=== PATIENT | female | born 1955 | race Caucasian/White ===

== ENCOUNTER 2017-09-05 10:02 | Emergency (ER) | payer BC, SELFPAY ==
[2017-09-05 10:33] VITALS: BP 143/77; PULSE 101; RESP 20; TEMP 37.1; O2SAT 95; BMI 22.9
[2017-09-05 10:42] LABS: UTC Influenza A Antigen Positive (Negative); UTC Influenza B Antigen Negative (Negative)
--- NOTE | 2017-09-05 10:55 | HMH.EDUTC ---
[facility] [place] Disposition Clinical Impression: Influenza A Disposition: Home, Self-Care Condition on Discharge: Good Instructions: DI for Influenza -- Adult Additional Instructions: * Start Tamiflu today if you are going to take it. Discussed risks and possible benefits. * Be careful with OTC cold medications. Be sure safe for your BP and your diabetes * Monitor blood sugar closely. remember what we discussed about sick days and how you can get really high or run low with decreased appetite * Lots of rest * Increase fluids, water, gatorade, powerade, pedialyte if infant/toddler/child * Monitor Temp. Tylenol every 4 hours as needed no more then 5 times a day or 4000mg in 24 hours and/or ibuprofen every 6 hours as needed no more then 3200mg in 24 hours (as long as your primary care doctor has told you that it is ok to take both) for fever/aches/pain. ER if fever no less than 101 despite tylenol and Ibuprofen * You (or your child) are contagious until no fever, aches, chills x 24 hours without medication for symptoms. Follow up IMMEDIATELY with primary care or in UTC/ER for new or worsening symptoms, improvement followed by suddenly feeling worse OR no noticeable improvement over the next 48-72 hours. 911 for difficulty breathing Prescriptions: Oseltamivir Phosphate [Tamiflu 75mg Capsule] 75 mg PO BID #10 cap Forms: Work/School Release Time of Disposition: 11:18 Medical Decision Making Vital Signs: 09/05/17 10:33 Temperature 98.8 F Temperature Source Temporal Artery Scan Pulse Rate [Brachial] 101 H Respiratory Rate 20 Blood Pressure [Right Arm] 143/77 Blood Pressure Mean [Right Arm] 99 Blood Pressure Source [Right Arm] Automatic Cuff Blood Pressure Position [Right Arm] Sitting 02 Sat by Pulse Oximetry 95 Oxygen Delivery Method Room Air - Lab Data Lab Results 09/05/17 10:35: Influenza Type A Ag Positive A, Influenza Type B Ag Negative - Bi Inquiry Pt receiving controlled substance: No [facility] [place] HPI - General Stated complaint: poss flu Time Seen by Provider: 09/05/17 10:55 Mode of Arrival: Ambulatory Source of Information: Patient Limitations: No Limitations Description of Symptoms (Recalled from Triage Doc. by RN): FLU LIKE SYMPTOMS SINCE FRIDAY NIGHT, H/A, BODY ACHES, RUNNY NOSE HEENT Symptoms (Recalled from RN notes): Yes Resp Symptoms (Recalled from RN notes): No Skin Symptoms (Recalled from RN notes): No MS Symptoms (Recalled from RN notes): Yes Functional Status (Recalled from RN notes): NA - History of Present Illness Provider Complaint: c/o I think I have the flu . Fever Tmax 102, aches, chills, nonprod cough, rhinorrhea since night before last. Maria E [place] cold has helped make symptoms tolerable. No known sick contacts. Hx of DM. Monitoring BS closely. initially higher but back to normal 80-120's today. - Related Data Home Medications Medication Instructions Recorded Confirmed Empagliflozin [Jardiance] 10 mg PO DAILY 09/05/17 09/05/17 Metformin HCl [Metformin 500mg 500 mg PO DAILY MDD 500MG 09/05/17 09/05/17 Tablet] Previous Rx's Medication Instructions Recorded Oseltamivir Phosphate [Tamiflu 75 mg PO BID #10 cap 09/05/17 75mg Capsule] Allergies Allergy/AdvReac Type Severity Reaction Status Date / Time No Known Allergies Allergy Verified 09/05/17 10:26 - Worker's Comp Is this a Worker's Comp case?: No [facility] History I have reviewed the patient's past medical history: Yes Medical History: Reports:: Diabetes Mellitus Type 2, Hypertension Denies:: Congestive Heart Failure, Chronic Obstructive Pulmonary Disease (COPD), Coronary Artery Disease Other Surgeries: Yes: Hysterectomy-Total, Other (roger, bladder) - *Social History Smoking Status: Current every day smoker Tobacco Type: cigarettes Alcohol Intake: never - Psychiatric History Expresses thoughts of harming self/others: None Suicide Plan Description: No Plan ROS Obtained: Yes Appropriate systems
--- NOTE | 2017-09-05 11:07 | ED_ITS ---
[facility] [place] Clinical Impression: Influenza A Disposition: Home, Self-Care Condition on Discharge: Good Instructions: DI for Influenza -- Adult Additional Instructions: * Start Tamiflu today if you are going to take it. Discussed risks and possible benefits. * Be careful with OTC cold medications. Be sure safe for your BP and your diabetes * Monitor blood sugar closely. remember what we discussed about sick days and how you can get really high or run low with decreased appetite * Lots of rest * Increase fluids, water, gatorade, powerade, pedialyte if /toddler/child * Monitor Temp. Tylenol every 4 hours as needed no more then 5 times a day or 4000mg in 24 hours and/or ibuprofen every 6 hours as needed no more then 3200mg in 24 hours (as long as your primary care doctor has told you that it is ok to take both) for fever/aches/pain. ER if fever no less than 101 despite tylenol and Ibuprofen * You (or your child) are contagious until no fever, aches, chills x 24 hours without medication for symptoms. Follow up IMMEDIATELY with primary care or in UTC/ER for new or worsening symptoms, improvement followed by suddenly feeling worse OR no noticeable improvement over the next 48-72 hours. 911 for difficulty breathing Prescriptions: Oseltamivir Phosphate [Tamiflu 75mg Capsule] 75 mg PO BID #10 cap Forms: Work/School Release Time of Disposition: 11:18 Medical Decision Making Vital Signs: 09/05/17 10:33 Temperature 98.8 F Temperature Source Temporal Artery Scan Pulse Rate [Brachial] 101 H Respiratory Rate 20 Blood Pressure [Right Arm] 143/77 Blood Pressure Mean [Right Arm] 99 Blood Pressure Source [Right Arm] Automatic Cuff Blood Pressure Position [Right Arm] Sitting 02 Sat by Pulse Oximetry 95 Oxygen Delivery Method Room Air - Lab Data Lab Results 09/05/17 10:35: Influenza Type A Ag Positive A, Influenza Type B Ag Negative - Bi Inquiry Pt receiving controlled substance: No [facility] [place] HPI - General Stated complaint: poss flu Time Seen by Provider: 09/05/17 10:55 Mode of Arrival: Ambulatory Source of Information: Patient Limitations: No Limitations Description of Symptoms (Recalled from Triage Doc. by RN): FLU LIKE SYMPTOMS SINCE FRIDAY NIGHT, H/A, BODY ACHES, RUNNY NOSE HEENT Symptoms (Recalled from RN notes): Yes Resp Symptoms (Recalled from RN notes): No Skin Symptoms (Recalled from RN notes): No MS Symptoms (Recalled from RN notes): Yes Functional Status (Recalled from RN notes): NA - History of Present Illness Provider Complaint: c/o I think I have the flu . Fever Tmax 102, aches, chills , nonprod cough, rhinorrhea since night before last. Maria E [place] cold has helped make symptoms tolerable. No known sick contacts. Hx of DM. Monitoring BS closely. initially higher but back to normal 80-120's today. - Related Data Home Medications Medication Instructions Recorded Confirmed Empagliflozin [Jardiance] 10 mg PO DAILY 09/05/17 09/05/17 Metformin HCl [Metformin 500mg 500 mg PO DAILY MDD 500MG 09/05/17 09/05/17 Tablet] Previous Rx's Medication Instructions Recorded Oseltamivir Phosphate [Tamiflu 75 mg PO BID #10 cap 09/05/17 75mg Capsule] Allergies Allergy/AdvReac Type Severity Reaction Status Date / Time No Known Allergies Allergy Verified 09/05/17 10:26 - Worker's Comp
== END 2017-09-05 11:25 | disposition home or self-care (01) ==
PROVIDERS: Emergency Provider Nurse Practitioner Family
DX: J10.1 Influenza due to other identified influenza virus with other respiratory manifestations (principal)
CPT/HCPCS: 87276; 87804; 99202

== ENCOUNTER 2017-10-07 12:40 | Emergency (ER) | payer BC, SELFPAY ==
[2017-10-07 13:41] VITALS: BP 153/87; PULSE 77; RESP 18; TEMP 36.6; O2SAT 99; BMI 23.6
[2017-10-07 14:08] LABS: Basophils % 0.2 % (0.1-2.0); Eosinophils % 0.4 % (0.1-12.0); Hematocrit 43.3 % (37.0-47.0); Hemoglobin 14.1 g/dL (12.2-16.2); Lymphocytes # 2.1 K/mm3 (0.7-4.5); Lymphocytes % 22.6 K/mm3 (10-50); Mean Corpuscular HGB Conc 32.6 g/dL (31.8-35.4); Mean Corpuscular Hemoglobin 30.7 pg (27.0-31.2); Mean Corpuscular Volume 94.2 fl (81-99); Mean Platelet Volume 7.6 fl (7.4-10.4); Monocytes # 0.3 K/mm3 (0.1-1.0); Monocytes % 3.7 % (1.7-9.3); Neutrophils # 6.7 K/mm3 (1.8-7.8); Neutrophils % 73.2 % (37.0-80.0); Platelet Count 223 K/mm3 (142-424); Red Cell Distribution Width 14.5 % (11.5-17.5); White Blood Count 9.2 K/mm3 (4.8-10.8)
[2017-10-07 14:25] LABS: Alanine Aminotransferase 43 U/L (12-78); Albumin Level 3.9 gm/dL (3.4-5.0); Albumin/Globulin Ratio 0.9 (1.1-1.8); Alkaline Phosphatase 97 U/L (46-116); Anion Gap 12.2 mEq/L (5-15); Aspartate Amino Transferase 26 U/L (15-37); Bilirubin,Total 0.3 mg/dL (0.2-1.0); Blood Urea Nitrogen 15 mg/dL (7-18); Calcium 9.2 mg/dL (8.5-10.1); Carbon Dioxide 31 mmol/L (21.0-32.0); Chloride 103 mmol/L (98-107); Creatinine Clearance Estimated 95 mL/min (0-300); Creatinine,Serum 0.62 mg/dL (0.55-1.02); Estimated Glomerular Filt Rate 98 ml/min (>60); GFR (African American) 119 ML/MIN (>60); Globulin 4.5 gm/dl (1.3-3.2); Glucose 128 mg/dL (74-106); Potassium 4.2 mmoL/L (3.5-5.1); Sodium 142 mmol/L (136-145); Total Protein,Serum 8.4 gm/dL (6.4-8.2)
[2017-10-07 14:42] VITALS: BP 135/77; PULSE 70; RESP 18; TEMP 36.8; O2SAT 97
--- NOTE | 2017-10-07 18:26 | HMH.EDNVD ---
ED Disposition Clinical Impression: Viral gastroenteritis Hypertension Qualifiers: Hypertension type: essential hypertension Qualified Code(s): I10 - Essential (primary) hypertension Sinusitis Qualifiers: Sinusitis location: maxillary Chronicity: acute Recurrence: non-recurrent Qualified Code(s): J01.00 - Acute maxillary sinusitis, unspecified Disposition: Home, Self-Care Condition on Discharge: Good Instructions: Sinus Headache, High Blood Pressure, DI for Nausea -- Adult Additional Instructions: Please drink plenty of fluids, take [id number] Imodium for, as needed, check your blood pressure at home, address, at least twice a day, follow-up with PCP within 1-2 weeks for blood pressure reassessment. Prescriptions: Amlodipine Besylate [Norvasc 5mg tablet] 5 mg PO DAILY #30 tab Amoxicillin/Potassium Clav [Augmentin 875-125 Tablet] 1 tab PO Q12H #20 tab Ondansetron [Zofran 4mg ODT] 4 mg PO Q4H PRN #28 tab.rapdis PRN Reason: Nausea Time of Disposition: 18:30 - Critical Care Critical Care Time: No Attestation: On 10/07/17, the high probability of a clinically significant, sudden or life threatening deterioration of the following system(s) required my full and direct attention, intervention and personal management. The time I documented below is in addition to time spent performing reported procedures but includes the following listed in this critical care notation. Medical Decision Making - Medical Records Medical records reviewed: Yes: I reviewed the patient's medical records. Vital Signs: 10/07/17 13:41 10/07/17 14:42 10/07/17 18:45 Temperature 97.9 F 98.2 F 97.8 F Temperature Source Oral Oral Oral Pulse Rate 73 Pulse Rate [Right Radial] 77 70 Respiratory Rate 18 18 16 Blood Pressure 150/86 Blood Pressure [Right Arm] 153/87 135/77 Blood Pressure Mean [Right Arm] 109 96 Blood Pressure Source Automatic Cuff Blood Pressure Source [Right Arm] Automatic Cuff Automatic Cuff Blood Pressure Position Sitting Blood Pressure Position [Right Arm] Sitting 02 Sat by Pulse Oximetry 99 97 Oxygen Delivery Method Room Air Room Air Room Air - Lab Data Lab results reviewed: Yes: I reviewed the patient's lab results. Lab Results 10/07/17 13:57: WBC 9.2, RBC 4.60, Hgb 14.1, Hct 43.3, MCV 94.2, MCH 30.7, MCHC 32.6, RDW 14.5, Plt Count 223, MPV 7.6, Neut % (Auto) 73.2, Lymph % (Auto) 22.6, [place] % (Auto) 3.7, Eos % (Auto) 0.4, Baso % (Auto) 0.2, Neut # (Auto) 6.7, Lymph # (Auto) 2.1, [place] # (Auto) 0.3, Eos # (Auto) 0.0, Baso # (Auto) 0.0 10/07/17 13:57: Sodium 142, Potassium 4.2, Chloride 103, Carbon Dioxide 31, Anion Gap 12.2, BUN 15, Creatinine 0.62, Estimated Creat Clear 95, Estimated GFR 98, Est GFR ( Amer) 119, Glucose 128 H, Calcium 9.2, Total Bilirubin 0.3, AST 26, ALT 43, Alkaline Phosphatase 97, Total Protein 8.4 H, Albumin 3.9, Globulin 4.5 H, Albumin/Globulin Ratio 0.9 L Result diagrams: 10/07/17 13:57 10/07/17 13:57 Orders (Tests/Meds): ED MEDICATIONS Discontinued Medications Generic Name Dose Route Start Last Admin Trade Name Abigail PRN Reason Stop Dose Admin Amoxicillin/Clavulanate Potassium 1 each 10/07/17 18:25 10/07/17 18:48 Augmentin 500mg Tablet PO 10/07/17 18:26 1 each ONCE ONE Administration Protocol Clonidine HCl 0.2 mg 10/07/17 21:00 Clonidine 0.2mg Tablet PO 11/06/17 20:59 TID CHAYITO Clonidine HCl 0.1 mg 10/07/17 18:44 10/07/17 18:46 Clonidine 0.1mg Tablet PO 10/07/17 18:45 0.1 mg ONCE ONE Administration Diphenoxylate HCl/Atropine 5 mg 10/07/17 13:59 10/07/17 14:08 Lomotil 2.5mg Tablet PO 10/07/17 14:00 5 mg ONCE ONE Administration Loperamide HCl 4 mg 10/07/17 13:58 10/07/17 14:07 Imodium 2 Mg Capsule PO 10/07/17 13:59 4 mg ONCE ONE Administration Ondansetron HCl 4 mg 10/07/17 13:58 10/07/17 14:07 Zofran 4mg/2ml Vial IV 10/07/17 13:59 4 mg ONCE ONE Administration - Floridalma
--- NOTE | 2017-10-07 18:30 | ED_ITS ---
ED Disposition Clinical Impression: Viral gastroenteritis Hypertension Qualifiers: Hypertension type: essential hypertension Qualified Code(s): I10 - Essential ( primary) hypertension Sinusitis Qualifiers: Sinusitis location: maxillary Chronicity: acute Recurrence: non-recurrent Qualified Code(s): J01.00 - Acute maxillary sinusitis, unspecified Disposition: Home, Self-Care Condition on Discharge: Good Instructions: Sinus Headache, High Blood Pressure, DI for Nausea -- Adult Additional Instructions: Please drink plenty of fluids, take [id number] Imodium for, as needed, check your blood pressure at home, address, at least twice a day, follow-up with PCP within 1-2 weeks for blood pressure reassessment. Prescriptions: Amlodipine Besylate [Norvasc 5mg tablet] 5 mg PO DAILY #30 tab Amoxicillin/Potassium Clav [Augmentin 875-125 Tablet] 1 tab PO Q12H #20 tab Ondansetron [Zofran 4mg ODT] 4 mg PO Q4H PRN #28 tab.rapdis PRN Reason: Nausea Time of Disposition: 18:30 - Critical Care Critical Care Time: No Attestation: On 10/07/17, the high probability of a clinically significant, sudden or life threatening deterioration of the following system(s) required my full and direct attention, intervention and personal management. The time I documented below is in addition to time spent performing reported procedures but includes the following listed in this critical care notation. Medical Decision Making - Medical Records Medical records reviewed: Yes: I reviewed the patient's medical records. Vital Signs: 10/07/17 13:41 10/07/17 14:42 10/07/17 18:45 Temperature 97.9 F 98.2 F 97.8 F Temperature Source Oral Oral Oral Pulse Rate 73 Pulse Rate [Right Radial] 77 70 Respiratory Rate 18 18 16 Blood Pressure 150/86 Blood Pressure [Right Arm] 153/87 135/77 Blood Pressure Mean [Right Arm] 109 96 Blood Pressure Source Automatic Cuff Blood Pressure Source [Right Arm] Automatic Cuff Automatic Cuff Blood Pressure Position Sitting Blood Pressure Position [Right Arm] Sitting 02 Sat by Pulse Oximetry 99 97 Oxygen Delivery Method Room Air Room Air Room Air - Lab Data Lab results reviewed: Yes: I reviewed the patient's lab results. Lab Results 10/07/17 13:57: WBC 9.2, RBC 4.60, Hgb 14.1, Hct 43.3, MCV 94.2, MCH 30.7, MCHC 32.6, RDW 14.5, Plt Count 223, MPV 7.6, Neut % (Auto) 73.2, Lymph % (Auto) 22.6 , [place] % (Auto) 3.7, Eos % (Auto) 0.4, Baso % (Auto) 0.2, Neut # (Auto) 6.7, Lymph # (Auto) 2.1, [place] # (Auto) 0.3, Eos # (Auto) 0.0, Baso # (Auto) 0.0 10/07/17 13:57: Sodium 142, Potassium 4.2, Chloride 103, Carbon Dioxide 31, Anion Gap 12.2, BUN 15, Creatinine 0.62, Estimated Creat Clear 95, Estimated GFR 98, Est GFR ( Amer) 119, Glucose 128 H, Calcium 9.2, Total Bilirubin 0.3, AST 26, ALT 43, Alkaline Phosphatase 97, Total Protein 8.4 H, Albumin 3.9, Globulin 4.5 H, Albumin/Globulin Ratio 0.9 L Result diagrams: 10/07/17 13:57 10/07/17 13:57 Orders (Tests/Meds): ED MEDICATIONS Discontinued Medications Generic Name Dose Route Start Last Admin Trade Name Abigail PRN Reason Stop Dose Admin Amoxicillin/Clavulanate Potassium 1 each 10/07/17 18:25 10/07/17 18:48 Augmentin 500mg Tablet PO 10/07/17 18:26 1 each ONCE ONE Administration Protocol Clonidine HCl 0.2 mg 10/07/17 21:00 Clonidine 0.2mg Tablet PO 0
[2017-10-07 18:45] VITALS: BP 150/86; PULSE 73; RESP 16; TEMP 36.6; O2SAT 99
== END 2017-10-07 18:51 | disposition home or self-care (01) ==
PROVIDERS: Emergency Provider Emergency Medicine
DX: I10 Essential (primary) hypertension (principal); J01.00 Acute maxillary sinusitis, unspecified; R19.7 Diarrhea, unspecified; R11.2 Nausea with vomiting, unspecified; E11.9 Type 2 diabetes mellitus without complications
CPT/HCPCS: 80053; 85025; 99282; J2405

== ENCOUNTER 2020-10-29 09:20 | Emergency (ER) | payer OTHER, SELFPAY ==
[2020-10-29 09:30] VITALS: BP 125/95; PULSE 96; RESP 20; TEMP 36.5; O2SAT 98; BMI 28.3
--- NOTE | 2020-10-29 09:42 | HMH.EDUTC ---
[facility] [place]ression: Low back strain Qualifiers: Encounter type: initial encounter Qualified Code(s): S39.012A - Strain of muscle, fascia and tendon of lower back, initial encounter Low back pain Qualifiers: Chronicity: acute Back pain laterality: unspecified Sciatica presence: without sciatica Qualified Code(s): M54.5 - Low back pain Disposition: Home, Self-Care Condition on Discharge: Good Instructions: DI for Low Back Pain, DI for Back Strain or Sprain Additional Instructions: Go home and rest. It would be best if you rested tomorrow too. No heavy lifting. No twisting. Take the oral medications as directed. The muscle relaxer (robaxin) will make you drowsy, so don't drive or operate heavy machinery after taking it. Don't take the robaxin (methocarbimol) if you take the cyclobenzaprine (flexeril) that was prescribed by your primary care provider. These are similar medications and you cannot take them both. Follow up with your regular doctor. GO TO THE ER FOR ANY WORSENING SYMPTOMS OR CONCERN, ESPECIALLY BOWEL OR BLADDER ISSUES, SADDLE AREA NUMBNESS, FEVER, ETC The steroid shot that we gave you today can make your blood sugar go up. Watch your blood sugars closely. Follow your diabetic diet closely. If your blood sugars are consistently running high (over 200 to 250 or so) please stop the steroids (prednisone) and follow up with your primary care physician for further treatment. Prescriptions: predniSONE [Prednisone 20mg Tab] 20 mg PO BID 4 Days #8 tab Transmission Status: Received by [place] [facility] Methocarbamol [Robaxin 500mg Tab] 500 mg PO BIDP PRN #30 tab PRN Reason: Muscle Spasm Transmission Status: Received by [facility] Referrals: Florian Gutierrez [Primary Care Provider] - Forms: Work/School Release Time of Disposition: 10:25 Medical Decision Making - Medical Records Medical records reviewed: No: I reviewed the patient's medical records. - Bi Inquiry Pt receiving controlled substance: No Vital Signs: 10/29/20 09:30 10/29/20 10:30 Temperature 97.7 F 97.7 F Temperature Source Oral Pulse Rate 96 H Pulse Rate [Right Brachial] 96 H Respiratory Rate 20 20 Blood Pressure 125/95 H Blood Pressure [Right Arm] 125/95 H Blood Pressure Mean [Right Arm] 105 Blood Pressure Source [Right Arm] Automatic Cuff Blood Pressure Position [Right Arm] Sitting 02 Sat by Pulse Oximetry 98 Oxygen Delivery Method Room Air Orders (Tests/Meds): ED MEDICATIONS Discontinued Medications Generic Name Dose Route Start Last Admin Trade Name Freq PRN Reason Stop Dose Admin Ketorolac Tromethamine 30 mg 10/29/20 10:12 10/29/20 10:20 Ketorolac 60mg/2ml Vial IM 10/29/20 10:13 30 mg ONCE ONE Administration Methylprednisolone Sodium Succinate 60 mg 10/29/20 10:13 10/29/20 10:20 Methylprednisolone Sod Succ 125mg Vial IM 10/29/20 10:14 60 mg ONCE ONE Administration - Radiology Data #1 Image(s): L-Spine Image Reviewed: Yes I reviewed the patient's radiology image, Yes I have reviewed radiologist's interpretation Preliminary Findings: Normal/NAD, No Fracture Seen PROCEDURE: XR LUMBAR SPINE 2-3V CLINICAL INDICATION: work injury Pain COMPARISON: No exams were available for comparison FINDINGS: No fracture or dislocation. No lytic or blastic change. There is normal mineralization. Degenerative disc disease is present at L5-S1. There are small anterior osteophytes levels. There is diffuse vascular calcification. Other findings:None. IMPRESSION: Degenerative disc disease L5-S1 Dictated by: Anil Hernandez MD 10/29/2020 11:51 Anil Hernandez MD in [place] 10/29/2020 11:51 [facility] [place] - General Stated complaint: WC, [id number] Back pain, lifted heavy object Time Seen by Provider: 10/29/20 09:42 - History of Present Illness Provider Complaint: She states that 6 days ago she was lifting a heavy bag of clot
[2020-10-29 10:30] VITALS: BP 125/95; PULSE 96; RESP 20; TEMP 36.5; O2SAT 98
== END 2020-10-29 10:34 | disposition home or self-care (01) ==
PROVIDERS: Emergency Provider Nurse Practitioner Family; PCP General Practice
DX: S39.012A Strain of muscle, fascia and tendon of lower back, initial encounter (principal); X50.0XXA Overexertion from strenuous movement or load, initial encounter; Y92.69 Other specified industrial and construction area as the place of occurrence of the external cause; Y99.0 Civilian activity done for income or pay
CPT/HCPCS: 72100; 96372; 99202; G0463

== ENCOUNTER 2022-08-11 09:13 | Emergency (ER) | payer MEDICARE, SELFPAY ==
[2022-08-11 09:45] VITALS: BP 141/90; PULSE 101; RESP 17; TEMP 37.1; O2SAT 98; BMI 29.5
--- NOTE | 2022-08-11 10:15 | EXP.UTC ---
Discharge Plan Disposition Patient Disposition: Home, Self-Care Condition: Good Prescriptions Prescriptions: New albuterol sulfate [ProAir HFA] 90 mcg/actuation HFA aerosol inhaler 1 inh inhalation QID PRN (Reason: shortness of breath or wheezing) Qty: 6.7 0RF No Action metformin 500 MG tablet 1,000 mg PO DAILY cyclobenzaprine 10 MG tablet 10 mg PO TIDP PRN (Reason: LOWER BACK PAIN) lisinopril-hydrochlorothiazide 1 EACH tablet 1 tab PO DAILY meloxicam 15 MG tablet 15 mg PO DAILY amitriptyline 10 MG tablet 10 mg PO HS duloxetine 20 MG capsule,delayed release(DR/EC) 20 mg PO DAILY methocarbamol 500 MG tablet 500 mg PO BIDP PRN (Reason: Muscle Spasm) Qty: 30 0RF prednisone 20 MG tablet 20 mg PO BID 4 Days Qty: 8 0RF Referrals Follow up/Referrals: Peter Patel MD [Primary Care Provider] - See instructions Activity Restrictions/Add. Instructions Additional Instructions/Restrictions: Tylenol and ibuprofen as needed for pain or fever Humidifier/vaporizer/hot steamy shower Follow-up with primary care tomorrow. Follow-up immediately in the ER of the [facility] for new or worsening symptoms or no noticeable improvement over the next 48-72 hours. Stop smoking Inhaler every 4-6 hours as needed. Should help open airways improved cough, wheezing, shortness of breath Clinical Impressions Clinical Impression: Bronchitis Instructions Patient Instructions: Acute Bronchitis Discharge ED [facility] HPI General Stated complaint: Bodyaches, chills, sore throat Mode of Arrival: Ambulatory Source of Information: Patient Limitations: No Limitations Time Seen by Provider: 08/11/22 10:15 Description of Symptoms (Recalled from Triage Doc. by RN): PATIENT C/O BODY ACHES AND WEAKNESS SINCE YESTERDAY HEENT Symptoms (Recalled from RN notes): No Resp Symptoms (Recalled from RN notes): No Skin Symptoms (Recalled from RN notes): No MS Symptoms (Recalled from RN notes): No Functional Status (Recalled from RN notes): WNL History of Present Illness Provider Complaint: 66 yr old female presents for coughing up clear sputum , body aches and fever since yesterday. no ill contacts Related Data Home Medications Medication Instructions Recorded Confirmed metformin 500 mg tablet 1,000 mg PO DAILY Diabetes 09/05/17 10/29/20 amitriptyline 10 mg tablet 10 mg PO HS SLEEP 10/29/20 10/29/20 cyclobenzaprine 10 mg tablet 10 mg PO TIDP PRN LOWER BACK PAIN 10/29/20 10/29/20 duloxetine 20 mg capsule,delayed 20 mg PO DAILY Anxiety 10/29/20 10/29/20 release lisinopril 20 1 tab PO DAILY Hypertension 10/29/20 10/29/20 mg-hydrochlorothiazide 12.5 mg tablet meloxicam 15 mg tablet 15 mg PO DAILY Arthritis 10/29/20 10/29/20 Previous Rx's Medication Instructions Recorded methocarbamol 500 mg tablet 500 mg PO BIDP PRN Muscle Spasm 10/29/20 #30 tabs prednisone 20 mg tablet 20 mg PO BID 4 days #8 tabs 10/29/20 albuterol sulfate 90 mcg/actuation 1 inh inhalation QID PRN shortness 08/11/22 aerosol inhaler (ProAir HFA) of breath or wheezing #6.7 grams Allergies Allergy/AdvReac Type Severity Reaction Status Date / Time No Known Allergies Allergy Verified 09/05/17 10:26 Worker's Comp Is this a Worker's Comp case?: No [facility] Disclaimer: The information contained in this section may have been updated after the patient was seen, as this information can be updated by other users. Medical History (Reviewed 08/11/22 @ 10:15 by Jaspreet Portillo ([facility]), [employer]) Cancer Diabetes mellitus, type 2 Hyperlipidemia Hypertension Urinary tract infection Surgical History (Reviewed 08/11/22 @ 10:16 by Jaspreet Portillo ([facility]), [employer] ATTENDANT) History of bladder surgery History of cholecystectomy History of hysterectomy Social History (Reviewed 08/11/22 @ 10:16 by Jaspreet Portillo ([facility]), [employer] ATTENDANT) Smoking Status: Current every day smoker tobacco type: cigarettes second hand [employer]
[2022-08-11 10:23] LABS: Coronavirus 19, PCR Not Detected (NotDetected); Influenza A, PCR Not Detected (NotDetected); Influenza B, PCR Not Detected (NotDetected)
[2022-08-11 10:26] VITALS: BP 141/90; PULSE 101; RESP 17; TEMP 37.1; O2SAT 98
== END 2022-08-11 10:37 | disposition home or self-care (01) ==
PROVIDERS: Emergency Provider Nurse Practitioner Family; PCP Family Medicine
DX: J40 Bronchitis, not specified as acute or chronic (principal)
CPT/HCPCS: 99212; C9803; G0463; U0003; U0005

== ENCOUNTER 2022-08-30 11:29 | Emergency (ER) | payer MEDICARE, SELFPAY ==
[2022-08-30 12:20] VITALS: BP 195/90; PULSE 90; RESP 16; TEMP 36.6; O2SAT 98; BMI 27.4
--- NOTE | 2022-08-30 12:50 | EXP.UTC ---
Discharge Plan Disposition Patient Disposition: Home, Self-Care Condition: Good Prescriptions Prescriptions: New cyclobenzaprine 10 mg tablet 10 mg PO TID PRN (Reason: muscle spasm) Qty: 15 0RF No Action metformin 500 MG tablet 1,000 mg PO DAILY cyclobenzaprine 10 MG tablet 10 mg PO TIDP PRN (Reason: LOWER BACK PAIN) lisinopril-hydrochlorothiazide 1 EACH tablet 1 tab PO DAILY meloxicam 15 MG tablet 15 mg PO DAILY amitriptyline 10 MG tablet 10 mg PO HS duloxetine 20 MG capsule,delayed release(DR/EC) 20 mg PO DAILY methocarbamol 500 MG tablet 500 mg PO BIDP PRN (Reason: Muscle Spasm) Qty: 30 0RF prednisone 20 MG tablet 20 mg PO BID 4 Days Qty: 8 0RF albuterol sulfate [ProAir HFA] 90 mcg/actuation HFA aerosol inhaler 1 inh inhalation QID PRN (Reason: shortness of breath or wheezing) Qty: 6.7 0RF Referrals Follow up/Referrals: Peter Patel MD [Primary Care Provider] - See instructions Activity Restrictions/Add. Instructions Additional Instructions/Restrictions: *Ibuprofen albino 6 hours with meal as needed for pain/inflammation if you can take it *Remember you had a Toradol shot in the clinic today, which is similar to Motrin *Not additional anti-inflammatory like motrin, aleve, advil with the above amount of ibuprofen. You can still take Tylenol every 4 hours as needed if you need something else for pain *Ice 20 minutes every 2 hours for the first 48 hours after the initial injury followed by moist heat every 20 minutes 3-4 times a day to affected area *Muscle relaxer every 8 hours as needed for muscle spasms but remember, it WILL cause drowsiness You cannot take it and drive, operate machinery or care for small children. *Keep this area active, no movement leads to more stiffness, However take it easy and avoid heavy lifting pushing or pulling *Follow up with you family doctor if no improvement for further treatment Clinical Impressions Clinical Impression: Low back pain Qualifiers: Chronicity: unspecified Back pain laterality: bilateral Sciatica presence: without sciatica Qualified Code(s): M54.50 - Low back pain, unspecified Instructions Patient Instructions: Low Back Pain, DI for Low Back Pain, Cyclobenzaprine Discharge ED Provider: Nicole Reyna [facility] HPI General Stated complaint: Lower back pain Mode of Arrival: Ambulatory Source of Information: Patient Limitations: No Limitations Time Seen by Provider: 08/30/22 12:50 Description of Symptoms (Recalled from Triage Doc. by RN): pt comes in with c/o back pain that began friday. HEENT Symptoms (Recalled from RN notes): No Resp Symptoms (Recalled from RN notes): No Skin Symptoms (Recalled from RN notes): No MS Symptoms (Recalled from RN notes): Yes Functional Status (Recalled from RN notes): n/a History of Present Illness Provider Complaint: Patient states she started having pain in her lower back on Fri States that it has continued to get worse States that hurts when she moves Denies loss of control of bowel or bladder Related Data Home Medications Medication Instructions Recorded Confirmed metformin 500 mg tablet 1,000 mg PO DAILY Diabetes 09/05/17 08/30/22 amitriptyline 10 mg tablet 10 mg PO HS SLEEP 10/29/20 08/30/22 cyclobenzaprine 10 mg tablet 10 mg PO TIDP PRN LOWER BACK PAIN 10/29/20 08/30/22 duloxetine 20 mg capsule,delayed 20 mg PO DAILY Anxiety 10/29/20 08/30/22 release lisinopril 20 1 tab PO DAILY Hypertension 10/29/20 08/30/22 mg-hydrochlorothiazide 12.5 mg tablet meloxicam 15 mg tablet 15 mg PO DAILY Arthritis 10/29/20 08/30/22 Previous Rx's Medication Instructions Recorded methocarbamol 500 mg tablet 500 mg PO BIDP PRN Muscle Spasm 10/29/20 #30 tabs prednisone 20 mg tablet 20 mg PO BID 4 days #8 tabs 10/29/20 albuterol sulfate 90 mcg/actuation 1 inh inhalation QID PRN shortness 08/11/22 aerosol inhaler (ProAir HFA) of breath or wheezing #6.7 grams cyclobenzaprine
--- NOTE | 2022-08-30 12:59 | XR_ITS ---
FINAL REPORT CLINICAL HISTORY: low back pain COMPARISON: October 2020 FINDINGS: AP and lateral views were obtained. There is no acute fracture. There is no malalignment. There are mild and moderate degenerative changes. There is disc space narrowing at L5-S1. There is mild rightward curvature. There is moderate vascular calcification. IMPRESSION: Mild and moderate degenerative changes, stable. Reviewed, Interpreted and Dictated by Nicko Arnett III, MD Transcribed by Yg De La Cruz Authenticated and [facility]
[2022-08-30 14:25] VITALS: BP 155/88; PULSE 90; RESP 16; TEMP 36.6
[2022-08-30 14:36] LABS: Apearance,Urine Clear (Clear); Bilirubin,Urine Negative (Negative); Blood, Urine Negative (Negative); Color,Urine Yellow (Yellow); Glucose,Urine (UA) Negative (Negative); Ketones,Urine Negative (Negative); PH,Urine 5.5 (5.0-8.5); Protein,Urine Negative (Negative)
[2022-08-30 14:37] LABS: UTC Leukocyte Esterase,Urine Negative (Negative); UTC Nitrate,Urine Negative (Negative); Urobilinogen,Urine 0.2 EU/dl (0.2)
== END 2022-08-30 14:25 | disposition home or self-care (01) ==
PROVIDERS: Emergency Provider Nurse Practitioner; PCP Family Medicine
DX: M54.50 Low back pain, unspecified (principal)
CPT/HCPCS: 72100; 81003; 99212; G0463

== ENCOUNTER → 2022-11-22 09:08 | Outpatient (CLI) | payer MEDICARE, SELFPAY ==
--- NOTE | 2022-11-22 | CA_ITS ---
FINAL REPORT TECHNIQUE: Ultrasound images of the deep venous system were obtained from the left groin to the calf veins. CLINICAL HISTORY: .LEG PAIN BEGINNING IN HIP DOWN FINDINGS: The deep venous system is normally compressible. Normal flow is identified. IMPRESSION: No evidence of left lower extremity DVT. Reviewed, Interpreted and Dictated by Grey Prieto MD Transcribed by Clau Pena Authenticated and [facility]
--- NOTE | 2022-11-22 09:19 | XR_ITS ---
FINAL REPORT CLINICAL HISTORY: LEFT HIP PAIN FINDINGS: LEFT HIP Three views were obtained. There is no acute fracture or dislocation. There is a small osteophyte at the inferior margin of the femoral head. No soft tissue abnormality is identified. IMPRESSION: Mild osteoarthritis. Reviewed, Interpreted and Dictated by Grey Prieto MD Transcribed by Alysia Mckeon Authenticated and . [facility]
--- NOTE | 2022-11-22 09:19 | XR_ITS ---
FINAL REPORT CLINICAL HISTORY: low back pain COMPARISON: 08/30/2022 FINDINGS: LUMBAR SPINE Five views demonstrate no acute fracture. There is moderate to advanced disc space narrowing at L5-S1. Note is made of vascular calcification. There is no malalignment. IMPRESSION: Moderate to advanced disc space narrowing at L5-S1. No significant change from previous. Reviewed, Interpreted and Dictated by Grey Prieto MD Transcribed by Alysia Mckeon Authenticated and [facility]
== END ==
PROVIDERS: PCP Family Medicine; Visit Provider Nurse Practitioner Family
DX: M79.605 Pain in left leg (principal); M79.662 Pain in left lower leg; M25.552 Pain in left hip
CPT/HCPCS: 72110; 73502; 93971

== ENCOUNTER 2023-01-02 10:00 | Outpatient (RCR) | payer MEDICARE, SELFPAY | END 2023-01-02 10:05 | disposition home or self-care (01) | LOC: PT 10:00 | PROVIDERS: PCP Family Medicine; Visit Provider Specialist/Technologist Athletic Trainer | DX: M51.36 Other intervertebral disc degeneration, lumbar region (principal) | CPT/HCPCS: 97010; 97012; 97014; 97110; 97163; G0283 ==

== ENCOUNTER → 2023-01-20 09:07 | Outpatient (CLI) | payer MEDICARE, SELFPAY ==
--- NOTE | 2023-01-20 09:13 | XR_ITS ---
FINAL REPORT CLINICAL HISTORY: post jose FINDINGS: Using L1-4, the bone mineral density of the spine is 1.029 g/cm2, corresponding to T-score of -0.2. Using the left hip, the bone mineral density of the femoral neck is 0.881 g/cm2, corresponding to a T-score of -0.5. Using the right hip, the bone mineral density of the femoral neck is 0.850 g/cm2, corresponding to a T-score of 1.0. IMPRESSION: Normal bone mineral density of the lumbar spine and bilateral hips. Reviewed, Interpreted and Dictated by Nicko Arnett III, MD Transcribed by Yg De La Cruz Authenticated and [facility]
== END ==
PROVIDERS: PCP Family Medicine; Visit Provider Family Medicine
DX: Z78.0 Asymptomatic menopausal state (principal)
CPT/HCPCS: 77080

== ENCOUNTER 2023-10-29 14:38 | Outpatient (CLI) | payer MEDICARE, SELFPAY ==
--- NOTE | 2023-10-29 14:49 | XR_ITS ---
FINAL REPORT CLINICAL HISTORY: CHRONIC COUGH, smoker FINDINGS: PA and lateral views of the chest are obtained. There is no prior exam for comparison. The cardiac and mediastinal silhouettes are within normal limits. The lungs are clear. There is no pleural effusion, pneumothorax, or acute osseous abnormality. IMPRESSION: No radiographic evidence of acute cardiac or pulmonary disease. Reviewed, Interpreted and Dictated by [place]ia Brannon MD Transcribed by Alysia Mckeon Authenticated and [facility]
== END 2023-10-29 23:59 ==
PROVIDERS: PCP Family Medicine; Visit Provider Family Medicine
DX: R05.3 Chronic cough (principal); F17.210 Nicotine dependence, cigarettes, uncomplicated
CPT/HCPCS: 71046

== ENCOUNTER 2024-02-27 13:41 | Outpatient (CLI) | payer MEDICARE, SELFPAY ==
--- NOTE | 2024-02-27 | CA_ITS ---
FINAL REPORT TECHNIQUE: Compression gayle scale and Doppler evaluation CLINICAL HISTORY: Chronic right leg pain, Smoker FINDINGS: Femoral and popliteal veins show normal compressibility and flow. Visualized portion of the calf veins are patent by Doppler exam. IMPRESSION: No evidence of right lower extremity deep venous thrombosis Reviewed, Interpreted and Dictated by Mansoor Luther MD Transcribed by Alysia Mckeon Authenticated and [facility]
== END 2024-02-27 23:59 | disposition home or self-care (01) ==
LOC: RT 13:42
PROVIDERS: PCP Family Medicine; Visit Provider Nurse Practitioner
DX: M79.604 Pain in right leg (principal)
CPT/HCPCS: 93971

== ENCOUNTER 2024-04-22 10:20 | Outpatient (CLI) | payer MEDICARE, SELFPAY ==
[2024-04-22 10:49] LABS: Basophils # 0.1 K/mm3 (0-0.2); Basophils % 0.6 % (0.1-2.0); Eosinophils # 0.1 K/mm3 (0.0-0.4); Hematocrit 44.9 % (37.0-47.0); Hemoglobin 14.2 g/dL (12.2-16.2); Lymphocytes # 2.6 K/mm3 (0.7-4.5); Lymphocytes % 28.9 % (10-50); Mean Corpuscular HGB Conc 31.6 g/dL (31.8-35.4); Mean Corpuscular Volume 98.1 fl (81-99); Monocytes # 0.3 K/mm3 (0.1-1.0); Monocytes % 3.3 % (1.7-9.3); Neutrophils % 66.1 % (37.0-80.0); Platelet Count 254 K/mm3 (142-424); Red Blood Count 4.58 M/mm3 (4.20-5.40); Red Cell Distribution Width 14.7 % (11.5-17.5)
[2024-04-22 11:19] LABS: Albumin Level 4.6 g/dl (3.5-5.0); Chloride 104 mmol/L (98-107)
[2024-04-22 11:20] LABS: Potassium 3.8 mmoL/L (3.5-5.1); Sodium 139 mmol/L (136-145)
[2024-04-22 11:22] LABS: Alanine Aminotransferase 23 U/L (12-78); Anion Gap 12.8 mEq/L (5-15); Aspartate Amino Transferase 27 U/L (14-36); Blood Urea Nitrogen 8 mg/dl (7-17); Carbon Dioxide 26 mmol/L (22.0-30.0); Estimated Glomerular Filt Rate 100 ml/min (>60); GFR (African American) 121 ML/MIN (>60); Total Protein,Serum 7.6 g/dl (6.3-8.2)
[2024-04-22 11:23] LABS: Alkaline Phosphatase 75 U/L (38-126); Bilirubin,Direct 0.5 mg/dl (0.0-0.4); Bilirubin,Indirect 0.1 mg/dL (0.0-0.9); Bilirubin,Total 0.6 mg/dl (0.2-1.3); Calcium 9.6 mg/dl (8.4-10.2); Chol/HDL Ratio 2.4 (1-3.5); Cholesterol 158 mg/dl (140-200); Glucose 86 mg/dl (74-100); HDL Cholesterol 66 mg/dl (40-60); Magnesium 1.8 mg/dl (1.6-2.3); Triglycerides 101 mg/dl (30-150); VLDL Cholesterol 20 mg/dL (0-40)
[2024-04-22 11:34] LABS: Direct LDL Cholesterol 64.83 mg/dL (100-129)
[2024-04-22 11:42] LABS: Free T4 (Free Thyroxine) 1.16 ng/dl (0.78-2.19)
[2024-04-22 11:56] LABS: Thyroid Stimulating Hormone 1.07 uIU/mL (0.465-4.68)
[2024-04-22 12:20] LABS: Troponin I < 0.01 ng/ml (0.00-0.034)
== END 2024-04-22 23:59 | disposition home or self-care (01) ==
LOC: LAB 10:21
PROVIDERS: PCP Nurse Practitioner; Visit Provider Nurse Practitioner
DX: I10 Essential (primary) hypertension (principal); I20.9 Angina pectoris, unspecified; R06.00 Dyspnea, unspecified; R53.83 Other fatigue; E78.5 Hyperlipidemia, unspecified; E11.9 Type 2 diabetes mellitus without complications
CPT/HCPCS: 36415; 80048; 80061; 80076; 83735; 84439; 84443; 84484; 85025

== ENCOUNTER 2024-04-23 06:21 | Outpatient (CLI) | payer MEDICARE, SELFPAY ==
--- NOTE | 2024-04-23 | CA_ITS ---
APPROVED REPORT Exam: Pharmacologic Technologist: Zunilda Quevedo, Ht: 5 ft 5 in Wt: 154 lbs BSA: 1.77 m2 HR: 75 bpm BP: 207/103 mmHg Rhythm: NSR, PAC, NS T wave abn Indications: Angina, Dyspnea Medical History Medications: Metformin,,,,, Trazadone,,,,, Atorvastatin,,,,, INSULIN,,,,, MeLOXICAM,,,,, DulOXETINE,,,,, Losartan HCTZ,,,,, Cardiac Risk Factors: HTN, Hyperlipidemia, Diabetes (non-insulin), Smoking Stress Test Details Test: LEXISCAN HR Resting HR: 75 bpm Max Heart Rate (APMHR): 154 bpm Max HR Achieved: 108 bpm Target HR (85% APMHR): 131 bpm % of APMHR: 70 Recovery HR: 84 bpm BP Resting BP: 181/89 mmHg Max BP: 207/103 mmHg Recovery BP: 175.0/87.0 mmHg ECG Resting ECG: NSR, PAC, NS T wave abn Stress ECG: No significant ST changes Arrhythmia: PVCs, PACs Clinical Exercise duration: 04:00 min Highest Stage Achieved: Exercise capacity: 1.0 METs Stress ECG Conclusion Clonidine .1mg PO given before sarahy due to markedly elevated BP at baseline. Pt experinced SOA, chest pressure and stomach cramps. Ectopy: Occasional PVC and PAC noted. ST changes: None Conclusion: Elevated BP at baseline. Recommend BP control. Unremarkable lexiscan. Myoview images reported separately. Test Summary REST . . . . . . . Sitting REST 48:21 . . 75 . 181/ 89 . . Stage 1 01:00 . . 97 . . . . Stage 2 01:00 . . 98 . 181/ 81 . . Stage 3 01:00 . . 88 . 185/ 78 . . Stage 4 01:00 . . 89 . . . Stop exercise at 04:00 RECOVERY 01:00 . . 85 . 180/ 90 . . RECOVERY 02:00 . . 81 . 175/ 87 . . RECOVERY 03:00 . . 83 . 190/ 85 . . RECOVERY 04:00 . . 80 . 190/ 85 . . RECOVERY 04:11 . . 81 . 189/ 85 . . Electronically signed by : Maggie Izquierdo MD 04/26/2024 11:34:44
--- NOTE | 2024-04-23 06:24 | CA_ITS ---
APPROVED REPORT EXAM: Comprehensive 2D, Doppler, and color-flow Echocardiogram Manager Track: Landy Roblero RT(R) Ht: 5 ft 5 in Wt: 152lbs BSA: 1.76 BP: 184/66 mmHg Indications: CP, smoker, fatigue, HTN, DM, SOB, hyperlipidemia 2D Dimensions LA Volume 19.20 mL LA Volume Index 10.70 mL/m2 (M/F) 16-34 EF AP4 56.20 % GL Strain -12.3 % M-Mode Dimensions RVDd 1.93 cm (0.9-2.6) LA Diam 2.83 cm (1.9-4.0) LVDd 4.22 cm (3.5-5.7) LVDs 3.36 cm (3.5-5.7) IVSd 0.96 cm (0.6-1.1) PWd 0.86 cm (0.6-1.1) EF (Teich) 42.00% FS 20.40% EDV (Teich) 79.50 mL ESV (Teich) 46.10 mL LV Diastology E Decel Time 190 (160-240 msec) E/A Ratio 0.88 Mitral Valve MV E Max Wallace. 58.0 (40-130 cm/s) MV A Velocity 66.0 (40-130 cm/s) E/A Ratio 0.88 MV PHT 56.0 ms Tricuspid Valve TR P. Velocity 198.00 cm/s RAP Estimate 10.00 mmHg RVSP 25.70 mmHg Left Ventricle The left ventricle is normal size. The left ventricular systolic function is normal. The left ventricular ejection fraction is within the normal range. There is increased LV wall thickness. There is normal LV segmental wall motion. The left ventricular diastolic function is normal. LVEF is 55%. Right Ventricle The right ventricle is normal size. The right ventricular systolic function is normal. Atria The left atrium size is normal. The right atrium size is normal. The interatrial septum is not well-visualized. Aortic valve is mildly thickened. Aortic Valve There is no aortic valvular stenosis. No aortic regurgitation is present. Mitral Valve The mitral valve is mildly thickened. No evidence of mitral valve stenosis. Mild mitral regurgitation. Tricuspid Valve The tricuspid valve leaflets are thin and pliable. Trace tricuspid regurgitation. There is insufficient TR jet to estimate RVSP. Pulmonic Valve The pulmonary valve is normal in structure. Trace pulmonic regurgitation. Great Vessels The aortic root is normal in size. IVC is normal in size and collapses >50% with inspiration. Pericardium There is no pericardial effusion. Other Information Study Quality: Technically Difficult Conclusion Technically difficult study due to poor acoustic windows. Normal biventricular systolic function. Mild MR. Electronically signed by : Maggie Izquierdo MD 04/27/2024 11:32:16
--- NOTE | 2024-04-23 06:28 | NM_ITS ---
APPROVED REPORT Exam: Nuclear Stress Test Indication: chest pain..soa..fatigue Patient Location: Outpatient Stress Tech: Zunilda LI Tech:Cynthia LongoriaJIM RT(R)(N) Ht: 5 ft 5 in Wt: 151 lbs HR: 75 bpm BP: 181/89 mmHg BSA: 1.76 m2 TID: 1.22 BMI: 25.1 History: chest pain..soa..fatigue Procedure: Patient received 0.4 mg of intravenous Lexiscan, resting heart rate 75 bpm, resting blood pressure 181/89 mmHg, with Lexiscan maximum heart rate achieved was 108 bpm which is 85 % of the maximum predicted heart rate and blood pressure was 207/103 mmHg. With Lexiscan, patient denied any complaint of chest pain. Cardiac Stress and Resting SPECT Images: Cardiac Stress and Resting SPECT images were obtained using technetium 99m Myoview 31.5 mCi stress and 10.39 mCi at rest. Resting and stress imaging in supine and prone positions demonstrate no evidence of fixed or reversible perfusion defects. There is increase in transient ischemic dilatation ratio (TID 1.22), suggestive of possible multivessel disease or balanced ischemia. Gated imaging demonstrates normal global and regional LV systolic function. LVEF is calculated at 60%. Conclusion: No evidence of fixed or reversible perfusion defects. There is increase in transient ischemic dilatation ratio (TID 1.22), suggestive of possible multivessel disease or balanced ischemia. Gated imaging demonstrates normal global and regional LV systolic function. LVEF is calculated at 60%. Electronically signed by : Maggie Izquierdo MD 04/26/2024 11:36:38
[2024-04-23] MEDS: SODIUM CHLORIDE 0.9% 10ML SYR (RAD ONLY) 10 ML IV ×2 (09:35)
[2024-04-23] MEDS: REGADENOSON 0.4MG/5ML SYRINGE 0.4 MG IV (09:35)
[2024-04-23] MEDS: ISOTOPE MYOVIEW (PER STUDY) 1 DOSE IV (09:35)
== END 2024-04-23 23:59 | disposition home or self-care (01) ==
LOC: RAD 06:24
PROVIDERS: PCP Nurse Practitioner; Visit Provider Nurse Practitioner
DX: R06.00 Dyspnea, unspecified (principal); R53.83 Other fatigue; I20.9 Angina pectoris, unspecified; I10 Essential (primary) hypertension; F17.210 Nicotine dependence, cigarettes, uncomplicated
CPT/HCPCS: 78452; 93017; 93018; 93306; A9502; J2785

== ENCOUNTER 2024-04-26 06:24 | Emergency (ER) | payer MEDICARE, SELFPAY ==
[2024-04-26] VITALS (12 sets, daily range): BP systolic 151–228; BP diastolic 78–111; PULSE 66–96; RESP 16–20; TEMP 36.7; O2SAT 94–98; BMI 25.1
--- NOTE | 2024-04-26 06:42 | ECG_ITS ---
APPROVED REPORT Exam: Resting ECG HR:84 bpm ECG Measurements Heart Rate 84 AXES WY 157 P 79 QRSd 90 QRS -15 QT 343 T 78 QTc 385 Conclusion SINUS RHYTHM NORMAL ECG Electronically signed by : SHARON BIRMINGHAM, 04/26/2024 15:08:28
--- NOTE | 2024-04-26 06:51 | CT_ITS ---
FINAL REPORT TECHNIQUE: Axial imaging of the head was obtained without contrast. This study was performed with techniques to keep radiation doses as low as reasonably achievable, (ALARA). Individualized dose reduction techniques using automated exposure control or adjustment of mA and/or kV according to the patient''s size were employed. CLINICAL HISTORY: SOSA w/ severe HTN FINDINGS: The ventricles are normal in size. There is no evidence of hemorrhage. No masses are identified. No extra-axial fluid is seen. The sinuses are normal. There is no acute osseous abnormality. IMPRESSION: No acute intracranial abnormality. Reviewed, Interpreted and Dictated by Grey Prieto MD Transcribed by Clau Pena Authenticated and [facility]
--- NOTE | 2024-04-26 06:52 | HMH.EDGENADL ---
Discharge Plan Disposition Patient Disposition: Left Against Medical Advice Prescriptions Prescriptions: No Action atorvastatin 10 mg tablet 10 mg PO DAILY Patient Comments: TAKE 1 TABLET BY MOUTH ONCE DAILY FOR CHOLESTEROL trazodone 100 mg tablet 100 mg PO HS Patient Comments: TAKE 1 TABLET BY MOUTH ONCE DAILY insulin glargine [Lantus Solostar U-100 Insulin] 100 unit/mL (3 mL) insulin pen SQ losartan-hydrochlorothiazide 50-12.5 mg tablet 1 tab PO DAILY Qty: 30 2RF metformin 500 MG tablet 1,000 mg PO DAILY meloxicam 15 MG tablet 15 mg PO DAILY duloxetine 20 MG capsule,delayed release(DR/EC) 20 mg PO DAILY Referrals Follow up/Referrals: Carly Gilbert APRN [Primary Care Provider] - See instructions Clinical Impressions Clinical Impression: Left against medical advice, HTN (hypertension) Print Language Print Language: Togolese Discharge ED Provider: Skinny Ledesma General Adult HPI <Deven Olmedo MD - Last Filed: 04/26/24 08:03> General Chief complaint: Recheck/Abnormal Lab/Rx Stated complaint: 211/191 high bp Time Seen by Provider: 04/26/24 06:36 Mode of Arrival: Ambulatory Source of Information: Patient Limitations: No Limitations Description of Symptoms (Recalled from ER Triage Doc. by RN): Pt reports to ED with cc of high blood pressure. Pt states she took her bp at home and it read 211/101. Pt states having a recent change in blood pressure medication. Pt states having jaw pain, arm tingling, and a headache. Pt denies chest pain. History of Present Illness HPI narrative: 68-year-old female presents to the ER with a complaint of high blood pressure. Patient reports a few days ago the cardiology team changed her blood pressure medication from lisinopril to losartan. She has been tracking her blood pressure closely and it read over 200s. Patient is having right sided headache, bilateral arm tingling as well. She states the symptoms go away when her blood pressure improves. Patient denies chest pain or difficulty breathing, no nausea, vomiting, abdominal pain, or diarrhea. ROS otherwise negative. Patient does report she took her morning meds around 0530. Related Data Home Medications ?Medication ?Instructions ?Recorded ?Confirmed metformin 500 mg tablet 1,000 mg PO DAILY Diabetes 09/05/17 08/30/22 duloxetine 20 mg capsule,delayed 20 mg PO DAILY Anxiety 10/29/20 08/30/22 release meloxicam 15 mg tablet 15 mg PO DAILY Arthritis 10/29/20 08/30/22 atorvastatin 10 mg tablet 10 mg PO DAILY 04/22/24 insulin glargine 100 unit/mL (3 unit SQ 04/22/24 mL) subcutaneous pen (Lantus Solostar U-100 Insulin) trazodone 100 mg tablet 100 mg PO HS 04/22/24 Previous Rx's ?Medication ?Instructions ?Recorded losartan 50 mg-hydrochlorothiazide 1 tab PO DAILY #30 tabs 04/22/24 12.5 mg tablet Allergies Allergy/AdvReac Type Severity Reaction Status Date / Time acetaminophen [From Percocet] AdvReac Verified 04/22/24 09:41 oxycodone [From Percocet] AdvReac Verified 04/22/24 09:41 PFSH <Deven Olmedo MD - Last Filed: 04/26/24 08:03> PFS Disclaimer: The information contained in this section may have been updated after the patient was seen, as this information can be updated by other users. Medical History (Updated 04/26/24 @ 12:55 by Skinny Ledesma MD) Diabetes mellitus Fatigue Dyspnea Typical angina Cancer Urinary tract infection Diabetes mellitus, type 2 Hyperlipidemia Hypertension Surgical History History of bladder surgery History of hysterectomy History of cholecystectomy Social History Smoking Status: Current every day smoker tobacco type: cigarettes second hand exposure: No alcohol intake: never current occupational status: other Travel in the last 8 weeks: None <Deven Olmedo MD - Last Filed:
[2024-04-26 07:00] LABS: Basophils # 0.1 K/mm3 (0-0.2); Basophils % 1.1 % (0.1-2.0); Eosinophils # 0.2 K/mm3 (0.0-0.4); Eosinophils % 1.8 % (0.1-12.0); Hematocrit 49.2 % (37.0-47.0); Hemoglobin 15.6 g/dL (12.2-16.2); Lymphocytes % 32.8 % (10-50); Mean Corpuscular HGB Conc 31.6 g/dL (31.8-35.4); Mean Corpuscular Hemoglobin 31.7 pg (27.0-31.2); Mean Corpuscular Volume 100.3 fl (81-99); Monocytes # 0.4 K/mm3 (0.1-1.0); Neutrophils # 5.5 K/mm3 (1.8-7.8); Neutrophils % 60.4 % (37.0-80.0); Platelet Count 248 K/mm3 (142-424); Red Blood Count 4.91 M/mm3 (4.20-5.40); Red Cell Distribution Width 14.8 % (11.5-17.5); White Blood Count 9.2 K/mm3 (4.8-10.8)
[2024-04-26 07:03] LABS: Chloride 102 mmol/L (98-107); Potassium 3.9 mmoL/L (3.5-5.1); Sodium 138 mmol/L (136-145)
[2024-04-26 07:04] LABS: INR 0.88 (0.9-1.1)
[2024-04-26 07:06] LABS: Alanine Aminotransferase 23 U/L (12-78); Albumin/Globulin Ratio 1.3 (1.1-1.8); Alkaline Phosphatase 81 U/L (38-126); Anion Gap 12.9 mEq/L (5-15); Aspartate Amino Transferase 34 U/L (14-36); Bilirubin,Total 0.6 mg/dl (0.2-1.3); Blood Urea Nitrogen 20 mg/dl (7-17); Calcium 10.1 mg/dl (8.4-10.2); Carbon Dioxide 27 mmol/L (22.0-30.0); Creatinine Clearance Estimated 60 mL/min (50-200); Estimated Glomerular Filt Rate 84 ml/min (>60); GFR (African American) 101 ML/MIN (>60); Globulin 3.8 g/dL (1.3-3.2); Glucose 131 mg/dl (74-100); Total Protein,Serum 8.8 g/dl (6.3-8.2)
[2024-04-26 07:19] LABS: Troponin I < 0.01 ng/ml (0.00-0.034)
--- NOTE | 2024-04-26 07:27 | PC.NURSE ---
rounded on pt. no needs voiced at this time. bed in lowest position. call light within reach.
--- NOTE | 2024-04-26 08:50 | PC.NURSE ---
pt alerted staff via call light. this nurse went to room. pt was requesting to go outside and smoke. this nurse explained the hospital was a non-smoking facility and she was not able to leave the ER with her IV. explained to pt we were waiting for her CT results and i would check an ETA. pt agreeable to stay at this time.
--- NOTE | 2024-04-26 09:18 | PC.NURSE ---
pt called out via call light. pt requested her IV be taken out to go outside and smoke. Sandrita at the bedside to explain to pt this was a non-smoking facility. pt started yelling at staff stating she wanted to leave. Deedee had pt sign an AMA form at this time.
== END 2024-04-26 09:23 | disposition left against medical advice (07) ==
PROVIDERS: Emergency Medicine; Emergency Provider Emergency Medicine; PCP Nurse Practitioner
DX: R51.9 Headache, unspecified (principal); R20.2 Paresthesia of skin; I10 Essential (primary) hypertension; E11.9 Type 2 diabetes mellitus without complications; I20.9 Angina pectoris, unspecified; E78.5 Hyperlipidemia, unspecified; F17.210 Nicotine dependence, cigarettes, uncomplicated; R39.2 Extrarenal uremia
CPT/HCPCS: 70450; 80053; 84484; 85025; 85610; 93005; 96374; 99285

== ENCOUNTER 2024-06-02 07:36 | Day surgery (SDC) | payer MEDICARE, SELFPAY ==
[2024-06-02] VITALS (13 sets, daily range): BP systolic 158–188; BP diastolic 77–102; PULSE 61–74; RESP 16–20; TEMP 36.9; O2SAT 95–98; BMI 26.2
--- NOTE | 2024-06-02 07:04 | IR_ITS ---
APPROVED REPORT Patient Location: Outpatient Ear Pull Machine Operator: JIM Urias RT (R) PROCEDURES Selective coronary angiogram Drug-eluting stent deployment to the proximal mid and distal dominant right coronary artery INDICATION Coronary artery disease, Abnormal CCTA, Angina pectoris, Informed consent was obtained prior to the procedure. COMPLICATIONS none Estimated Blood Loss: less than 10ml TECHNIQUE One percent lidocaine used to anesthetize the right anterior aspect of the wrist. The right radial artery was accessed via the Seldinger technique. A 6 Armenian sheath was placed in the right radial artery. 2.5 mg of Verapamil, 800 mcg of nitroglycerin, 1mg Lidocaine and 5000 U Heparin were given through the arterial sheath. The papa catheter was also used to perform selective coronary angiogram. At the end of the diagnostic procedure therapeutic heparin was administered giving a therapeutic ACT and the guide catheter was placed in the right coronary followed by Choice PT extra-support wire placed distally. A 3 mm x 38 mm Raj[place] frontier stent was deployed at 20 mily in the proximal to mid right coronary reducing the stenosis. Distally there was an edge dissection therefore an additional 3 mm x 15 mm [place] frontier stent was then placed distal to the for stent yet still overlapping and deployed at 14 mily. The balloon was brought back between the 2 stents and deployed at 20 mily to mesh the 2 stents. Following this there continue to be dampening upon the JR4 catheter in the proximal right coronary artery. There was significant haziness and a lesion therefore an additional 3 mm x 22 mm [place] frontier stent was placed proximal to the for stent yet still overlapping the for stent and deployed at 20 mily. DERICK-3 flow was present before and after the procedure. After achieving excellent angiographic results apparatus was removed the sheath was removed and hemostasis was achieved using TR banding patient was transferred to the postop holding in stable condition ANGIOGRAPHIC RESULTS The left main artery Normal The left anterior descending artery Has proximal and mid vessel 10% luminal irregularities The circumflex artery Nondominant yet still large and gives rise to a large first obtuse marginal artery which has a proximal calcified 30 to 40% stenosis The right coronary artery Is dominant and has a proximal concentric 70% stenosis followed by a long concentric 40 to 50% mid vessel stenosis. Distally there is 30 to 40% concentric stenosis The KHAN ventriculogram reveals Not performed The left ventricular end-diastolic pressure Not measured IMPRESSION Severe disease in the right coronary artery as described above with successful stenting reducing the lesions to 0% with 3 contiguous drug-eluting stents Moderate disease in the first obtuse marginal artery PLAN 1. Dual antiplatelet therapy 2. LDL less than 55 to be achieved with high intensity statin 3. Avoidance of tobacco products 4. Cardiac rehabilitation 5. Risk factor modification Electronically signed by : Miguel Pool MD 06/02/2024 10:43:58
[2024-06-02 08:54] LABS: Chloride 101 mmol/L (98-107); Sodium 138 mmol/L (136-145)
[2024-06-02 08:55] LABS: Potassium 3.5 mmoL/L (3.5-5.1)
[2024-06-02 08:58] LABS: Anion Gap 10.5 mEq/L (5-15); Blood Urea Nitrogen 14 mg/dl (7-17); Carbon Dioxide 30 mmol/L (22.0-30.0); Creatinine Clearance Estimated 63 mL/min (50-200); Estimated Glomerular Filt Rate 100 ml/min (>60); GFR (African American) 121 ML/MIN (>60); Glucose 119 mg/dl (74-100)
[2024-06-02 08:59] LABS: Basophils # 0.1 K/mm3 (0-0.2); Basophils % 0.9 % (0.1-2.0); Eosinophils # 0.2 K/mm3 (0.0-0.4); Eosinophils % 2.3 % (0.1-12.0); Hematocrit 42.9 % (37.0-47.0); Lymphocytes # 2.5 K/mm3 (0.7-4.5); Lymphocytes % 28.8 % (10-50); Mean Corpuscular HGB Conc 32.7 g/dL (31.8-35.4); Mean Corpuscular Hemoglobin 32.2 pg (27.0-31.2); Mean Corpuscular Volume 98.6 fl (81-99); Mean Platelet Volume 8.5 fl (7.4-10.4); Monocytes # 0.4 K/mm3 (0.1-1.0); Monocytes % 4.3 % (1.7-9.3); Neutrophils # 5.4 K/mm3 (1.8-7.8); Neutrophils % 63.6 % (37.0-80.0); Platelet Count 232 K/mm3 (142-424); Red Blood Count 4.35 M/mm3 (4.20-5.40); Red Cell Distribution Width 14.7 % (11.5-17.5); White Blood Count 8.6 K/mm3 (4.8-10.8)
[2024-06-02] MEDS: VERAPAMIL 2.5MG/ML 2ML VIAL 2.5 MG IV (09:53)
[2024-06-02] MEDS: HEPARIN 1,000 UNITS/ML 10ML VIAL (CATH LAB) 10000 UNIT IV (09:53)
[2024-06-02] MEDS: diphenhydrAMINE 50MG/ML VIAL 50 MG IV (09:53)
[2024-06-02] MEDS: LIDOCAINE 1% 10ML MDV 20 ML IJ (09:53)
[2024-06-02] MEDS: MIDAZOLAM HCL 1MG/1ML 5ML VIAL 1 MG IV (09:54)
[2024-06-02] MEDS: FENTANYL 100MCG/2ML VIAL 50 MCG IV (09:54)
[2024-06-02] MEDS: HEPARIN 1,000 UNITS/500ML NS (CATH LAB) 3000 UNIT IV (09:54)
[2024-06-02] MEDS: 0.9 % SODIUM CHLORIDE 500 ML 25 ML IV (09:54)
[2024-06-02] MEDS: PRASUGREL 10MG TAB 60 MG PO (10:48)
[2024-06-02] MEDS: ACETAMINOPHEN 325MG TAB 650 MG PO (11:16)
[2024-06-02 13:33] LABS: POC Glucose,Bedside 89 (70-110)
[2024-06-02] MEDS: IOPAMIDOL-370 (76%);100ML BOTTLE 70 ML IV (15:41)
[2024-06-02 15:45] LABS: CATHL Activated Clotting Time 250 SEC (74-125)
== END 2024-06-02 13:29 | disposition home or self-care (01) ==
PROVIDERS: PCP Nurse Practitioner; Visit Provider Internal Medicine
DX: R94.39 Abnormal result of other cardiovascular function study (principal); R07.89 Other chest pain; R53.83 Other fatigue; R06.02 Shortness of breath; I25.118 Atherosclerotic heart disease of native coronary artery with other forms of angina pectoris; F17.210 Nicotine dependence, cigarettes, uncomplicated; E11.9 Type 2 diabetes mellitus without complications; Z79.4 Long term (current) use of insulin; Z79.899 Other long term (current) drug therapy; E78.5 Hyperlipidemia, unspecified
CPT/HCPCS: 80048; 82962; 85025; 85347; 92928; 93454; 99152; C1725; C1769; C1874; C9600; J1200; J1644; J2250; J3010; Q9967

== ENCOUNTER 2024-06-04 15:36 | Outpatient (CLI) | payer MEDICARE, SELFPAY ==
[2024-06-04 17:39] LABS: Basophils # 0.1 K/mm3 (0-0.2); Basophils % 0.8 % (0.1-2.0); Eosinophils # 0.3 K/mm3 (0.0-0.4); Eosinophils % 2.7 % (0.1-12.0); Hematocrit 39.9 % (37.0-47.0); Hemoglobin 13.8 g/dL (12.2-16.2); Lymphocytes # 2.8 K/mm3 (0.7-4.5); Lymphocytes % 29.8 % (10-50); Mean Corpuscular HGB Conc 34.6 g/dL (31.8-35.4); Mean Corpuscular Hemoglobin 32.3 pg (27.0-31.2); Mean Corpuscular Volume 93.5 fl (81-99); Mean Platelet Volume 7.9 fl (7.4-10.4); Monocytes # 0.5 K/mm3 (0.1-1.0); Monocytes % 5.4 % (1.7-9.3); Neutrophils # 5.8 K/mm3 (1.8-7.8); Neutrophils % 61.3 % (37.0-80.0); Platelet Count 257 K/mm3 (142-424); Red Blood Count 4.26 M/mm3 (4.20-5.40); Red Cell Distribution Width 14.7 % (11.5-17.5); White Blood Count 9.4 K/mm3 (4.8-10.8)
[2024-06-04 17:52] LABS: Chloride 99 mmol/L (98-107)
[2024-06-04 17:53] LABS: Potassium 3.7 mmoL/L (3.5-5.1); Sodium 136 mmol/L (136-145)
[2024-06-04 17:56] LABS: Anion Gap 12.7 mEq/L (5-15); Blood Urea Nitrogen 13 mg/dl (7-17); Calcium 9.9 mg/dl (8.4-10.2); Carbon Dioxide 28 mmol/L (22.0-30.0); Estimated Glomerular Filt Rate 72 ml/min (>60); GFR (African American) 87 ML/MIN (>60); Glucose 252 mg/dl (74-100)
== END 2024-06-04 23:59 | disposition home or self-care (01) ==
LOC: LAB 15:38
PROVIDERS: PCP Nurse Practitioner; Visit Provider Internal Medicine
DX: I25.10 Atherosclerotic heart disease of native coronary artery without angina pectoris (principal)
CPT/HCPCS: 36415; 80048; 85025

== ENCOUNTER 2024-07-01 07:13 | Outpatient (CLI) | payer MEDICARE, SELFPAY ==
--- NOTE | 2024-07-01 07:13 | CT_ITS ---
PROCEDURE INFORMATION: Exam: CT Chest Without Contrast; Diagnostic Exam date and time: 07/01/2024 7:13 AM Age: 68 years old Clinical indication: Dyspnea; Additional info: Dyspnea, smoker TECHNIQUE: Imaging protocol: Diagnostic computed tomography of the chest without contrast. Radiation optimization: All CT scans at this facility use at least one of these dose optimization techniques: automated exposure control; mA and/or kV adjustment per patient size (includes targeted exams where dose is matched to clinical indication); or iterative reconstruction. COMPARISON: CR XR CHEST 2V 10/29/2023 2:51 PM FINDINGS: Lungs: Evidence of COPD with mild emphysematous changes. Few small noncalcified pulmonary nodules measuring up to 4 mm as well as scattered calcified granulomas. No infiltrates or overt CHF. Pleural spaces: Unremarkable. No pneumothorax. No pleural effusion. Heart: Unremarkable. No cardiomegaly. No pericardial effusion. Coronary arteries: There are extensive calcification of coronary arteries. Lymph nodes: Unremarkable. No enlarged lymph nodes. Vasculature: There are diffuse atherosclerotic changes throughout the thoracic aorta. There is no aortic aneurysm. Bones/joints: Degenerate endplate osteophytes midthoracic spine. No acute bony abnormalities. Soft tissues: Unremarkable. IMPRESSION: 1. COPD with mild emphysematous changes. 2. Few pulmonary nodules measuring up to 4 mm. Follow-up as clinically indicated. 3. Diffuse calcification of coronary arteries. For patients at low risk (minimal or absent history of smoking and of other known risk factors), no routine follow-up is indicated. For patients at high risk (history of smoking or of other known risk factors), consider optional CT Chest at 12 months. (Reference: Micheal) COMMENTS: The presence of pulmonary emphysema on CT is an independent risk factor for lung cancer. In the absence of a history or active diagnosis of lung cancer, it is recommended that this patient with emphysema be evaluated for enrollment in a low dose CT lung cancer screening program. REFERENCES: Micheal Boyce, et al. Guidelines for Management of Incidental Pulmonary Nodules Detected on CT Images: From the Fleischner Society 2017. Radiology. 2017;284(1):228-243.
[2024-07-01] MEDS: ALBUTEROL 0.083% 2.5 MG/3 ML NEB IH (08:19)
== END 2024-07-01 23:59 | disposition home or self-care (01) ==
LOC: RAD 07:13
PROVIDERS: PCP Nurse Practitioner; Visit Provider Physician Assistant
DX: J44.9 Chronic obstructive pulmonary disease, unspecified (principal); R06.09 Other forms of dyspnea; F17.200 Nicotine dependence, unspecified, uncomplicated; R94.30 Abnormal result of cardiovascular function study, unspecified
CPT/HCPCS: 71250; 94060; 94726; 94729; J7613

== ENCOUNTER 2025-03-29 14:33 | Emergency (ER) | payer MEDICARE, SELFPAY ==
[2025-03-29] VITALS (7 sets, daily range): BP systolic 122–180; BP diastolic 60–76; PULSE 67–84; RESP 18; TEMP 36.6–36.9; O2SAT 93–98; BMI 24.0
--- NOTE | 2025-03-29 14:44 | CT_ITS ---
FINAL REPORT TECHNIQUE: Thin section axial images are obtained through the abdomen and pelvis after intravenous contrast. Reconstruction images were obtained from the axial data. Exam was performed using dose reduction techniques. This study was performed with techniques to keep radiation doses as low as reasonably achievable (ALARA). Individualized dose reduction techniques using automated exposure control or adjustment of mA and/or kV according to the patient's size were employed. CLINICAL HISTORY: RLQ abdominal pain, concern for appendicitis COMPARISON: None FINDINGS: LUNG BASES: Lung bases are clear. Heart size is normal. LIVER: Homogeneous. No focal lesion. GALLBLADDER/BILIARY SYSTEM: The gallbladder has been surgically resected. No biliary dilatation. SPLEEN: Unremarkable. PANCREAS: Unremarkable. ADRENALS: Unremarkable. KIDNEYS/URETERS/BLADDER: There is a probable tiny nonobstructing stone in the left collecting system. No hydronephrosis or renal mass is identified. Unremarkable urinary bladder. GI TRACT: No small bowel obstruction or dilatation. Normal appendix. There is mild wall thickening of the proximal colon, as well as air-fluid levels in distal small bowel loops, that can be seen with enterocolitis. PELVIC ORGANS: Unremarkable for age. LYMPH NODES/RETROPERITONEUM/MESENTERY: No lymphadenopathy. No abdominal aortic aneurysm. ABDOMINAL WALL: The abdominal wall is intact. FREE FLUID: No ascites. BONES: No acute osseous abnormality. IMPRESSION: Mild wall thickening of the proximal colon, with fluid/fluid levels in the distal small bowel loops, the appearance is suggestive of enterocolitis. The appendix is normal in appearance. Reviewed, Interpreted and Dictated by [place] Brannon MD Transcribed by Yamini Hughes Authenticated and [facility]
--- NOTE | 2025-03-29 14:46 | [facility].EDGENADL ---
Discharge Plan Disposition Chief Complaint: Abdominal Pain Prescriptions Prescriptions: No Action trazodone 100 mg tablet 100 mg PO HS Patient Comments: TAKE 1 TABLET BY MOUTH ONCE DAILY insulin glargine [Lantus Solostar U-100 Insulin] 100 unit/mL (3 mL) insulin pen 100 unit SQ DAILY aspirin [Adult Low Dose Aspirin] 81 mg tablet,delayed release (DR/EC) 81 mg PO DAILY Qty: 30 2RF metformin 1,000 mg tablet PO isosorbide mononitrate 60 mg tablet extended release 24 hr 60 mg PO DAILY Qty: 30 2RF nitroglycerin [Nitrostat] 0.4 mg tablet, sublingual 0.4 mg sublingual Q5M Qty: 30 2RF Rx Instructions: do not exceed 3 doses per episode atorvastatin 40 mg tablet 40 mg PO DAILY venlafaxine 75 mg capsule,extended release 24hr 75 mg PO DAILY Patient Comments: TAKE 1 CAPSULE BY MOUTH ONCE DAILY WITH FOOD hydrocodone-acetaminophen 7.5-325 mg tablet 1 tab PO Patient Comments: TAKE 1 TABLET BY MOUTH EVERY 6 HOURS NEEDED FOR 14 DAYS albuterol sulfate 90 mcg/actuation HFA aerosol inhaler 2 puff inhalation Q4H PRN (Reason: SOA) Qty: 8.5 2RF carvedilol [Coreg] 6.25 mg tablet 6.25 mg PO BID 90 Days Qty: 180 3RF Rx Instructions: must administer with a meal/food prasugrel HCl [Effient] 10 mg tablet 10 mg PO DAILY Qty: 90 3RF losartan 100 mg tablet 100 mg PO DAILY Qty: 90 3RF Stiolto Respimat 2.5-2.5 mcg/actuation mist See Rx Instructions .ROUTE .COMPLEX Qty: 12 3RF Dose Instruction: INHALE 2 PUFFS EVERY DAY Rx Instructions: INHALE 2 PUFFS EVERY DAY varenicline tartrate 0.5 mg Tablet 0.5 mg PO DAILY Referrals Follow up/Referrals: Ofelia (ED),MARGARET Carroll [Primary Care Provider, Emergency Medicine] - See instructions Instructions Patient Instructions: DI for Acute Abdominal Pain Print Language Print Language: Turkish Discharge ED Provider: Andi Ca General Adult HPI <Andi Ca MD - Last Filed: 03/29/25 15:53> General Chief complaint: Abdominal Pain Stated complaint: Sent by; Kyle appendicitis Time Seen by Provider: 03/29/25 14:36 Mode of Arrival: Ambulatory Source of Information: Patient Limitations: No Limitations History of Present Illness HPI narrative: Nicole Fields is a 69-year-old female with a past medical history of hypertension, coronary artery disease status post stents on daily baby aspirin, diabetes mellitus who presents to the emergency department for complaints of right lower quadrant abdominal pain. Patient states over the last 2 days, she has had pain in her right lower quadrant that radiates to her right flank/back. She states that the pain kept her up all night last night. She states that currently, the pain is not there unless you press on her abdomen. She states that she had frequent urination last night and thought it was due to her blood sugar but she checked it and it was normal. She reports nausea and nonbilious nonbloody vomiting this morning. She denies any diarrhea or constipation. She denies any fevers. She states that she has had a hysterectomy and cholecystectomy but still has her appendix. Related Data Home Medications ?Medication ?Instructions ?Recorded ?Confirmed insulin glargine 100 unit/mL (3 100 unit SQ DAILY 04/22/24 03/15/25 mL) subcutaneous pen (Lantus Solostar U-100 Insulin) trazodone 100 mg tablet 100 mg PO HS 04/22/24 03/15/25 varenicline tartrate 0.5 mg tablet 0.5 mg PO DAILY 05/05/24 03/15/25 hydrocodone 7.5 mg-acetaminophen 1 tab PO 09/15/24 03/15/25 325 mg tablet metformin 1,000 mg tablet mg PO 11/15/24 03/15/25 atorvastatin 40 mg tablet 40 mg PO DAILY 02/17/25 03/15/25 venlafaxine 75 mg capsule,extended 75 mg PO DAILY 02/17/25 03/29/25 release 24 hr Previous Rx's ?Medication ?Instructions ?Recorded aspirin 81 mg tablet,delayed 81 mg PO DAILY #30 tabs 05/24/24 release (Adult Low Dose Aspirin) nitroglycerin 0.4 mg sublingual 0.4 mg sublingual Q5M #30 tabs 10/04/24 tablet (Nitrostat) carvedilol 6.25 mg tablet (Coreg) 6.25 mg PO BID 90 days #180 tabs 10/19/24 prasugrel HCl 10 mg tablet 10 mg PO DAILY #90 tabs 10/19/24 (Effient) losartan 100 mg tablet 100 mg PO DAILY #90 tabs 10/20/24 albuterol sulfate 90 mcg/actuation 2 puff inhalation Q4H PRN SOA #8.5 11/01/24 aerosol inhaler grams tiotropium 2.5 mcg-olodaterol 2.5 See Rx Instructions .Route 01/21/25 mcg/actuation mist for inhalation .COMPLEX #12 grams (Stiolto Respimat) isosorbide mononitrate 60 mg 60 mg PO DAILY #30 tabs 03/15/25 tablet,extended release 24 hr Allergies Allergy/AdvReac Type Severity Reaction Status Date / Time acetaminophen (From Percocet) AdvReac Verified 03/15/25 10:39 oxycodone (From Percocet) AdvReac Verified 03/15/25 10:39 PFS <Andi Ca MD - Last Filed: 03/29/25 15:53> PFS Disclaimer: The information contained in this section may have been updated after the patient was seen, as this information can be updated by other users. Medical History Tobacco abuse Tobacco abuse counseling Pulmonary emphysema Multiple lung nodules on CT Smoking greater than 30 pack years COPD (chronic obstructive pulmonary disease) Smoker Angina pectoris CAD in [place] artery Chest pain Diabetes mellitus Fatigue Dyspnea Typical angina Cancer Urinary tract infection Diabetes mellitus, type 2 Hyperlipidemia Hypertension Surgical History History of back surgery History of bladder surgery History of hysterectomy History of cholecystectomy Family History (Updated 03/29/25 @ 14:47 by Teresa Reese RN) Other No significant family history Social History Smoking Status: Current every day smoker tobacco type: cigarettes second hand exposure: No alcohol intake: never current occupational status: other Travel in the last 8 weeks?: None Have you lived/traveled outside [place] in past 30 days?: No Contact w/someone who lives/traveled outside US past 30 days?: No Exposure to someone with infectious disease in past 14 days?: No Do you have a fever (greater than 100.4 F or 38 C)?: No Have you tested positive for COVID-19?: No Exposed to someone with COVID-19 in past 14 days?: No Do you have a sore throat?: No Do you have a cough?: No Do you have any weakness?: No Do you have any diarrhea?: No Are you experiencing any unusual bleeding?: No Do you have any muscle aches/pain?: No Do you have any abdominal pain?: No Are you experiencing loss of taste or smell?: No Other Medical History Have you received the Flu Vaccine for this season: No Have you received the Pneumonia Vaccine: Yes <Andi Ca MD - Last Filed: 03/29/25 15:53> ROS Obtained: Yes Systems reviewed as appropriate & no additional complaints except as documented Physical Exam <Andi Ca MD - Last Filed: 03/29/25 15:53> General General appearance: alert and in no apparent distress Head Head exam: atraumatic Eye Eye exam: Present normal appearance ENT ENT exam: Present normal external ear exam Neck Neck exam: Present full ROM Chest Chest inspection: Present symmetric chest wall rise Respiratory Respiratory exam: Present normal lung sounds bilaterally; Absent respiratory distress, wheezes or stridor Cardiovascular Cardiovascular exam: Present regular rate and normal rhythm Abdominal Exam Abdominal exam: Present soft, tenderness (Right lower quadrant and right flank) and guarding (Right lower quadrant); Absent distention Extremities Exam Extremities exam: Present normal inspection Back Exam Back exam: Present normal inspection Neurological Exam Neurological exam: Present alert and oriented X3 Psychiatric Psychiatric exam: Present normal affect Skin Skin exam: Present warm and dry Medical Decision Making <Andi Ca MD - Last Filed: 03/29/25 15:53> Medical Records Screening: Per USPSTF and CDC recommendations, given the prevalence of disease in our region, it is our hospital?s policy to screen for HIV and viral Hepatitis for all patients aged 18 and over and those with ongoing risk factors. Bi Inquiry Pt receiving controlled substance: No Vital Signs: 03/29/25 14:45 03/29/25 14:45 03/29/25 15:01 Temperature 98 F 98 F Temperature Source Oral Pulse Rate 84 70 Pulse Rate [Right] 84 Respiratory Rate 18 18 Blood Pressure 155/76 H 122/60 Blood Pressure [Right Arm] 155/76 H Blood Pressure Mean Blood Pressure Mean [Right Arm] 102 02 Sat by Pulse Oximetry 98 98 96 Oxygen Delivery Method Room Air 03/29/25 15:30 03/29/25 16:00 03/29/25 16:25 Temperature Temperature Source Pulse Rate 69 67 73 Pulse Rate [Right] Respiratory Rate Blood Pressure 131/68 180/74 H 145/69 H Blood Pressure [Right Arm] Blood Pressure Mean 118 Blood Pressure Mean [Right Arm] 02 Sat by Pulse Oximetry 98 93 L 96 Oxygen Delivery Method 03/29/25 16:31 Temperature Temperature Source Pulse Rate 70 Pulse Rate [Right] Respiratory Rate Blood Pressure 153/76 H Blood Pressure [Right Arm] Blood Pressure Mean Blood Pressure Mean [Right Arm] 02 Sat by Pulse Oximetry 96 Oxygen Delivery Method Lab Data Lab Results 03/29/25 14:45: WBC 13.3 H, RBC 4.55, Hgb 13.9, Hct 41.5, MCV 91.2, MCH 30.5, MCHC 33.5, RDW 15.0, Plt Count 270, MPV 9.8, Neut % (Auto) 67.4, Lymph % (Auto) 25.4, [place] % (Auto) 6.1, Eos % (Auto) 0.6, Baso % (Auto) 0.3, Neut # (Auto) 9.0 H, Lymph # (Auto) 3.4, Weak[place] # (Auto) 0.8, Eos # (Auto) 0.1, Baso # (Auto) 0.0, ESR 17, Sodium 137, Potassium 4.3, Chloride 99, Carbon Dioxide 28, Anion Gap 14.3, BUN 13, Creatinine 1.00, Estimated Creat Clear 55, Estimated GFR 55 L, Est GFR ( Amer) 67, Glucose 125 H, Calcium 10.3 H, Total Bilirubin 0.5, AST 31, ALT 27, Alkaline Phosphatase 80, C-Reactive Protein 2.1, Total Protein 8.7 H, Albumin 4.9, Globulin 3.8 H, Albumin/Globulin Ratio 1.3, Lipase 33 03/29/25 16:22: Urine Color Yellow, Urine Appearance Clear, Urine pH 6.0, Ur Specific [place] <= 1.005, Urine Protein Negative, Urine Glucose (UA) Negative, Urine Ketones Negative, Urine Blood Trace-i, Urine Nitrate Negative, Urine Bilirubin Negative, Urine Urobilinogen 0.2, Ur Leukocyte Esterase Negative, Urine RBC Occasional, Urine WBC None, Ur Squamous Epith Cells None, Urine Bacteria Trace 03/29/25 14:45 03/29/25 14:45 Orders (Tests/Meds): ED MEDICATIONS Generic Name Dose Route Start Last Admin Trade Name Freq PRN Reason Stop Dose Admin Morphine Sulfate 2 mg 03/29/25 14:44 Morphine 2mg/Ml Syringe IV 04/28/25 14:43 ONCE PRN Breakthru Severe Pain (7-10) Discontinued Medications Generic Name Dose Route Start Last Admin Trade Name Freq PRN Reason Stop Dose Admin Lactated Ringer's 500 mls @ 999 mls/hr 03/29/25 14:45 03/29/25 15:10 Lactated Ringer's 500ml IV 03/29/25 15:15 999 mls/hr .Q31M ONE Administration Iopamidol 75 ml 03/29/25 15:17 03/29/25 15:17 Iopamidol-370 (76%);100ml Bottle IV 03/29/25 15:18 75 ml ONCE ONE Administration Ondansetron HCl 4 mg 03/29/25 14:44 03/29/25 15:10 Ondansetron 4mg/2ml Vial IV 03/29/25 14:45 4 mg ONCE ONE Administration Sodium Chloride 10 ml 03/29/25 15:17 03/29/25 15:17 Sodium Chloride 0.9% 10ml Syr (Rad Only) IV 03/29/25 15:18 10 ml ONCE ONE Administration ORDERS Category Date Time Status CT abdomen pelvis w con Stat Cat Scan 03/29/25 14:44 Completed CBC w/Auto Diff [Complete Blood Count Auto Diff] Stat Lab 03/29/25 14:45 Completed CMP [Comprehensive Metabolic Panel] Stat Lab 03/29/25 14:45 Completed CRP [C-Reactive Protein] Stat Lab 03/29/25 14:45 Completed ESR [Erythrocyte Sedimentation Rate] Stat Lab 03/29/25 14:45 Completed Lipase Stat Lab 03/29/25 14:45 Completed UA [Urinalysis and Microscopic] Stat Lab 03/29/25 16:22 Completed Medical Decision Narrative: Nicole Fields is a 69-year-old female with a past medical history of hypertension, coronary artery disease status post stents on daily baby aspirin, diabetes mellitus who presents to the emergency department for complaints of right lower quadrant abdominal pain. Patient states over the last 2 days, she has had pain in her right lower quadrant that radiates to her right flank/back. She states that the pain kept her up all night last night. She states that currently, the pain is not there unless you press on her abdomen. She states that she had frequent urination last night and thought it was due to her blood sugar but she checked it and it was normal. She reports nausea and nonbilious nonbloody vomiting this morning. She denies any diarrhea or constipation. She denies any fevers, vaginal bleeding or dysuria. She states that she has had a hysterectomy and cholecystectomy but still has her appendix. On arrival, patient is hemodynamically stable, no acute respiratory distress, afebrile, breathing carefully on room air with appropriate oxygen saturation. Physical exam, as stated above, revealed an overall well-appearing female in no distress. She has localized tenderness of the right lower quadrant and right flank area with guarding in the right lower quadrant. Abdomen is not peritonitic and otherwise soft. Cardiopulmonary exam is unremarkable. She appears well-hydrated. Differential diagnosis includes, but is not limited to: Acute appendicitis, viral gastritis, mesenteric adenitis, colitis, acute appendicitis, urinary tract infection, low concern for ovarian torsion given laterality of patient's symptoms to involve the flank. The most morbid conditions were considered and workup was based on these. Workup in the emergency room included: CT abdomen pelvis with IV contrast, CBC, CMP, CRP, lipase, urinalysis, ESR. Patient was treated symptomatically with 500 cc lactated ringer, 4 mg IV Zofran for nausea. 2 mg as needed IV Zofran was ordered for pain. Patient denies any pain currently. She states that she has been taking oxycodone and has tolerated this well At this time, patient's workup is pending. Patient's care transferred to the oncoming physician, Dr. Larson. <Ean Larson, - Last Filed: 03/29/25 17:24> Bi Pat was queried for this patient: No Vital Signs: 03/29/25 14:45 03/29/25 14:45 03/29/25 15:01 Temperature 98 F 98 F Temperature Source Oral Pulse Rate 84 70 Pulse Rate [Right] 84 Respiratory Rate 18 18 Blood Pressure 155/76 H 122/60 Blood Pressure [Right Arm] 155/76 H Blood Pressure Mean Blood Pressure Mean [Right Arm] 102 02 Sat by Pulse Oximetry 98 98 96 Oxygen Delivery Method Room Air 03/29/25 15:30 03/29/25 16:00 03/29/25 16:25 Temperature Temperature Source Pulse Rate 69 67 73 Pulse Rate [Right] Respiratory Rate Blood Pressure 131/68 180/74 H 145/69 H Blood Pressure [Right Arm] Blood Pressure Mean 118 Blood Pressure Mean [Right Arm] 02 Sat by Pulse Oximetry 98 93 L 96 Oxygen Delivery Method 03/29/25 16:31 Temperature Temperature Source Pulse Rate 70 Pulse Rate [Right] Respiratory Rate Blood Pressure 153/76 H Blood Pressure [Right Arm] Blood Pressure Mean Blood Pressure Mean [Right Arm] 02 Sat by Pulse Oximetry 96 Oxygen Delivery Method Lab Data Lab Results 03/29/25 14:45: WBC 13.3 H, RBC 4.55, Hgb 13.9, Hct 41.5, MCV 91.2, MCH 30.5, MCHC 33.5, RDW 15.0, Plt Count 270, MPV 9.8, Neut % (Auto) 67.4, Lymph % (Auto) 25.4, [place] % (Auto) 6.1, Eos % (Auto) 0.6, Baso % (Auto) 0.3, Neut # (Auto) 9.0 H, Lymph # (Auto) 3.4, [place] # (Auto) 0.8, Eos # (Auto) 0.1, Baso # (Auto) 0.0, ESR 17, Sodium 137, Potassium 4.3, Chloride 99, Carbon Dioxide 28, Anion Gap 14.3, BUN 13, Creatinine 1.00, Estimated Creat Clear 55, Estimated GFR 55 L, Est GFR ( Amer) 67, Glucose 125 H, Calcium 10.3 H, Total Bilirubin 0.5, AST 31, ALT 27, Alkaline Phosphatase 80, C-Reactive Protein 2.1, Total Protein 8.7 H, Albumin 4.9, Globulin 3.8 H, Albumin/Globulin Ratio 1.3, Lipase 33 03/29/25 16:22: Urine Color Yellow, Urine Appearance Clear, Urine pH 6.0, Ur Specific [place] <= 1.005, Urine Protein Negative, Urine Glucose (UA) Negative, Urine Ketones Negative, Urine Blood Trace-i, Urine Nitrate Negative, Urine Bilirubin Negative, Urine Urobilinogen 0.2, Ur Leukocyte Esterase Negative, Urine RBC Occasional, Urine WBC None, Ur Squamous Epith Cells None, Urine Bacteria Trace Orders (Tests/Meds): ED MEDICATIONS Generic Name Dose Route Start Last Admin Trade Name Freq PRN Reason Stop Dose Admin Morphine Sulfate 2 mg 03/29/25 14:44 Morphine 2mg/Ml Syringe IV 04/28/25 14:43 ONCE PRN Breakthru Severe Pain (7-10) Discontinued Medications Generic Name Dose Route Start Last Admin Trade Name Freq PRN Reason Stop Dose Admin Lactated Ringer's 500 mls @ 999 mls/hr 03/29/25 14:45 03/29/25 15:10 Lactated Ringer's 500ml IV 03/29/25 15:15 999 mls/hr .Q31M ONE Administration Iopamidol 75 ml 03/29/25 15:17 03/29/25 15:17 Iopamidol-370 (76%);100ml Bottle IV 03/29/25 15:18 75 ml ONCE ONE Administration Ondansetron HCl 4 mg 03/29/25 14:44 03/29/25 15:10 Ondansetron 4mg/2ml Vial IV 03/29/25 14:45 4 mg ONCE ONE Administration Sodium Chloride 10 ml 03/29/25 15:17 03/29/25 15:17 Sodium Chloride 0.9% 10ml Syr (Rad Only) IV 03/29/25 15:18 10 ml ONCE ONE Administration ORDERS Category Date Time Status CT abdomen pelvis w con Stat Cat Scan 03/29/25 14:44 Completed CBC w/Auto Diff [Complete Blood Count Auto Diff] Stat Lab 03/29/25 14:45 Completed CMP [Comprehensive Metabolic Panel] Stat Lab 03/29/25 14:45 Completed CRP [C-Reactive Protein] Stat Lab 03/29/25 14:45 Completed ESR [Erythrocyte Sedimentation Rate] Stat Lab 03/29/25 14:45 Completed Lipase Stat Lab 03/29/25 14:45 Completed UA [Urinalysis and Microscopic] Stat Lab 03/29/25 16:22 Completed Medical Decision Narrative: Nicole Fields is a 69-year-old female with a past medical history of hypertension, coronary artery disease status post stents on daily baby aspirin, diabetes mellitus who presents to the emergency department for complaints of right lower quadrant abdominal pain. Patient states over the last 2 days, she has had pain in her right lower quadrant that radiates to her right flank/back. She states that the pain kept her up all night last night. She states that currently, the pain is not there unless you press on her abdomen. She states that she had frequent urination last night and thought it was due to her blood sugar but she checked it and it was normal. She reports nausea and nonbilious nonbloody vomiting this morning. She denies any diarrhea or constipation. She denies any fevers, vaginal bleeding or dysuria. She states that she has had a hysterectomy and cholecystectomy but still has her appendix. On arrival, patient is hemodynamically stable, no acute respiratory distress, afebrile, breathing carefully on room air with appropriate oxygen saturation. Physical exam, as stated above, revealed an overall well-appearing female in no distress. She has localized tenderness of the right lower quadrant and right flank area with guarding in the right lower quadrant. Abdomen is not peritonitic and otherwise soft. Cardiopulmonary exam is unremarkable. She appears well-hydrated. Differential diagnosis includes, but is not limited to: Acute appendicitis, viral gastritis, mesenteric adenitis, colitis, acute appendicitis, urinary tract infection, low concern for ovarian torsion given laterality of patient's symptoms to involve the flank. The most morbid conditions were considered and workup was based on these. Workup in the emergency room included: CT abdomen pelvis with IV contrast, CBC, CMP, CRP, lipase, urinalysis, ESR. Patient was treated symptomatically with 500 cc lactated ringer, 4 mg IV Zofran for nausea. 2 mg as needed IV Zofran was ordered for pain. Patient denies any pain currently. She states that she has been taking oxycodone and has tolerated this well At this time, patient's workup is pending. Patient's care transferred to the oncoming physician, Dr. Larson. Ean Larson, DO: I assumed care of this patient from Dr. Ca pending CT scan of the abdomen and pelvis. Patient remained stable throughout her duration of stay in the emergency department and did not necessitate any further interventions under my care. CT scan did result and showed findings consistent with enterocolitis. We will have the patient take Tylenol and Motrin at home for control of symptoms and return to the emergency department if she becomes unable to tolerate oral intake. Return precautions given. She knowledged understanding. At this time all questions been answered and all parties are agreeable with the decision of discharge home. Critical Care <Andi Ca MD - Last Filed: 03/29/25 15:53> Critical Care Time Critical Care Time: No
--- OUTSIDE RECORDS SUMMARY | 2025-03-29 14:53 | XMS_ITS | Clinical Summary ---
[facility] Address [address] [place] [address] Care Team Providers Care Demand Planning Analyst Name Role Phone Provider, No Known Primary Care Provider Unavail able Allergies Active Allergy Reactions Criticality Noted Date Comments Fluticasone-Salmeterol Cough 11/28/2016 Levofloxacin Anaphylaxis High 11/28/2016 Medications PredniSONE (DELTASONE) 10 MG (21) tablet packIndications :Acute URI Take by mouth Take As Directed. 21 tablet 11/28/2016 Active azithromycin (ZITHROMAX) 250 MG tabletIndicatio ns:Acute URI Take 2 tablets the first day, then 1 tablet daily for 4 days. 6 tablet 11/28/2016 Active Social History Tobacco Use Types Packs/Day Years Used Date Smoking Tobacco: Never Abuse Screen Answer Date Recorded Unsafe at Home or Work/School Not on file Feels Threatened by Someone? Not on file 05/2023 Does Anyone Keep You from Co ntacting Others or Doint Things Outside the Home? Not on file 06/09/2023 Physical Sign of Abuse Present Not on file 1 Housing Stability Answer Date Recorded Current Living Arrangements Not on file 05/2023 Potentially Unsafe Housing Conditions Not on saad e 06/09/2023 Family and Community Support Answer Lucio e Recorded Help with Day-to-Day Activities Not on file 06/09/2023 Lonely or Isolated Not on file 06/09/2023 Employment Answer Date Recorded Do you want help finding or keeping work or a mila b? Not on file 06/09/2023 Disabilities Answer Date Recorded Concentrating, Remembering, or Making Decisions Difficulty Not on file 06/09/2023 Doing Errands Independently Difficulty Not on fi le 06/09/2023 Education Answer Date Recorded Help with school or training? Not on file Preferred Language Not on file 06/09/2023 Comments No Sex and Gender Information Value Date Recorded Sex Assigned at Not on file Legal Sex Female 11:32 AM EDT Gender Identity Not on file Sexual Orientation Not on file Last Filed Vital Signs Vital Sign Reading Time Taken Comments Blood Pressure 101/68 11/28/2016 12:55 PM EDT Pulse 82 11/28/2016 12:55 PM EDT Temperature 36.3 C (97.4 F) 11/28/2016 12:55 PM EDT Respiratory Rate 16 11/28/2016 12:55 PM EDT Oxygen Saturation 97% 11/28/2016 12:55 PM EDT Inhaled Oxygen Concentration - - Weight 68 kg (150 lb) 11/28/2016 12:55 PM EDT Height 157.5 cm (5' 2 ) 11/28/2016 12:55 PM EDT Body Mass Index 27.44 11/28/2016 12:55 PM EDT Plan of Treatment Health Maintenance Due Date Last Done Comments DXA SCAN 1957 TDAP/TD VACCINES (1 - Tdap) 1976 MAMMOGRAM 1997 COLOGUARD 2002 COLON CANCER SCREENING 5 YEAR SIGMOIDOSCOPY 2002 COLONOSCOPY 2002 [address] CANCER SCREENING 2002 CT COLONOGRAPHY 2002 FECAL OCCULT BLOOD TEST 2002 FIT Testing (1 year) 2002 Pneumococcal Vaccine 50+ (1 of 1 - PCV) 2007 ZOSTER VACCINE (1 of 2) 2007 ANNUAL PHYSICAL 11/28/2016 HEPATITIS C SCREENING 11/28/2016 COVID-19 Vaccine ( - season) 2024 INFLUENZA VACCINE 06/01/2025 Insurance Member Subscriber Plan / Payer (Ef fective 2020-Present) Name:Nicole Fields Relation to Subscriber:Self Name:Nicole Fields Payer ID:[id number] (NAIC) Type:POS Address: [facility] [id number] [address] on file Care Teams Demand Planning Analyst Relationship Specialty Start Date End Date Provider, [place] [address] PCP - General 11/28/16
[2025-03-29 14:54] LABS: Hematocrit 41.5 % (37.0-47.0); Hemoglobin 13.9 g/dL (12.2-16.2); Immature Granulocytes % 0.2 %; Mean Corpuscular HGB Conc 33.5 g/dL (31.8-35.4); Mean Corpuscular Hemoglobin 30.5 pg (27.0-31.2); Mean Corpuscular Volume 91.2 fl (81-99); Nucleated Red Blood Cells % 0 %; Platelet Count 270 K/mm3 (142-424); Red Blood Count 4.55 M/mm3 (4.20-5.40); Red Cell Distribution Width-SD 50.1 fL; White Blood Count 13.3 K/mm3 (4.8-10.8)
[2025-03-29 15:06] LABS: Alanine Aminotransferase 27 U/L (12-78); Albumin Level 4.9 g/dl (3.5-5.0); Albumin/Globulin Ratio 1.3 (1.1-1.8); Alkaline Phosphatase 80 U/L (38-126); Anion Gap 14.3 mEq/L (5-15); Aspartate Amino Transferase 31 U/L (14-36); Bilirubin,Total 0.5 mg/dl (0.2-1.3); Blood Urea Nitrogen 13 mg/dl (7-17); Calcium 10.3 mg/dl (8.4-10.2); Carbon Dioxide 28 mmol/L (22.0-30.0); Chloride 99 mmol/L (98-107); Creatinine Clearance Estimated 55 mL/min (50-200); Creatinine,Serum 1.00 mg/dl (0.52-1.04); Estimated Glomerular Filt Rate 55 ml/min (>60); GFR (African American) 67 ML/MIN (>60); Globulin 3.8 g/dL (1.3-3.2); Glucose 125 mg/dl (74-100); Lipase 33 U/L (23-300); Potassium 4.3 mmoL/L (3.5-5.1); Sodium 137 mmol/L (136-145); Total Protein,Serum 8.7 g/dl (6.3-8.2)
[2025-03-29] MEDS: ONDANSETRON 4MG/2ML VIAL 4 MG IV (15:10)
[2025-03-29] MEDS: RINGERS SOLUTION,LACTATED 500 ML 999 ML IV (15:10)
[2025-03-29 15:11] LABS: C-Reactive Protein 2.1 mg/L (0-4)
[2025-03-29] MEDS: SODIUM CHLORIDE 0.9% 10ML SYR (RAD ONLY) 10 ML IV (15:17)
[2025-03-29] MEDS: IOPAMIDOL-370 (76%);100ML BOTTLE 75 ML IV (15:17)
[2025-03-29 16:31] LABS: Microscopic, Urine URINE MICROSCOPIC (MICROSCOPIC)
[2025-03-29 16:47] LABS: Bilirubin,Urine Negative (Negative); Color,Urine YELLOW (Yellow); Glucose,Urine (UA) Negative (Negative); Ketones,Urine Negative (Negative); Leukocyte Esterase,Urine Negative (Negative); PH,Urine 6.0 (5.0-8.5); Protein,Urine Negative (Negative); Specific Gravity, Urine <= 1.005 (1.005-1.030); Urobilinogen,Urine 0.2 EU/dl (0.2)
[2025-03-29 17:18] LABS: Bacteria,Urine Trace /lpf; RBC,Urine Occasional #/hpf (0-3)
== END 2025-03-29 17:35 | disposition home or self-care (01) ==
PROVIDERS: Emergency Provider Student in an Organized Health Care Education/Training Program; PCP Nurse Practitioner
DX: K52.9 Noninfective gastroenteritis and colitis, unspecified (principal); I10 Essential (primary) hypertension; E78.5 Hyperlipidemia, unspecified; I20.9 Angina pectoris, unspecified; F17.210 Nicotine dependence, cigarettes, uncomplicated
CPT/HCPCS: 74177; 80053; 81001; 83690; 85025; 85651; 86140; 96374; 96375; 99285; J2405; J7120; Q9967

== ENCOUNTER 2025-04-05 11:06 | Emergency (ER) | payer MEDICARE, SELFPAY ==
--- NOTE | 2025-04-05 11:10 | HMH.EDGENADL ---
Discharge Plan Disposition Patient Disposition: Home, Self-Care Condition: Good Prescriptions Prescriptions: New acyclovir 800 mg tablet 800 mg PO 5XDAY 7 Days Qty: 35 0RF No Action trazodone 100 mg tablet 100 mg PO HS Patient Comments: TAKE 1 TABLET BY MOUTH ONCE DAILY insulin glargine [Lantus Solostar U-100 Insulin] 100 unit/mL (3 mL) insulin pen 100 unit SQ DAILY aspirin [Adult Low Dose Aspirin] 81 mg tablet,delayed release (DR/EC) 81 mg PO DAILY Qty: 30 2RF metformin 1,000 mg tablet PO nitroglycerin [Nitrostat] 0.4 mg tablet, sublingual 0.4 mg sublingual Q5M Qty: 30 2RF Rx Instructions: do not exceed 3 doses per episode atorvastatin 40 mg tablet 40 mg PO DAILY venlafaxine 75 mg capsule,extended release 24hr 75 mg PO DAILY Patient Comments: TAKE 1 CAPSULE BY MOUTH ONCE DAILY WITH FOOD hydrocodone-acetaminophen 7.5-325 mg tablet 1 tab PO Patient Comments: TAKE 1 TABLET BY MOUTH EVERY 6 HOURS NEEDED FOR 14 DAYS albuterol sulfate 90 mcg/actuation HFA aerosol inhaler 2 puff inhalation Q4H PRN (Reason: SOA) Qty: 8.5 2RF carvedilol [Coreg] 6.25 mg tablet 6.25 mg PO BID 90 Days Qty: 180 3RF Rx Instructions: must administer with a meal/food prasugrel HCl [Effient] 10 mg tablet 10 mg PO DAILY Qty: 90 3RF losartan 100 mg tablet 100 mg PO DAILY Qty: 90 3RF Stiolto Respimat 2.5-2.5 mcg/actuation mist See Rx Instructions .ROUTE .COMPLEX Qty: 12 3RF Dose Instruction: INHALE 2 PUFFS EVERY DAY Rx Instructions: INHALE 2 PUFFS EVERY DAY isosorbide mononitrate 30 mg tablet extended release 24 hr 30 mg PO DAILY 30 Days Qty: 30 3RF varenicline tartrate 0.5 mg Tablet 0.5 mg PO DAILY Referrals Follow up/Referrals: Carly Gilbert APRN [Primary Care Provider, Medical] - See instructions Activity Restrictions/Add. Instructions Additional Instructions/Restrictions: Please return to the emergency department any worsening signs or symptoms, please take all your medication as prescribed, please follow-up with your PCP in the upcoming days/weeks. Take your pain medication as prescribed at home. Clinical Impressions Clinical Impression: Shingles outbreak Instructions Patient Instructions: DI for Skin Abscess Print Language Print Language: Chinese Discharge ED Provider: Andi Ca General Adult HPI <KEYONA Flores - Last Filed: 04/05/25 11:27> General Chief complaint: Skin/Abscess/Foreign Body Stated complaint: rash all over waist right side Time Seen by Provider: 04/05/25 11:10 Mode of Arrival: Ambulatory Source of Information: Patient Limitations: No Limitations History of Present Illness HPI narrative: 69-year-old female presents emerged department with a right flank/inguinal area rash that occurred 3 days ago, however patient was seen in the emergency department on 03/29/2025, for right-sided flank pain/aminal pain, had a negative CT abdomen pelvis, negative laboratory studies and was diagnosed with intra colitis and discharged home. Patient had pain throughout that time period, now has development of rash. Patient states the rash is painful and burning, patient denies any fever chills chest pain shortness of breath, admits to nausea at times, had some episodes of vomiting last week, but this is improved, no diarrhea no constipation no urinary cosmetology, patient to current day smoker, denies any other alcohol or drug use, initial triage vitals are unremarkable, other past medical history is consistent with COPD, CAD, hypertension, degenerative disc disease of the lumbar spine, for which the patient takes hydrocodone 7.5 mg p.o. daily, T2DM, hyperlipidemia. Onset (ago): day(s) Related Data Home Medications ?Medication ?Instructions ?Recorded ?Confirmed insulin glargine 100 unit/mL (3 100 unit SQ DAILY 04/22/24 03/15/25 mL) subcutaneous pen (Lantus Solostar U-100 Insulin) trazodone 100 mg tablet 100 mg PO HS 04/22/24 03/15/25 varenicline tartrate 0.5 mg tablet 0.5 mg PO DAILY 05/05/24 03/15/25 hydrocodone 7.5 mg-acetaminophen 1 tab PO 09/15/24 03/15/25 325 mg tablet metformin 1,000 mg tablet mg PO 11/15/24 03/15/25 atorvastatin 40 mg tablet 40 mg PO DAILY 02/17/25 03/15/25 venlafaxine 75 mg capsule,extended 75 mg PO DAILY 02/17/25 03/29/25 release 24 hr Previous Rx's ?Medication ?Instructions ?Recorded aspirin 81 mg tablet,delayed 81 mg PO DAILY #30 tabs 05/24/24 release (Adult Low Dose Aspirin) nitroglycerin 0.4 mg sublingual 0.4 mg sublingual Q5M #30 tabs 10/04/24 tablet (Nitrostat) carvedilol 6.25 mg tablet (Coreg) 6.25 mg PO BID 90 days #180 tabs 10/19/24 prasugrel HCl 10 mg tablet 10 mg PO DAILY #90 tabs 10/19/24 (Effient) losartan 100 mg tablet 100 mg PO DAILY #90 tabs 10/20/24 albuterol sulfate 90 mcg/actuation 2 puff inhalation Q4H PRN SOA #8.5 11/01/24 aerosol inhaler grams tiotropium 2.5 mcg-olodaterol 2.5 See Rx Instructions .Route 01/21/25 mcg/actuation mist for inhalation .COMPLEX #12 grams (Stiolto Respimat) isosorbide mononitrate 30 mg 30 mg PO DAILY 30 days #30 tabs 04/01/25 tablet,extended release 24 hr acyclovir 800 mg tablet 800 mg PO 5XDAY 7 days #35 tabs 04/05/25 Allergies Allergy/AdvReac Type Severity Reaction Status Date / Time acetaminophen (From Percocet) AdvReac Verified 03/15/25 10:39 oxycodone (From Percocet) AdvReac Verified 03/15/25 10:39 PFS <KEYONA Flores - Last Filed: 04/05/25 11:27> [facility] Disclaimer: The information contained in this section may have been updated after the patient was seen, as this information can be updated by other users. Medical History Tobacco abuse Tobacco abuse counseling Pulmonary emphysema Multiple lung nodules on CT Smoking greater than 30 pack years COPD (chronic obstructive pulmonary disease) Smoker Angina pectoris CAD in [place] artery Chest pain Diabetes mellitus Fatigue Dyspnea Typical angina Cancer Urinary tract infection Diabetes mellitus, type 2 Hyperlipidemia Hypertension Surgical History History of back surgery History of bladder surgery History of hysterectomy History of cholecystectomy Family History (Updated 03/29/25 @ 14:47 by Teresa Reese RN) Other No significant family history Social History Smoking Status: Current every day smoker tobacco type: cigarettes second hand exposure: No alcohol intake: never current occupational status: other Travel in the last 8 weeks?: None Have you lived/traveled outside [place] in past 30 days?: No Contact w/someone who lives/traveled outside US past 30 days?: No Exposure to someone with infectious disease in past 14 days?: No Do you have a fever (greater than 100.4 F or 38 C)?: No Have you tested positive for COVID-19?: No Exposed to someone with COVID-19 in past 14 days?: No Do you have a sore throat?: No Do you have a cough?: No Do you have any weakness?: No Do you have any diarrhea?: No Are you experiencing any unusual bleeding?: No Do you have any muscle aches/pain?: No Do you have any abdominal pain?: No Are you experiencing loss of taste or smell?: No Other Medical History Have you received the Flu Vaccine for this season: No Have you received the Pneumonia Vaccine: Yes <KEYONA Flores - Last Filed: 04/05/25 11:27> ROS Obtained: Yes All systems reviewed & no additional complaints except as documented Physical Exam <KEYONA Flores - Last Filed: 04/05/25 11:27> General General appearance: alert and in no apparent distress Head Head exam: atraumatic and normocephalic Eye Eye exam: Present PERRL and EOMI ENT ENT exam: Present mucous membranes moist Neck Neck exam: Present normal inspection Chest Chest inspection: Present normal inspection and symmetric chest wall rise Respiratory Respiratory exam: Present normal lung sounds bilaterally; Absent respiratory distress Cardiovascular Cardiovascular exam: Present regular rate and normal rhythm Abdominal Exam Abdominal exam: Present soft; Absent tenderness Extremities Exam Extremities exam: Present normal inspection Neurological Exam Neurological exam: Present alert and oriented X3 Psychiatric Psychiatric exam: Present normal affect Skin Skin exam: Present warm, dry, rash and other (Vesicular rash following a dermatomal pattern on the patient's right flank, that has some extension into her inguinal area on the right, sparing the genitourinary area.) Medical Decision Making <KEYONA Flores - Last Filed: 04/05/25 11:27> Medical Records Medical records reviewed: Yes I reviewed the patient's medical records. Screening: Per USPSTF and CDC recommendations, given the prevalence of disease in our region, it is our hospital?s policy to screen for HIV and viral Hepatitis for all patients aged 18 and over and those with ongoing risk factors. Bi Inquiry Pt receiving controlled substance: No Bi was queried for this patient: No Vital Signs: 04/05/25 11:14 04/05/25 11:28 Temperature 98.8 F 98.8 F Temperature Source Oral Pulse Rate 88 Pulse Rate [Right] 86 Respiratory Rate 18 18 Blood Pressure 146/71 H Blood Pressure [Right Arm] 141/75 H Blood Pressure Mean [Right Arm] 97 02 Sat by Pulse Oximetry 100 Orders (Tests/Meds): ED MEDICATIONS Discontinued Medications Generic Name Dose Route Start Last Admin Trade Name Freq PRN Reason Stop Dose Admin Hydrocodone Bitart/Acetaminophen 1 tab 04/05/25 11:19 04/05/25 11:24 Apap/Hydrocodone 325mg/7.5mg Tab PO 04/05/25 11:20 1 tab ONCE ONE Administration Medical Decision Narrative: 69-year-old female presents the emergency department with a rash, that is painful and burning, for 2 days, on the right flank/inguinal area, differential diagnosis include but not limited to, herpes zoster, cellulitis, atopic dermatitis, contact dermatitis among others. I discussed this patient's case with the attending physician I do believe this patient has herpes zoster based on the location and distribution of the patient's rash, as well as herpetic neuralgia/prodromal symptoms developing last week, for which she had a negative abdominal workup/flank pain workup in the emergency department. This is consistent with herpes zoster, we will treat the patient with acyclovir 800 mg p.o. 5 times a day for 7 days, will also treat the patient's pain here acutely in the emerged part with 7.5 mg p.o. hydrocodone's which he takes at home, she is not yet taken this medication today at home. Patient was given strict ED return precautions. Patient voiced understanding and agreed with current treatment plan/discharge plan. Patient follow-up PCP in the upcoming days/weeks. <Andi Ca MD - Last Filed: 04/05/25 13:25> Vital Signs: 04/05/25 11:14 04/05/25 11:28 Temperature 98.8 F 98.8 F Temperature Source Oral Pulse Rate 88 Pulse Rate [Right] 86 Respiratory Rate 18 18 Blood Pressure 146/71 H Blood Pressure [Right Arm] 141/75 H Blood Pressure Mean [Right Arm] 97 02 Sat by Pulse Oximetry 100 Orders (Tests/Meds): ED MEDICATIONS Discontinued Medications Generic Name Dose Route Start Last Admin Trade Name Abigail PRN Reason Stop Dose Admin Hydrocodone Bitart/Acetaminophen 1 tab 04/05/25 11:19 04/05/25 11:24 Apap/Hydrocodone 325mg/7.5mg Tab PO 04/05/25 11:20 1 tab ONCE ONE Administration Medical Decision Narrative: 69-year-old female presents the emergency department with a rash, that is painful and burning, for 2 days, on the right flank/inguinal area, differential diagnosis include but not limited to, herpes zoster, cellulitis, atopic dermatitis, contact dermatitis among others. I discussed this patient's case with the attending physician I do believe this patient has herpes zoster based on the location and distribution of the patient's rash, as well as herpetic neuralgia/prodromal symptoms developing last week, for which she had a negative abdominal workup/flank pain workup in the emergency department. This is consistent with herpes zoster, we will treat the patient with acyclovir 800 mg p.o. 5 times a day for 7 days, will also treat the patient's pain here acutely in the emerged part with 7.5 mg p.o. hydrocodone's which he takes at home, she is not yet taken this medication today at home. Patient was given strict ED return precautions. Patient voiced understanding and agreed with current treatment plan/discharge plan. Patient follow-up PCP in the upcoming days/weeks. I was consulted by the STEPHY, and we discussed the complexity of the problems being addressed. I approve the treatment and management plan for this patient's care in the emergency department, thus performing a substantive portion of the medical decision making. Andi Ca MD Critical Care <KEYONA Flores - Last Filed: 04/05/25 11:27> Critical Care Time Critical Care Time: No
[2025-04-05 11:14] VITALS: BP 141/75; PULSE 86; RESP 18; TEMP 37.1; O2SAT 100; BMI 23.3
[2025-04-05] MEDS: APAP/HYDROCODONE 325MG/7.5MG TAB 1 TAB PO (11:24)
--- OUTSIDE RECORDS SUMMARY | 2025-04-05 11:26 | XMS_ITS ---
Author Organization Unknown Medications Date Medication Dosage DosageUnit StartDate StopDate StopReason Active DoseQuantity DoseUnit Dispense DispenseUnit Refills NdcCode DrugCode PharmacyId IsPrescription MappedMedication Srcstatus Custom 03/29 00:00 :00 Albuterol Sulfate HFA 108 (90 Base) MCG/ACT Aerosol Solution 02/17/2025 00:00:00 1 1 1 [id number] 4 287 P Taking 03/07 00:00 :00 Albuterol Sulfate HFA 108 (90 Base) MCG/ACT Aerosol Solution 02/17/2025 00:00:00 1 1 1 [id number] 4 287 P Taking 02/17 00:00 :00 Albuterol Sulfate HFA 108 (90 Base) MCG/ACT Aerosol Solution 02/17/2025 00:00:00 1 1 1 [id number] 4 287 P Start 03/29 00:00 :00 Amitriptyli ne HCl 10 MG Tablet 0 90 Tablet 0 29 436355 910 P Not Taking 03/07 00:00 :00 Amitriptyli ne HCl 10 MG Tablet 0 90 Tablet 0 29 639207 910 P Not Taking 12/30 00:00 :00 Amitriptyli ne HCl 10 MG Tablet 0 90 Tablet 0 29 726631 910 P Unknown Status 12/13 00:00 :00 Amitriptyli ne HCl 10 MG Tablet 0 90 Tablet 0 29 832440 910 P Unknown Status 10/25 00:00 :00 Amitriptyli ne HCl 10 MG Tablet 0 90 Tablet 0 29 938069 910 P Unknown Status 10/07 00:00 :00 Amitriptyli ne HCl 10 MG Tablet 0 90 Tablet 0 29 719205 910 P Not Taking 09/27 00:00 :00 Amitriptyli ne HCl 10 MG Tablet 0 90 Tablet 0 29 317599 910 P Not Taking 11/08 /2024 00:00 :00 Amitriptyli ne HCl 10 MG Tablet 0 90 Tablet 0 29 123936 910 P Not Taking 05/24 00:00 :00 Amitriptyli ne HCl 10 MG Tablet 0 90 Tablet 0 29 433442 910 P Not Taking 05/14 00:00 :00 Amitriptyli ne HCl 10 MG Tablet 0 90 Tablet 0 29 770731 910 P Not Taking 05/05 00:00 :00 Amitriptyli ne HCl 10 MG Tablet 0 90 Tablet 0 29 079019 910 P Not Taking 04/30 00:00 :00 Amitriptyli ne HCl 10 MG Tablet 0 90 Tablet 0 29 936389 910 P Not Taking 04/27 00:00 :00 Amitriptyli ne HCl 10 MG Tablet 0 90 Tablet 0 29 245954 910 P Not Taking 04/22 00:00 :00 Amitriptyli ne HCl 10 MG Tablet 0 90 Tablet 0 29 693258 910 P Not Taking 03/29 00:00 :00 Amoxicillin -Pot Clavulanate 875-125 MG Tablet 10/25/2024 00:00:00 0 20 Tablet 0 78648 227 534 P Not Taking 03/07 00:00 :00 Amoxicillin -Pot Clavulanate 875-125 MG Tablet 10/25/2024 00:00:00 0 20 Tablet 0 77485 227 534 P Not Taking 12/30 00:00 :00 Amoxicillin -Pot Clavulanate 875-125 MG Tablet 10/25/2024 00:00:00 0 20 Tablet 0 14098 227 534 P Not Taking 12/13 00:00 :00 Amoxicillin -Pot Clavulanate 875-125 MG Tablet 10/25/2024 00:00:00 1 20 Tablet 0 53870 227 534 P Taking 10/25 00:00 :00 Amoxicillin -Pot Clavulanate 875-125 MG Tablet 10/25/2024 00:00:00 1 20 Tablet 0 27515 227 534 P Start 03/29 00:00 :00 Atorvastati n Calcium 40 MG Tablet 1 90 3 000 47485 810 P Taking 03/07 00:00 :00 Atorvastati n Calcium 40 MG Tablet 1 90 3 000 53125 810 P Taking 02/16 00:00 :00 Atorvastati n Calcium 40 MG Tablet 1 90 3 000 48663 810 P Refill 12/30 00:00 :00 Atorvastati n Calcium 10 MG Tablet 1 90 Tablet 3 15719339 805 Taking 12/13 00:00 :00 Atorvastati n Calcium 10 MG Tablet 1 90 Tablet 3 52547382 805 Taking 11/16 00:00 :00 Atorvastati n Calcium 10 MG Tablet 1 90 Tablet 3 69650939 805 Start 11/16 00:00 :00 Atorvastati n Calcium 10 MG Tablet 0 90 0 435 89487 005 Stop 10/25 00:00 :00 Atorvastati n Calcium 10 MG Tablet 1 90 0 435 64275 005 P Taking 10/22 00:00 :00 Atorvastati n Calcium 10 MG Tablet 1 90 0 435 73803 005 P Refill 10/07 00:00 :00 Atorvastati n Calcium 10 MG Tablet 1 90 3 435 72647 005 P Taking 09/27 00:00 :00 Atorvastati n Calcium 10 MG Tablet 1 90 3 435 80516 005 P Taking 07/09 00:00 :00 Atorvastati n Calcium 10 MG Tablet 1 90 3 435 01574 005 P Taking 05/24 00:00 :00 Atorvastati n Calcium 10 MG Tablet 1 90 3 435 69540 005 P Taking 05/14 00:00 :00 Atorvastati n Calcium 10 MG Tablet 1 90 3 435 74756 005 P Taking 05/05 00:00 :00 Atorvastati n Calcium 10 MG Tablet 1 90 3 435 02201 005 P Taking 04/30 00:00 :00 Atorvastati n Calcium 10 MG Tablet 1 90 3 435 45225 005 P Taking 04/27 00:00 :00 Atorvastati n Calcium 10 MG Tablet 1 90 3 435 37406 005 P Taking 04/22 00:00 :00 Atorvastati n Calcium 10 MG Tablet 1 90 3 435 14550 005 P Taking 03/29 00:00 :00 Azithromyci n 250 MG Tablet 0 6 Tablet 0 501 05969 751 Not Taking 03/07 00:00 :00 Azithromyci n 250 MG Tablet 0 6 Tablet 0 501 22877 751 Not Taking 12/30 00:00 :00 Azithromyci n 250 MG Tablet 0 6 Tablet 0 501 16036 751 Unknown Status 12/13 00:00 :00 Azithromyci n 250 MG Tablet 0 6 Tablet 0 501 63018 751 Unknown Status 10/25 00:00 :00 Azithromyci n 250 MG Tablet 0 6 Tablet 0 501 34247 751 Unknown Status 10/07 00:00 :00 Azithromyci n 250 MG Tablet 0 6 Tablet 0 501 54987 751 Not Taking 09/27 00:00 :00 Azithromyci n 250 MG Tablet 0 6 Tablet 0 501 94887 751 Not Taking 07/09 00:00 :00 Azithromyci n 250 MG Tablet 0 6 Tablet 0 501 61774 751 Not Taking 05/24 00:00 :00 Azithromyci n 250 MG Tablet 0 6 Tablet 0 501 22415 751 Not Taking 05/14 00:00 :00 Azithromyci n 250 MG Tablet 0 6 Tablet 0 501 78421 751 Not Taking 05/05 00:00 :00 Azithromyci n 250 MG Tablet 0 6 Tablet 0 501 00624 751 Not Taking 04/30 00:00 :00 Azithromyci n 250 MG Tablet 0 6 Tablet 0 501 58719 751 Not Taking 04/27 00:00 :00 Azithromyci n 250 MG Tablet 0 6 Tablet 0 501 79191 751 Not Taking 04/22 00:00 :00 Azithromyci n 250 MG Tablet 0 6 Tablet 0 501 46952 751 Not Taking 03/29 00:00 :00 Baby Aspirin 1 Taking 03/07 00:00 :00 Baby Aspirin 1 Taking 12/30 00:00 :00 Baby Aspirin 1 Taking 12/13 00:00 :00 Baby Aspirin 1 Taking 10/25 00:00 :00 Baby Aspirin 1 Taking 10/07 00:00 :00 Baby Aspirin 1 Taking 09/27 00:00 :00 Baby Aspirin 1 Taking 07/09 00:00 :00 Baby Aspirin 1 Taking 05/24 00:00 :00 Baby Aspirin 1 Taking 03/29 00:00 :00 Blood Glucose Monitor System w/Devic e Kit 10/16/2022 00:00:00 1 1 [id number] 2 914 P Taking 03/07 00:00 :00 Blood Glucose Monitor System w/Devic e Kit 10/16/2022 00:00:00 1 1 [id number] 2 914 P Taking 12/30 00:00 :00 Blood Glucose Monitor System w/Devic e Kit 10/16/2022 00:00:00 1 1 [id number] 2 914 P Taking 12/13 00:00 :00 Blood Glucose Monitor System w/Devic e Kit 10/16/2022 00:00:00 1 1 [id number] 2 914 P Taking 10/25 00:00 :00 Blood Glucose Monitor System w/Devic e Kit 10/16/2022 00:00:00 1 1 [id number] 2 914 P Taking 10/07 00:00 :00 Blood Glucose Monitor System w/Devic e Kit 10/16/2022 00:00:00 1 1 [id number] 2 914 P Taking 09/27 00:00 :00 Blood Glucose Monitor System w/Devic e Kit 10/16/2022 00:00:00 1 1 [id number] 2 914 P Taking 07/09 00:00 :00 Blood Glucose Monitor System w/Devic e Kit 10/16/2022 00:00:00 1 1 [id number] 2 914 P Taking 05/24 00:00 :00 Blood Glucose Monitor System w/Devic e Kit 10/16/2022 00:00:00 1 1 [id number] 2 914 P Taking 05/14 00:00 :00 Blood Glucose Monitor System w/Devic e Kit 10/16/2022 00:00:00 1 1 [id number] 2 914 P Taking 05/05 00:00 :00 Blood Glucose Monitor System w/Devic e Kit 10/16/2022 00:00:00 1 1 [id number] 2 914 P Taking 04/30 00:00 :00 Blood Glucose Monitor System w/Devic e Kit 10/16/2022 00:00:00 1 1 [id number] 2 914 P Taking 04/27 00:00 :00 Blood Glucose Monitor System w/Devic e Kit 10/16/2022 00:00:00 1 1 [id number] 2 914 P Taking 04/22 00:00 :00 Blood Glucose Monitor System w/Devic e Kit 10/16/2022 00:00:00 1 1 [id number] 2 914 P Taking 04/30 00:00 :00 buPROPion HCl ER (SR) 150 MG Tablet Extended Release 12 Hour 0 90 Tablet 1 9569607 7 505 Discontinu ed 04/27 00:00 :00 buPROPion HCl ER (SR) 150 MG Tablet Extended Release 12 Hour 1 90 Tablet 1 7082958 7 505 Taking 04/22 00:00 :00 buPROPion HCl ER (SR) 150 MG Tablet Extended Release 12 Hour 1 90 Tablet 1 2661814 7 505 Start 04/22 00:00 :00 buPROPion HCl ER (SR) 150 MG Tablet Extended Release 12 Hour 0 30 5 11724766 105 Stop 04/22 00:00 :00 buPROPion HCl ER (SR) 150 MG Tablet Extended Release 12 Hour 10/29/2023 00:00:00 0 30 5 1794611 4 105 P Not Taking 03/29 00:00 :00 Carvedilol 6.25 MG Tablet 1 60 Tablet 43000458 305 Taking 03/07 00:00 :00 Carvedilol 6.25 MG Tablet 1 60 Tablet 38789243 305 Taking 12/30 00:00 :00 Carvedilol 6.25 MG Tablet 1 60 Tablet 40115144 305 Taking 12/13 00:00 :00 Carvedilol 6.25 MG Tablet 1 60 Tablet 10663964 305 Taking 10/25 00:00 :00 Carvedilol 6.25 MG Tablet 1 60 Tablet 14303428 305 Taking 10/07 00:00 :00 Carvedilol 6.25 MG Tablet 1 60 Tablet 08610377 305 Taking 09/27 00:00 :00 Carvedilol 6.25 MG Tablet 1 60 Tablet 64003687 305 Taking 07/09 00:00 :00 Carvedilol 6.25 MG Tablet 1 60 Tablet 65325845 305 Taking 05/24 00:00 :00 Carvedilol 6.25 MG Tablet 1 0009 3013 501 Taking 03/29 00:00 :00 Cefdinir 300 MG Capsule 04/30/2024 00:00:00 0 20 Capsule 0 27447876 006 P Not Taking 03/07 00:00 :00 Cefdinir 300 MG Capsule 04/30/2024 00:00:00 1 20 Capsule 0 10332024 006 P Taking 12/30 00:00 :00 Cefdinir 300 MG Capsule 04/30/2024 00:00:00 1 20 Capsule 0 70087474 006 P Refill 12/30 00:00 :00 Cefdinir 300 MG Capsule 04/30/2024 00:00:00 0 20 Capsule 0 81057381 006 P Unknown Status 12/13 00:00 :00 Cefdinir 300 MG Capsule 04/30/2024 00:00:00 0 20 Capsule 0 79391610 006 P Unknown Status 10/25 00:00 :00 Cefdinir 300 MG Capsule 04/30/2024 00:00:00 0 20 Capsule 0 02392795 006 P Unknown Status 10/07 00:00 :00 Cefdinir 300 MG Capsule 04/30/2024 00:00:00 0 20 Capsule 0 66188996 006 P Not Taking 09/27 00:00 :00 Cefdinir 300 MG Capsule 04/30/2024 00:00:00 0 20 Capsule 0 22143864 006 P Not Taking 07/20 00:00 :00 Cefdinir 300 MG Capsule 04/30/2024 00:00:00 1 20 Capsule 0 [id number] 006 P Refill 07/09 00:00 :00 Cefdinir 300 MG Capsule 04/30/2024 00:00:00 0 20 Capsule 0 38346845 006 P Not Taking 05/24 00:00 :00 Cefdinir 300 MG Capsule 04/30/2024 00:00:00 0 20 Capsule 0 [id number] 006 P Not Taking 05/14 00:00 :00 Cefdinir 300 MG Capsule 04/30/2024 00:00:00 1 20 Capsule 0 16864040 006 P Taking 05/05 00:00 :00 Cefdinir 300 MG Capsule 04/30/2024 00:00:00 1 20 Capsule 0 15433052 006 P Taking 04/30 00:00 :00 Cefdinir 300 MG Capsule 04/30/2024 00:00:00 1 20 Capsule 0 06150507 006 P Start 03/29 00:00 :00 Doxycycline Hyclate 100 MG Capsule 09/27/2024 00:00:00 0 20 Capsule 0 78668855 305 P Not Taking 03/07 00:00 :00 Doxycycline Hyclate 100 MG Capsule 09/27/2024 00:00:00 0 20 Capsule 0 [id number] 305 P Not Taking 12/30 00:00 :00 Doxycycline Hyclate 100 MG Capsule 09/27/2024 00:00:00 0 20 Capsule 0 92691022 305 P Unknown Status 12/13 00:00 :00 Doxycycline Hyclate 100 MG Capsule 09/27/2024 00:00:00 0 20 Capsule 0 39684905 305 P Unknown Status 10/25 00:00 :00 Doxycycline Hyclate 100 MG Capsule 09/27/2024 00:00:00 0 20 Capsule 0 [id number] 305 P Unknown Status 10/07 00:00 :00 Doxycycline Hyclate 100 MG Capsule 09/27/2024 00:00:00 0 20 Capsule 0 72018360 305 P Not Taking 09/27 00:00 :00 Doxycycline Hyclate 100 MG Capsule 09/27/2024 00:00:00 1 20 Capsule 0 41414413 305 P Start 03/29 00:00 :00 Doxycycline Monohydrate 100 MG Capsule 12/13/2024 00:00:00 0 20 0 5241246 9 202 P Not Taking 03/07 00:00 :00 Doxycycline Monohydrate 100 MG Capsule 12/13/2024 00:00:00 0 20 0 6877663 9 202 P Not Taking 12/30 00:00 :00 Doxycycline Monohydrate 100 MG Capsule 12/13/2024 00:00:00 0 20 0 [id number] 9 202 P Not Taking 12/13 00:00 :00 Doxycycline Monohydrate 100 MG Capsule 12/13/2024 00:00:00 1 20 0 [id number] 9 202 P Start 03/29 00:00 :00 DULoxetine HCl 30 MG Capsule Delayed Release Particles 0 180 Capsule 3 74572453 710 Not Taking 03/07 00:00 :00 DULoxetine HCl 30 MG Capsule Delayed Release Particles 0 180 Capsule 3 59111060 710 Not Taking 12/30 00:00 :00 DULoxetine HCl 30 MG Capsule Delayed Release Particles 0 180 Capsule 3 63228039 710 Not Taking 12/13 00:00 :00 DULoxetine HCl 30 MG Capsule Delayed Release Particles 1 180 Capsule 3 62723251 710 Taking 11/16 00:00 :00 DULoxetine HCl 30 MG Capsule Delayed Release Particles 1 180 Capsule 3 40566999 710 Start 11/16 00:00 :00 DULoxetine HCl 30 MG Capsule Delayed Release Particles 0 180 0 6530288 9 103 Stop 10/25 00:00 :00 DULoxetine HCl 30 MG Capsule Delayed Release Particles 1 180 0 5815593 9 103 P Taking 10/22 00:00 :00 DULoxetine HCl 30 MG Capsule Delayed Release Particles 1 180 0 0408179 9 103 P Refill 10/07 00:00 :00 DULoxetine HCl 30 MG Capsule Delayed Release Particles 1 180 3 8139051 9 103 P Taking 09/27 00:00 :00 DULoxetine HCl 30 MG Capsule Delayed Release Particles 1 180 3 [id number] 9 103 P Taking 07/09 00:00 :00 DULoxetine HCl 30 MG Capsule Delayed Release Particles 1 180 3 9200074 9 103 P Taking 05/24 00:00 :00 DULoxetine HCl 30 MG Capsule Delayed Release Particles 1 180 3 8519124 9 103 P Taking 05/14 00:00 :00 DULoxetine HCl 30 MG Capsule Delayed Release Particles 1 180 3 7524852 9 103 P Taking 05/05 00:00 :00 DULoxetine HCl 30 MG Capsule Delayed Release Particles 1 180 3 1895125 9 103 P Taking 04/30 00:00 :00 DULoxetine HCl 30 MG Capsule Delayed Release Particles 1 180 3 8419862 9 103 P Refill 04/30 00:00 :00 DULoxetine HCl 20 MG Capsule Delayed Release Particles 1 180 Capsule 3 07540535 760 P Taking 04/27 00:00 :00 DULoxetine HCl 20 MG Capsule Delayed Release Particles 1 180 Capsule 3 59389932 760 P Taking 04/22 00:00 :00 DULoxetine HCl 20 MG Capsule Delayed Release Particles 1 180 Capsule 3 64867054 760 P Taking 03/29 00:00 :00 Glucose Meter Test - Strip 10/16/2022 00:00:00 1 270 3 [id number] 0 675 P Taking 03/07 00:00 :00 Glucose Meter Test - Strip 10/16/2022 00:00:00 1 270 3 [id number] 0 675 P Taking 12/30 00:00 :00 Glucose Meter Test - Strip 10/16/2022 00:00:00 1 270 3 [id number] 0 675 P Taking 12/13 00:00 :00 Glucose Meter Test - Strip 10/16/2022 00:00:00 1 270 3 [id number] 0 675 P Taking 10/25 00:00 :00 Glucose Meter Test - Strip 10/16/2022 00:00:00 1 270 3 [id number] 0 675 P Taking 10/07 00:00 :00 Glucose Meter Test - Strip 10/16/2022 00:00:00 1 270 3 1404537 0 675 P Taking 09/27 00:00 :00 Glucose Meter Test - Strip 10/16/2022 00:00:00 1 270 3 [id number] 0 675 P Taking 07/09 00:00 :00 Glucose Meter Test - Strip 10/16/2022 00:00:00 1 270 3 [id number] 0 675 P Taking 05/24 00:00 :00 Glucose Meter Test - Strip 10/16/2022 00:00:00 1 270 3 [id number] 0 675 P Taking 05/14 00:00 :00 Glucose Meter Test - Strip 10/16/2022 00:00:00 1 270 3 [id number] 0 675 P Taking 05/05 00:00 :00 Glucose Meter Test - Strip 10/16/2022 00:00:00 1 270 3 [id number] 0 675 P Taking 04/30 00:00 :00 Glucose Meter Test - Strip 10/16/2022 00:00:00 1 270 3 [id number] 0 675 P Taking 04/27 00:00 :00 Glucose Meter Test - Strip 10/16/2022 00:00:00 1 270 3 [id number] 0 675 P Taking 04/22 00:00 :00 Glucose Meter Test - Strip 10/16/2022 00:00:00 1 270 3 3030142 0 675 P Taking 03/29 00:00 :00 HYDROcodone -Acetaminop hen 7.5-325 MG Tablet 03/07/2025 00:00:00 1 56 Tablet 0 21808 011 510 P Taking 03/07 00:00 :00 HYDROcodone -Acetaminop hen 7.5-325 MG Tablet 03/07/2025 00:00:00 1 56 Tablet 0 07951 011 510 P Refill 03/07 00:00 :00 HYDROcodone -Acetaminop hen 7.5-325 MG Tablet 01/27/2025 00:00:00 1 56 Tablet 0 73956 011 510 P Taking 01/27 00:00 :00 HYDROcodone -Acetaminop hen 7.5-325 MG Tablet 01/27/2025 00:00:00 1 56 Tablet 0 51461 011 510 P Refill 12/30 00:00 :00 HYDROcodone -Acetaminop hen 7.5-325 MG Tablet 12/08/2024 00:00:00 1 56 Tablet 0 77805 011 510 P Taking 12/13 00:00 :00 HYDROcodone -Acetaminop hen 7.5-325 MG Tablet 12/08/2024 00:00:00 1 56 Tablet 0 72044 011 510 P Taking 12/08 00:00 :00 HYDROcodone -Acetaminop hen 7.5-325 MG Tablet 12/08/2024 00:00:00 1 56 Tablet 0 44862 011 510 P Refill 10/25 00:00 :00 HYDROcodone -Acetaminop hen 7.5-325 MG Tablet 10/04/2024 00:00:00 1 56 Tablet 0 83308 011 510 P Taking 10/07 00:00 :00 HYDROcodone -Acetaminop hen 7.5-325 MG Tablet 10/04/2024 00:00:00 1 56 Tablet 0 74864 011 510 P Taking 10/01 00:00 :00 HYDROcodone -Acetaminop hen 7.5-325 MG Tablet 10/04/2024 00:00:00 1 56 Tablet 0 07470 011 510 P Refill 09/27 00:00 :00 HYDROcodone -Acetaminop hen 7.5-325 MG Tablet 09/02/2024 00:00:00 1 56 Tablet 0 87402 011 510 P Taking 09/02 00:00 :00 HYDROcodone -Acetaminop hen 7.5-325 MG Tablet 09/02/2024 00:00:00 1 56 Tablet 0 62675 011 510 P Refill 08/05 00:00 :00 HYDROcodone -Acetaminop hen 7.5-325 MG Tablet 08/05/2024 00:00:00 1 56 Tablet 0 89223 011 510 P Refill 07/09 00:00 :00 HYDROcodone -Acetaminop hen 7.5-325 MG Tablet 07/09/2024 00:00:00 1 56 Tablet 0 34635 011 510 P Refill 07/09 00:00 :00 HYDROcodone -Acetaminop hen 7.5-325 MG Tablet 06/25/2024 00:00:00 1 28 Tablet 0 27505 011 510 P Taking 06/25 00:00 :00 HYDROcodone -Acetaminop hen 7.5-325 MG Tablet 06/25/2024 00:00:00 1 28 Tablet 0 41681 011 510 P Refill 06/07 00:00 :00 HYDROcodone -Acetaminop hen 7.5-325 MG Tablet 06/07/2024 00:00:00 1 28 Tablet 0 73798 011 510 P Start 03/29 00:00 :00 Lancets 33G - Miscellaneo 10/16/2022 00:00:00 1 270 3 [id number] 1 708 P Taking 03/07 00:00 :00 Lancets 33G - Miscellaneo us 10/16/2022 00:00:00 1 270 3 [id number] 1 708 P Taking 12/30 00:00 :00 Lancets 33G - Miscellaneo us 10/16/2022 00:00:00 1 270 3 [id number] 1 708 P Taking 12/13 00:00 :00 Lancets 33G - Miscellaneo us 10/16/2022 00:00:00 1 270 3 [id number] 1 708 P Taking 10/25 00:00 :00 Lancets 33G - Miscellaneo us 10/16/2022 00:00:00 1 270 3 [id number] 1 708 P Taking 10/07 00:00 :00 Lancets 33G - Miscellaneo us 10/16/2022 00:00:00 1 270 3 [id number] 1 708 P Taking 09/27 00:00 :00 Lancets 33G - Miscellaneo us 10/16/2022 00:00:00 1 270 3 [id number] 1 708 P Taking 07/09 00:00 :00 Lancets 33G - Miscellaneo us 10/16/2022 00:00:00 1 270 3 [id number] 1 708 P Taking 05/24 00:00 :00 Lancets 33G - Miscellaneo us 10/16/2022 00:00:00 1 270 3 [id number] 1 708 P Taking 05/14 00:00 :00 Lancets 33G - Miscellaneo us 10/16/2022 00:00:00 1 270 3 [id number] 1 708 P Taking 05/05 00:00 :00 Lancets 33G - Miscellaneo us 10/16/2022 00:00:00 1 270 3 [id number] 1 708 P Taking 04/30 00:00 :00 Lancets 33G - Miscellaneo us 10/16/2022 00:00:00 1 270 3 [id number] 1 708 P Taking 04/27 00:00 :00 Lancets 33G - Miscellaneo us 10/16/2022 00:00:00 1 270 3 [id number] 1 708 P Taking 04/22 00:00 :00 Lancets 33G - Miscellaneo us 10/16/2022 00:00:00 1 270 3 [id number] 1 708 P Taking 10/05 00:00 :00 Lantus 100 UNIT/ML Solution 10/04/2024 00:00:00 0 3452534 2 033 P Stop 10/04 00:00 :00 Lantus 100 UNIT/ML Solution 10/04/2024 00:00:00 1 12 Millilite r 5 62725714 033 P Start 03/29 00:00 :00 Lantus SoloStar 100 UNIT/ML Solution Pen-injecto r 10/05/2024 00:00:00 1 36 3 [id number] 1 900 P Taking 03/07 00:00 :00 Lantus SoloStar 100 UNIT/ML Solution Pen-injecto r 10/05/2024 00:00:00 1 36 3 [id number] 1 900 P Taking 12/30 00:00 :00 Lantus SoloStar 100 UNIT/ML Solution Pen-injecto r 10/05/2024 00:00:00 1 36 3 [id number] 1 900 P Taking 12/13 00:00 :00 Lantus SoloStar 100 UNIT/ML Solution Pen-injecto r 10/05/2024 00:00:00 1 36 3 [id number] 1 900 P Taking 10/25 00:00 :00 Lantus SoloStar 100 UNIT/ML Solution Pen-injecto r 10/05/2024 00:00:00 1 36 3 [id number] 1 900 P Taking 10/22 00:00 :00 Lantus SoloStar 100 UNIT/ML Solution Pen-injecto r 10/05/2024 00:00:00 1 36 3 [id number] 1 900 P Refill 10/07 00:00 :00 Lantus SoloStar 100 UNIT/ML Solution Pen-injecto r 10/05/2024 00:00:00 1 12 5 [id number] 1 900 P Taking 10/05 00:00 :00 Lantus SoloStar 100 UNIT/ML Solution Pen-injecto r 10/05/2024 00:00:00 1 12 5 [id number] 1 900 P Start 10/04 00:00 :00 Lantus SoloStar 100 UNIT/ML Solution Pen-injecto r 0 15 0 22220152 900 Stop 09/27 00:00 :00 Lantus SoloStar 100 UNIT/ML Solution Pen-injecto r 06/03/2023 00:00:00 1 15 0 [id number] 1 900 P Taking 07/09 00:00 :00 Lantus SoloStar 100 UNIT/ML Solution Pen-injecto r 06/03/2023 00:00:00 1 15 0 [id number] 1 900 P Taking 06/07 00:00 :00 Lantus SoloStar 100 UNIT/ML Solution Pen-injecto r 06/03/2023 00:00:00 1 15 0 6406531 1 900 P Refill 05/24 00:00 :00 Lantus SoloStar 100 UNIT/ML Solution Pen-injecto r 06/03/2023 00:00:00 1 15 0 [id number] 1 900 P Taking 05/14 00:00 :00 Lantus SoloStar 100 UNIT/ML Solution Pen-injecto r 06/03/2023 00:00:00 1 15 0 [id number] 1 900 P Taking 05/05 00:00 :00 Lantus SoloStar 100 UNIT/ML Solution Pen-injecto r 06/03/2023 00:00:00 1 15 0 [id number] 1 900 P Taking 04/30 00:00 :00 Lantus SoloStar 100 UNIT/ML Solution Pen-injecto r 06/03/2023 00:00:00 1 15 0 [id number] 1 900 P Taking 04/27 00:00 :00 Lantus SoloStar 100 UNIT/ML Solution Pen-injecto r 06/03/2023 00:00:00 1 15 0 4365795 1 900 P Taking 04/22 00:00 :00 Lantus SoloStar 100 UNIT/ML Solution Pen-injecto r 06/03/2023 00:00:00 1 15 0 [id number] 1 900 P Taking 04/20 00:00 :00 Lantus SoloStar 100 UNIT/ML Solution Pen-injecto r 06/03/2023 00:00:00 1 15 0 [id number] 1 900 P Refill 03/29 00:00 :00 Lisinopril- hydroCHLORO thiazide 20-12.5 MG Tablet 1 90 Tablet 0 19237272 754 Taking 03/07 00:00 :00 Lisinopril- hydroCHLORO thiazide 20-12.5 MG Tablet 1 90 Tablet 0 04357317 754 Taking 12/30 00:00 :00 Lisinopril- hydroCHLORO thiazide 20-12.5 MG Tablet 1 90 Tablet 0 09533453 754 Taking 12/13 00:00 :00 Lisinopril- hydroCHLORO thiazide 20-12.5 MG Tablet 1 90 Tablet 0 45370153 754 Taking 10/25 00:00 :00 Lisinopril- hydroCHLORO thiazide 20-12.5 MG Tablet 1 90 Tablet 0 97577852 754 Taking 10/18 00:00 :00 Lisinopril- hydroCHLORO thiazide 20-12.5 MG Tablet 1 90 Tablet 0 39882028 754 Start 10/18 00:00 :00 Lisinopril- hydroCHLORO thiazide 20-12.5 MG Tablet 0 90 Tablet 0 [id number] 754 Stop 10/07 00:00 :00 Lisinopril- hydroCHLORO thiazide 20-12.5 MG Tablet 1 90 Tablet 0 [id number] 754 Taking 09/27 00:00 :00 Lisinopril- hydroCHLORO thiazide 20-12.5 MG Tablet 1 90 Tablet 0 [id number] 754 Taking 07/16 00:00 :00 Lisinopril- hydroCHLORO thiazide 20-12.5 MG Tablet 1 90 Tablet 0 [id number] 754 Start 07/16 00:00 :00 Lisinopril- hydroCHLORO thiazide 20-12.5 MG Tablet 0 90 Tablet 0 [id number] 754 Stop 07/09 00:00 :00 Lisinopril- hydroCHLORO thiazide 20-12.5 MG Tablet 0 90 Tablet 0 [id number] 754 Not Taking 05/24 00:00 :00 Lisinopril- hydroCHLORO thiazide 20-12.5 MG Tablet 0 90 Tablet 0 [id number] 754 Not Taking 05/14 00:00 :00 Lisinopril- hydroCHLORO thiazide 20-12.5 MG Tablet 0 90 Tablet 0 [id number] 754 Not Taking 05/05 00:00 :00 Lisinopril- hydroCHLORO thiazide 20-12.5 MG Tablet 0 90 Tablet 0 [id number] 754 Not Taking 04/30 00:00 :00 Lisinopril- hydroCHLORO thiazide 20-12.5 MG Tablet 0 90 Tablet 0 [id number] 754 Not Taking 04/27 00:00 :00 Lisinopril- hydroCHLORO thiazide 20-12.5 MG Tablet 1 90 Tablet 0 [id number] 754 Taking 04/22 00:00 :00 Lisinopril- hydroCHLORO thiazide 20-12.5 MG Tablet 1 90 Tablet 0 [id number] 754 Taking 04/20 00:00 :00 Lisinopril- hydroCHLORO thiazide 20-12.5 MG Tablet 1 90 Tablet 0 [id number] 754 Start 04/20 00:00 :00 Lisinopril- hydroCHLORO thiazide 20-12.5 MG Tablet 0 30 5 [id number] 902 Stop 03/29 00:00 :00 LORazepam 0.5 MG Tablet 04/30/2024 00:00:00 1 60 Tablet 0 [id number] 342 501 P Taking 03/07 00:00 :00 LORazepam 0.5 MG Tablet 04/30/2024 00:00:00 1 60 Tablet 0 [id number] 342 501 P Taking 12/30 00:00 :00 LORazepam 0.5 MG Tablet 04/30/2024 00:00:00 1 60 Tablet 0 [id number] 342 501 P Taking 12/13 00:00 :00 LORazepam 0.5 MG Tablet 04/30/2024 00:00:00 1 60 Tablet 0 [id number] 342 501 P Taking 10/25 00:00 :00 LORazepam 0.5 MG Tablet 04/30/2024 00:00:00 1 60 Tablet 0 [id number] 342 501 P Taking 10/07 00:00 :00 LORazepam 0.5 MG Tablet 04/30/2024 00:00:00 1 60 Tablet 0 [id number] 342 501 P Taking 09/27 00:00 :00 LORazepam 0.5 MG Tablet 04/30/2024 00:00:00 1 60 Tablet 0 [id number] 342 501 P Taking 07/09 00:00 :00 LORazepam 0.5 MG Tablet 04/30/2024 00:00:00 1 60 Tablet 0 [id number] 342 501 P Taking 05/24 00:00 :00 LORazepam 0.5 MG Tablet 04/30/2024 00:00:00 1 60 Tablet 0 [id number] 342 501 P Taking 05/14 00:00 :00 LORazepam 0.5 MG Tablet 04/30/2024 00:00:00 1 60 Tablet 0 [id number] 342 501 P Taking 05/05 00:00 :00 LORazepam 0.5 MG Tablet 04/30/2024 00:00:00 1 60 Tablet 0 [id number] 342 501 P Taking 04/30 00:00 :00 LORazepam 0.5 MG Tablet 04/30/2024 00:00:00 1 60 Tablet 0 [id number] 342 501 P Start 03/29 00:00 :00 Losartan Potassium 100 MG Tablet 1 [id number] 961 Taking 03/07 00:00 :00 Losartan Potassium 100 MG Tablet 1 [id number] 961 Taking 12/30 00:00 :00 Losartan Potassium 100 MG Tablet 1 [id number] 961 Taking 12/13 00:00 :00 Losartan Potassium 100 MG Tablet 1 [id number] 961 Taking 10/25 00:00 :00 Losartan Potassium 100 MG Tablet 1 [id number] 961 Taking 10/07 00:00 :00 Losartan Potassium 100 MG Tablet 1 [id number] 961 Taking 09/27 00:00 :00 Losartan Potassium 100 MG Tablet 1 [id number] 961 Taking 03/29 00:00 :00 Losartan Potassium-H CTZ 100-25 MG Tablet 1 90 Each 0 [id number] 210 P Taking 03/29 00:00 :00 Losartan Potassium-H CTZ 100-25 MG Tablet 0 90 Each 0 [id number] 210 P Not Taking 03/29 00:00 :00 Losartan Potassium-H CTZ 100-25 MG Tablet 0 90 Tablet [id number] 210 Not Taking 03/29 00:00 :00 Losartan Potassium-H CTZ 100-25 MG Tablet 0 90 Tablet [id number] 210 Not Taking 03/29 00:00 :00 Losartan Potassium-H CTZ 100-25 MG Tablet 0 90 Tablet [id number] 210 Not Taking 03/07 00:00 :00 Losartan Potassium-H CTZ 100-25 MG Tablet 1 90 Each 0 [id number] 210 P Taking 03/07 00:00 :00 Losartan Potassium-H CTZ 100-25 MG Tablet 0 90 Each 0 98208335 210 P Not Taking 03/07 00:00 :00 Losartan Potassium-H CTZ 100-25 MG Tablet 0 90 Tablet [id number] 210 Not Taking 03/07 00:00 :00 Losartan Potassium-H CTZ 100-25 MG Tablet 0 90 Tablet [id number] 210 Not Taking 03/07 00:00 :00 Losartan Potassium-H CTZ 100-25 MG Tablet 0 90 Tablet [id number] 210 Not Taking 12/30 00:00 :00 Losartan Potassium-H CTZ 100-25 MG Tablet 1 90 Each 0 [id number] 210 P Taking 12/30 00:00 :00 Losartan Potassium-H CTZ 100-25 MG Tablet 0 90 Each 0 [id number] 210 P Unknown Status 12/30 00:00 :00 Losartan Potassium-H CTZ 100-25 MG Tablet 0 90 Tablet [id number] 210 Unknown Status 12/30 00:00 :00 Losartan Potassium-H CTZ 100-25 MG Tablet 0 90 Tablet [id number] 210 Unknown Status 12/30 00:00 :00 Losartan Potassium-H CTZ 100-25 MG Tablet 0 90 Tablet [id number] 210 Unknown Status 12/13 00:00 :00 Losartan Potassium-H CTZ 100-25 MG Tablet 1 90 Each 0 [id number] 210 P Taking 12/13 00:00 :00 Losartan Potassium-H CTZ 100-25 MG Tablet 0 90 Each 0 84129635 210 P Unknown Status 12/13 00:00 :00 Losartan Potassium-H CTZ 100-25 MG Tablet 0 90 Tablet [id number] 210 Unknown Status 12/13 00:00 :00 Losartan Potassium-H CTZ 100-25 MG Tablet 0 90 Tablet [id number] 210 Unknown Status 12/13 00:00 :00 Losartan Potassium-H CTZ 100-25 MG Tablet 0 90 Tablet [id number] 210 Unknown Status 10/25 00:00 :00 Losartan Potassium-H CTZ 100-25 MG Tablet 1 90 Each 0 [id number] 210 P Taking 10/25 00:00 :00 Losartan Potassium-H CTZ 100-25 MG Tablet 0 90 Each 0 [id number] 210 P Unknown Status 10/25 00:00 :00 Losartan Potassium-H CTZ 100-25 MG Tablet 0 90 Tablet [id number] 210 Unknown Status 10/25 00:00 :00 Losartan Potassium-H CTZ 100-25 MG Tablet 0 90 Tablet [id number] 210 Unknown Status 10/25 00:00 :00 Losartan Potassium-H CTZ 100-25 MG Tablet 0 90 Tablet [id number] 210 Unknown Status 10/07 00:00 :00 Losartan Potassium-H CTZ 100-25 MG Tablet 1 90 Each 0 [id number] 210 P Taking 10/07 00:00 :00 Losartan Potassium-H CTZ 100-25 MG Tablet 0 90 Each 0 [id number] 210 P Not Taking 10/07 00:00 :00 Losartan Potassium-H CTZ 100-25 MG Tablet 0 90 Tablet [id number] 210 Not Taking 10/07 00:00 :00 Losartan Potassium-H CTZ 100-25 MG Tablet 0 90 Tablet [id number] 210 Not Taking 10/07 00:00 :00 Losartan Potassium-H CTZ 100-25 MG Tablet 0 90 Tablet [id number] 210 Not Taking 09/27 00:00 :00 Losartan Potassium-H CTZ 100-25 MG Tablet 1 90 Each 0 [id number] 210 P Taking 09/27 00:00 :00 Losartan Potassium-H CTZ 100-25 MG Tablet 0 90 Each 0 [id number] 210 P Not Taking 09/27 00:00 :00 Losartan Potassium-H CTZ 100-25 MG Tablet 0 90 Tablet [id number] 210 Not Taking 09/27 00:00 :00 Losartan Potassium-H CTZ 100-25 MG Tablet 0 90 Tablet [id number] 210 Not Taking 09/27 00:00 :00 Losartan Potassium-H CTZ 100-25 MG Tablet 0 90 Tablet [id number] 210 Not Taking 07/09 00:00 :00 Losartan Potassium-H CTZ 100-25 MG Tablet 1 90 Each 0 [id number] 210 P Taking 07/09 00:00 :00 Losartan Potassium-H CTZ 100-25 MG Tablet 1 90 Each 0 [id number] 210 P Taking 07/09 00:00 :00 Losartan Potassium-H CTZ 100-25 MG Tablet 0 90 Tablet [id number] 210 Not Taking 07/09 00:00 :00 Losartan Potassium-H CTZ 100-25 MG Tablet 0 90 Tablet [id number] 210 Not Taking 07/09 00:00 :00 Losartan Potassium-H CTZ 100-25 MG Tablet 0 90 Tablet [id number] 210 Not Taking 05/24 00:00 :00 Losartan Potassium-H CTZ 100-25 MG Tablet 1 90 Each 0 [id number] 210 P Taking 05/24 00:00 :00 Losartan Potassium-H CTZ 100-25 MG Tablet 1 90 Tablet [id number] 210 Taking 05/24 00:00 :00 Losartan Potassium-H CTZ 100-25 MG Tablet 1 90 Each 0 [id number] 210 P Taking 05/24 00:00 :00 Losartan Potassium-H CTZ 100-25 MG Tablet 0 90 Tablet [id number] 210 Not Taking 05/24 00:00 :00 Losartan Potassium-H CTZ 100-25 MG Tablet 0 90 Tablet [id number] 210 Not Taking 05/14 00:00 :00 Losartan Potassium-H CTZ 100-25 MG Tablet 1 90 Each 0 [id number] 210 P Taking 05/05 00:00 :00 Losartan Potassium-H CTZ 100-25 MG Tablet 1 90 Each 0 [id number] 210 P Taking 04/30 00:00 :00 Losartan Potassium-H CTZ 100-25 MG Tablet 1 90 Each 0 [id number] 210 P Taking 03/29 00:00 :00 Macrobid 100 MG Capsule 05/04/2024 00:00:00 0 14 Capsule 0 [id number] 501 P Not Taking 03/07 00:00 :00 Macrobid 100 MG Capsule 05/04/2024 00:00:00 0 14 Capsule 0 [id number] 501 P Not Taking 12/30 00:00 :00 Macrobid 100 MG Capsule 05/04/2024 00:00:00 0 14 Capsule 0 [id number] 501 P Unknown Status 12/13 00:00 :00 Macrobid 100 MG Capsule 05/04/2024 00:00:00 0 14 Capsule 0 78652737 501 P Unknown Status 10/25 00:00 :00 Macrobid 100 MG Capsule 05/04/2024 00:00:00 0 14 Capsule 0 [id number] 501 P Unknown Status 10/07 00:00 :00 Macrobid 100 MG Capsule 05/04/2024 00:00:00 0 14 Capsule 0 [id number] 501 P Not Taking 09/27 00:00 :00 Macrobid 100 MG Capsule 05/04/2024 00:00:00 0 14 Capsule 0 [id number] 501 P Not Taking 07/09 00:00 :00 Macrobid 100 MG Capsule 05/04/2024 00:00:00 0 14 Capsule 0 [id number] 501 P Not Taking 05/24 00:00 :00 Macrobid 100 MG Capsule 05/04/2024 00:00:00 0 14 Capsule 0 88347664 501 P Not Taking 05/14 00:00 :00 Macrobid 100 MG Capsule 05/04/2024 00:00:00 1 14 Capsule 0 [id number] 501 P Taking 05/05 00:00 :00 Macrobid 100 MG Capsule 05/04/2024 00:00:00 1 14 Capsule 0 [id number] 501 P Taking 05/04 00:00 :00 Macrobid 100 MG Capsule 05/04/2024 00:00:00 1 14 Capsule 0 [id number] 501 P Start 03/29 00:00 :00 Meloxicam 15 MG Tablet 0 90 Tablet 0 69 [id number] 915 P Not Taking 03/07 00:00 :00 Meloxicam 15 MG Tablet 0 90 Tablet 0 69 326601 915 P Not Taking 12/30 00:00 :00 Meloxicam 15 MG Tablet 0 90 Tablet 0 69 488999 915 P Unknown Status 12/13 00:00 :00 Meloxicam 15 MG Tablet 0 90 Tablet 0 69 454808 915 P Unknown Status 10/25 00:00 :00 Meloxicam 15 MG Tablet 0 90 Tablet 0 69 205137 915 P Unknown Status 10/07 00:00 :00 Meloxicam 15 MG Tablet 0 90 Tablet 0 69 740359 915 P Not Taking 09/27 00:00 :00 Meloxicam 15 MG Tablet 0 90 Tablet 0 69 529388 915 P Not Taking 07/09 00:00 :00 Meloxicam 15 MG Tablet 0 90 Tablet 0 69 793840 915 P Not Taking 05/24 00:00 :00 Meloxicam 15 MG Tablet 0 90 Tablet 0 69 948541 915 P Not Taking 05/14 00:00 :00 Meloxicam 15 MG Tablet 1 90 Tablet 0 69 145344 915 P Taking 05/05 00:00 :00 Meloxicam 15 MG Tablet 1 90 Tablet 0 69 206020 915 P Taking 04/30 00:00 :00 Meloxicam 15 MG Tablet 1 90 Tablet 0 69 393165 915 P Taking 04/27 00:00 :00 Meloxicam 15 MG Tablet 1 90 Tablet 0 69 513044 915 P Taking 04/22 00:00 :00 Meloxicam 15 MG Tablet 1 90 Tablet 0 69 645440 915 P Taking 04/20 00:00 :00 Meloxicam 15 MG Tablet 1 90 Tablet 0 69 620305 915 P Refill 03/29 00:00 :00 metFORMIN HCl 1000 MG Tablet 1 180 0 21676 058 459 Taking 03/24 00:00 :00 metFORMIN HCl 1000 MG Tablet 1 180 0 69172 058 459 Start 03/24 00:00 :00 metFORMIN HCl 1000 MG Tablet 0 180 0 96727 058 459 Stop 03/07 00:00 :00 metFORMIN HCl 1000 MG Tablet 1 180 0 39157 058 459 Taking 12/30 00:00 :00 metFORMIN HCl 1000 MG Tablet 1 180 0 08833 058 459 Taking 12/13 00:00 :00 metFORMIN HCl 1000 MG Tablet 1 180 0 37707 058 459 Taking 11/16 00:00 :00 metFORMIN HCl 1000 MG Tablet 1 180 0 40930 058 459 Start 11/16 00:00 :00 metFORMIN HCl 1000 MG Tablet 0 180 0 71356 058 459 Stop 10/25 00:00 :00 metFORMIN HCl 1000 MG Tablet 1 180 0 18241 058 459 P Taking 10/22 00:00 :00 metFORMIN HCl 1000 MG Tablet 1 180 0 17739 058 459 P Refill 10/22 00:00 :00 metFORMIN HCl 1000 MG Tablet 1 60 Tablet 0 6 8206341 459 Start 10/22 00:00 :00 metFORMIN HCl 1000 MG Tablet 0 60 Tablet 0 6 4451225 459 Stop 10/07 00:00 :00 metFORMIN HCl 1000 MG Tablet 1 60 Tablet 0 6 8440045 459 Taking 09/27 00:00 :00 metFORMIN HCl 1000 MG Tablet 1 60 Tablet 0 6 [id number] 459 Taking 09/20 00:00 :00 metFORMIN HCl 1000 MG Tablet 1 60 Tablet 0 6 1907212 459 Start 09/20 00:00 :00 metFORMIN HCl 1000 MG Tablet 0 60 Tablet 0 6 2672405 459 Stop 07/18 00:00 :00 metFORMIN HCl 1000 MG Tablet 1 60 Tablet 0 6 1833748 459 Start 07/18 00:00 :00 metFORMIN HCl 1000 MG Tablet 0 60 Tablet 0 6 9500762 459 Stop 07/09 00:00 :00 metFORMIN HCl 1000 MG Tablet 1 60 Tablet 0 6 [id number] 459 Taking 06/20 00:00 :00 metFORMIN HCl 1000 MG Tablet 1 60 Tablet 0 6 [id number] 459 Start 06/20 00:00 :00 metFORMIN HCl 1000 MG Tablet 0 60 Tablet 0 6 [id number] 459 Stop 05/24 00:00 :00 metFORMIN HCl 1000 MG Tablet 1 60 Tablet 0 6 [id number] 459 Taking 05/14 00:00 :00 metFORMIN HCl 1000 MG Tablet 1 60 Tablet 0 6 3622754 459 Taking 05/05 00:00 :00 metFORMIN HCl 1000 MG Tablet 1 60 Tablet 0 6 [id number] 459 Taking 04/30 00:00 :00 metFORMIN HCl 1000 MG Tablet 1 60 Tablet 0 6 7495877 459 Taking 04/27 00:00 :00 metFORMIN HCl 1000 MG Tablet 1 60 Tablet 0 6 [id number] 459 Taking 04/22 00:00 :00 metFORMIN HCl 1000 MG Tablet 1 60 Tablet 0 6 3881384 459 Taking 04/18 00:00 :00 metFORMIN HCl 1000 MG Tablet 1 60 Tablet 0 6 0071608 459 Start 04/18 00:00 :00 metFORMIN HCl 1000 MG Tablet 0 30 5 71279 004 710 Stop 03/29 00:00 :00 Neomycin-Po lymyxin-Dex ameth 0.1 % Suspension 03/07/2025 00:00:00 0 3 ML 0 6241166 1 505 P Not Taking 03/07 00:00 :00 Neomycin-Po lymyxin-Dex ameth 0.1 % Suspension 03/07/2025 00:00:00 1 3 ML 0 4073610 1 505 P Start 03/29 00:00 :00 Nicoderm CQ 21 MG/24HR Patch 24 Hour 04/30/2024 00:00:00 1 30 1 [id number] 9 401 P Taking 03/07 00:00 :00 Nicoderm CQ 21 MG/24HR Patch 24 Hour 04/30/2024 00:00:00 1 30 1 [id number] 9 401 P Taking 12/30 00:00 :00 Nicoderm CQ 21 MG/24HR Patch 24 Hour 04/30/2024 00:00:00 1 30 1 [id number] 9 401 P Taking 12/13 00:00 :00 Nicoderm CQ 21 MG/24HR Patch 24 Hour 04/30/2024 00:00:00 1 30 1 [id number] 9 401 P Taking 10/25 00:00 :00 Nicoderm CQ 21 MG/24HR Patch 24 Hour 04/30/2024 00:00:00 1 30 1 [id number] 9 401 P Taking 10/07 00:00 :00 Nicoderm CQ 21 MG/24HR Patch 24 Hour 04/30/2024 00:00:00 1 30 1 [id number] 9 401 P Taking 09/27 00:00 :00 Nicoderm CQ 21 MG/24HR Patch 24 Hour 04/30/2024 00:00:00 1 30 1 [id number] 9 401 P Taking 07/09 00:00 :00 Nicoderm CQ 21 MG/24HR Patch 24 Hour 04/30/2024 00:00:00 1 30 1 [id number] 9 401 P Taking 05/24 00:00 :00 Nicoderm CQ 21 MG/24HR Patch 24 Hour 04/30/2024 00:00:00 1 30 1 [id number] 9 401 P Taking 05/14 00:00 :00 Nicoderm CQ 21 MG/24HR Patch 24 Hour 04/30/2024 00:00:00 1 30 1 [id number] 9 401 P Taking 05/05 00:00 :00 Nicoderm CQ 21 MG/24HR Patch 24 Hour 04/30/2024 00:00:00 1 30 1 [id number] 9 401 P Taking 04/30 00:00 :00 Nicoderm CQ 21 MG/24HR Patch 24 Hour 04/30/2024 00:00:00 1 30 1 [id number] 9 401 P Start 03/29 00:00 :00 Ondansetron HCl 4 MG Tablet 04/30/2023 00:00:00 0 30 0 [id number] 5 161 P Not Taking 03/07 00:00 :00 Ondansetron HCl 4 MG Tablet 04/30/2023 00:00:00 0 30 0 4680396 5 161 P Not Taking 12/30 00:00 :00 Ondansetron HCl 4 MG Tablet 04/30/2023 00:00:00 0 30 0 [id number] 5 161 P Unknown Status 12/13 00:00 :00 Ondansetron HCl 4 MG Tablet 04/30/2023 00:00:00 0 30 0 [id number] 5 161 P Unknown Status 10/25 00:00 :00 Ondansetron HCl 4 MG Tablet 04/30/2023 00:00:00 0 30 0 [id number] 5 161 P Unknown Status 10/07 00:00 :00 Ondansetron HCl 4 MG Tablet 04/30/2023 00:00:00 0 30 0 0038349 5 161 P Not Taking 09/27 00:00 :00 Ondansetron HCl 4 MG Tablet 04/30/2023 00:00:00 0 30 0 [id number] 5 161 P Not Taking 07/09 00:00 :00 Ondansetron HCl 4 MG Tablet 04/30/2023 00:00:00 0 30 0 7169200 5 161 P Not Taking 05/24 00:00 :00 Ondansetron HCl 4 MG Tablet 04/30/2023 00:00:00 0 30 0 [id number] 5 161 P Not Taking 05/14 00:00 :00 Ondansetron HCl 4 MG Tablet 04/30/2023 00:00:00 0 30 0 [id number] 5 161 P Not Taking 05/05 00:00 :00 Ondansetron HCl 4 MG Tablet 04/30/2023 00:00:00 0 30 0 [id number] 5 161 P Not Taking 04/30 00:00 :00 Ondansetron HCl 4 MG Tablet 04/30/2023 00:00:00 0 30 0 [id number] 5 161 P Not Taking 04/27 00:00 :00 Ondansetron HCl 4 MG Tablet 04/30/2023 00:00:00 0 30 0 7864943 5 161 P Not Taking 04/22 00:00 :00 Ondansetron HCl 4 MG Tablet 04/30/2023 00:00:00 0 30 0 [id number] 5 161 P Not Taking 03/29 00:00 :00 Oseltamivir Phosphate 75 MG Capsule 10/25/2024 00:00:00 0 10 1032825 9 313 P Not Taking 03/07 00:00 :00 Oseltamivir Phosphate 75 MG Capsule 10/25/2024 00:00:00 0 10 7183755 9 313 P Not Taking 12/30 00:00 :00 Oseltamivir Phosphate 75 MG Capsule 10/25/2024 00:00:00 0 10 4123394 9 313 P Not Taking 12/13 00:00 :00 Oseltamivir Phosphate 75 MG Capsule 10/25/2024 00:00:00 1 10 0394247 9 313 P Taking 10/25 00:00 :00 Oseltamivir Phosphate 75 MG Capsule 10/25/2024 00:00:00 1 10 [id number] 9 313 P Start 03/29 00:00 :00 Ozempic (0.25 or 0.5 MG/DOSE) 2 MG/3ML Solution Pen-injecto r 05/14/2023 00:00:00 0 4 5 3274484 8 113 P Not Taking 03/07 00:00 :00 Ozempic (0.25 or 0.5 MG/DOSE) 2 MG/3ML Solution Pen-injecto r 05/14/2023 00:00:00 0 4 5 [id number] 8 113 P Not Taking 12/30 00:00 :00 Ozempic (0.25 or 0.5 MG/DOSE) 2 MG/3ML Solution Pen-injecto r 05/14/2023 00:00:00 0 4 5 [id number] 8 113 P Unknown Status 12/13 00:00 :00 Ozempic (0.25 or 0.5 MG/DOSE) 2 MG/3ML Solution Pen-injecto r 05/14/2023 00:00:00 0 4 5 3680170 8 113 P Unknown Status 10/25 00:00 :00 Ozempic (0.25 or 0.5 MG/DOSE) 2 MG/3ML Solution Pen-injecto r 05/14/2023 00:00:00 0 4 5 0420530 8 113 P Unknown Status 10/07 00:00 :00 Ozempic (0.25 or 0.5 MG/DOSE) 2 MG/3ML Solution Pen-injecto r 05/14/2023 00:00:00 0 4 5 [id number] 8 113 P Not Taking 09/27 00:00 :00 Ozempic (0.25 or 0.5 MG/DOSE) 2 MG/3ML Solution Pen-injecto r 05/14/2023 00:00:00 0 4 5 [id number] 8 113 P Not Taking 07/09 00:00 :00 Ozempic (0.25 or 0.5 MG/DOSE) 2 MG/3ML Solution Pen-injecto r 05/14/2023 00:00:00 0 4 5 [id number] 8 113 P Not Taking 05/24 00:00 :00 Ozempic (0.25 or 0.5 MG/DOSE) 2 MG/3ML Solution Pen-injecto r 05/14/2023 00:00:00 0 4 5 8994393 8 113 P Not Taking 05/14 00:00 :00 Ozempic (0.25 or 0.5 MG/DOSE) 2 MG/3ML Solution Pen-injecto r 05/14/2023 00:00:00 0 4 5 [id number] 8 113 P Not Taking 05/05 00:00 :00 Ozempic (0.25 or 0.5 MG/DOSE) 2 MG/3ML Solution Pen-injecto r 05/14/2023 00:00:00 0 4 5 [id number] 8 113 P Not Taking 04/30 00:00 :00 Ozempic (0.25 or 0.5 MG/DOSE) 2 MG/3ML Solution Pen-injecto r 05/14/2023 00:00:00 0 4 5 [id number] 8 113 P Not Taking 04/27 00:00 :00 Ozempic (0.25 or 0.5 MG/DOSE) 2 MG/3ML Solution Pen-injecto r 05/14/2023 00:00:00 0 4 5 [id number] 8 113 P Not Taking 04/22 00:00 :00 Ozempic (0.25 or 0.5 MG/DOSE) 2 MG/3ML Solution Pen-injecto r 05/14/2023 00:00:00 0 4 5 8088400 8 113 P Not Taking 03/29 00:00 :00 Prasugrel HCl 10 MG Tablet 1 30 Each 1 86358 083 030 P Taking 03/07 00:00 :00 Prasugrel HCl 10 MG Tablet 1 30 Each 1 46734 083 030 P Taking 12/30 00:00 :00 Prasugrel HCl 10 MG Tablet 1 30 Each 1 75163 083 030 P Taking 12/13 00:00 :00 Prasugrel HCl 10 MG Tablet 1 30 Each 1 27072 083 030 P Taking 10/25 00:00 :00 Prasugrel HCl 10 MG Tablet 1 30 Each 1 90236 083 030 P Taking 10/07 00:00 :00 Prasugrel HCl 10 MG Tablet 1 30 Each 1 88388 083 030 P Taking 09/27 00:00 :00 Prasugrel HCl 10 MG Tablet 1 30 Each 1 00029 083 030 P Taking 07/09 00:00 :00 Prasugrel HCl 10 MG Tablet 1 30 Each 1 41948 083 030 P Taking 03/29 00:00 :00 Promethazin e-DM 6.25-15 MG/5ML Syrup 10/25/2024 00:00:00 0 140 ML 0 4784195 5 701 P Not Taking 03/29 00:00 :00 Promethazin e-DM 6.25-15 MG/5ML Syrup 09/27/2024 00:00:00 0 200 ML 0 9855964 5 701 P Not Taking 03/07 00:00 :00 Promethazin e-DM 6.25-15 MG/5ML Syrup 10/25/2024 00:00:00 1 140 ML 0 3417853 5 701 P Taking 03/07 00:00 :00 Promethazin e-DM 6.25-15 MG/5ML Syrup 09/27/2024 00:00:00 0 200 ML 0 7118280 5 701 P Not Taking 12/30 00:00 :00 Promethazin e-DM 6.25-15 MG/5ML Syrup 10/25/2024 00:00:00 1 140 ML 0 3500847 5 701 P Refill 12/30 00:00 :00 Promethazin e-DM 6.25-15 MG/5ML Syrup 10/25/2024 00:00:00 0 140 ML 0 [id number] 5 701 P Not Taking 12/30 00:00 :00 Promethazin e-DM 6.25-15 MG/5ML Syrup 09/27/2024 00:00:00 0 200 ML 0 5361871 5 701 P Unknown Status 12/13 00:00 :00 Promethazin e-DM 6.25-15 MG/5ML Syrup 10/25/2024 00:00:00 1 140 ML 0 [id number] 5 701 P Taking 12/13 00:00 :00 Promethazin e-DM 6.25-15 MG/5ML Syrup 09/27/2024 00:00:00 0 200 ML 0 9256838 5 701 P Unknown Status 10/25 00:00 :00 Promethazin e-DM 6.25-15 MG/5ML Syrup 10/25/2024 00:00:00 1 140 ML 0 9888254 5 701 P Start 10/25 00:00 :00 Promethazin e-DM 6.25-15 MG/5ML Syrup 09/27/2024 00:00:00 0 200 ML 0 1802903 5 701 P Unknown Status 10/07 00:00 :00 Promethazin e-DM 6.25-15 MG/5ML Syrup 09/27/2024 00:00:00 0 200 ML 0 [id number] 5 701 P Not Taking 09/27 00:00 :00 Promethazin e-DM 6.25-15 MG/5ML Syrup 09/27/2024 00:00:00 1 200 ML 0 [id number] 5 701 P Start 10/04 00:00 :00 Semglee (yfgn) 100 UNIT/ML Solution Pen-injecto r 0 29814878 233 Stop 10/04 00:00 :00 Semglee (yfgn) 100 UNIT/ML Solution Pen-injecto r 1 15 Millilite r 0 27458764 [facility] Start 03/29 00:00 :00 traMADol HCl 50 MG Tablet 07/09/2024 00:00:00 1 60 Tablet 0 89679 330 101 P Taking 03/07 00:00 :00 traMADol HCl 50 MG Tablet 07/09/2024 00:00:00 1 60 Tablet 0 07070 330 101 P Taking 12/30 00:00 :00 traMADol HCl 50 MG Tablet 07/09/2024 00:00:00 1 60 Tablet 0 35824 330 101 P Taking 12/13 00:00 :00 traMADol HCl 50 MG Tablet 07/09/2024 00:00:00 1 60 Tablet 0 59799 330 101 P Taking 10/25 00:00 :00 traMADol HCl 50 MG Tablet 07/09/2024 00:00:00 1 60 Tablet 0 82406 330 101 P Taking 10/07 00:00 :00 traMADol HCl 50 MG Tablet 07/09/2024 00:00:00 1 60 Tablet 0 14378 330 101 P Taking 09/27 00:00 :00 traMADol HCl 50 MG Tablet 07/09/2024 00:00:00 1 60 Tablet 0 88441 330 101 P Taking 07/09 00:00 :00 traMADol HCl 50 MG Tablet 07/09/2024 00:00:00 1 60 Tablet 0 34365 330 101 P Refill 07/09 00:00 :00 traMADol HCl 50 MG Tablet 05/24/2024 00:00:00 1 60 Tablet 0 42854 330 101 P Taking 05/24 00:00 :00 traMADol HCl 50 MG Tablet 05/24/2024 00:00:00 1 60 Tablet 0 51401 330 101 P Start 03/29 00:00 :00 traZODone HCl 100 MG Tablet 1 90 Tablet 3 68 603765 610 P Taking 03/07 00:00 :00 traZODone HCl 100 MG Tablet 1 90 Tablet 3 68 282755 610 P Taking 12/30 00:00 :00 traZODone HCl 100 MG Tablet 1 90 Tablet 3 68 665639 610 P Taking 12/28 00:00 :00 traZODone HCl 100 MG Tablet 1 90 Tablet 3 68 608230 610 P Refill 12/13 00:00 :00 traZODone HCl 100 MG Tablet 1 90 Tablet 3 68 419948 610 Taking 11/16 00:00 :00 traZODone HCl 100 MG Tablet 1 90 Tablet 3 68 809136 610 Start 11/16 00:00 :00 traZODone HCl 100 MG Tablet 0 90 0 527942 80 601 Stop 10/25 00:00 :00 traZODone HCl 100 MG Tablet 1 90 0 479806 80 601 P Taking 10/22 00:00 :00 traZODone HCl 100 MG Tablet 1 90 0 841760 80 601 P Refill 10/07 00:00 :00 traZODone HCl 100 MG Tablet 1 90 Tablet 0 68 272727 601 Taking 09/27 00:00 :00 traZODone HCl 100 MG Tablet 1 90 Tablet 0 68 775044 601 Taking 09/20 00:00 :00 traZODone HCl 100 MG Tablet 1 90 Tablet 0 68 216951 601 Start 09/20 00:00 :00 traZODone HCl 100 MG Tablet 0 90 Tablet 0 68 186893 601 Stop 07/09 00:00 :00 traZODone HCl 100 MG Tablet 1 90 Tablet 0 68 817277 601 Taking 05/24 00:00 :00 traZODone HCl 100 MG Tablet 1 90 Tablet 0 68 811068 601 Taking 05/14 00:00 :00 traZODone HCl 100 MG Tablet 1 90 Tablet 0 68 361564 601 Taking 05/05 00:00 :00 traZODone HCl 100 MG Tablet 1 90 Tablet 0 68 648314 601 Taking 04/30 00:00 :00 traZODone HCl 100 MG Tablet 1 90 Tablet 0 68 196318 601 Taking 04/27 00:00 :00 traZODone HCl 100 MG Tablet 1 90 Tablet 0 68 096655 601 Taking 04/22 00:00 :00 traZODone HCl 100 MG Tablet 1 90 Tablet 0 68 212629 601 Taking 03/29 00:00 :00 Triamcinolo ne Acetonide 0.5 % Cream 11/06/2023 00:00:00 0 1 1 5817851 0 215 P Not Taking 03/07 00:00 :00 Triamcinolo ne Acetonide 0.5 % Cream 11/06/2023 00:00:00 1 1 1 2319615 0 215 P Taking 12/30 00:00 :00 Triamcinolo ne Acetonide 0.5 % Cream 11/06/2023 00:00:00 1 1 1 2674636 0 215 P Taking 12/13 00:00 :00 Triamcinolo ne Acetonide 0.5 % Cream 11/06/2023 00:00:00 1 1 1 0130335 0 215 P Taking 10/25 00:00 :00 Triamcinolo ne Acetonide 0.5 % Cream 11/06/2023 00:00:00 1 1 1 [id number] 0 215 P Taking 10/07 00:00 :00 Triamcinolo ne Acetonide 0.5 % Cream 11/06/2023 00:00:00 1 1 1 6504411 0 215 P Taking 09/27 00:00 :00 Triamcinolo ne Acetonide 0.5 % Cream 11/06/2023 00:00:00 1 1 1 9100143 0 215 P Taking 07/09 00:00 :00 Triamcinolo ne Acetonide 0.5 % Cream 11/06/2023 00:00:00 1 1 1 [id number] 0 215 P Taking 05/24 00:00 :00 Triamcinolo ne Acetonide 0.5 % Cream 11/06/2023 00:00:00 1 1 1 [id number] 0 215 P Taking 05/14 00:00 :00 Triamcinolo ne Acetonide 0.5 % Cream 11/06/2023 00:00:00 1 1 1 [id number] 0 215 P Taking 05/05 00:00 :00 Triamcinolo ne Acetonide 0.5 % Cream 11/06/2023 00:00:00 1 1 1 [id number] 0 215 P Taking 04/30 00:00 :00 Triamcinolo ne Acetonide 0.5 % Cream 11/06/2023 00:00:00 1 1 1 [id number] 0 215 P Taking 04/27 00:00 :00 Triamcinolo ne Acetonide 0.5 % Cream 11/06/2023 00:00:00 1 1 1 [id number] 0 215 P Taking 04/22 00:00 :00 Triamcinolo ne Acetonide 0.5 % Cream 11/06/2023 00:00:00 1 1 1 [id number] 0 215 P Taking 03/29 00:00 :00 Trulicity 1.5 MG/0.5M L Solution Pen-injecto r 09/02/2023 00:00:00 0 0 [id number] 3 401 P Not Taking 03/29 00:00 :00 Trulicity 1.5 MG/0.5M L Solution Pen-injecto r 09/30/2023 00:00:00 0 4 0 [id number] 3 401 P Not Taking 03/07 00:00 :00 Trulicity 1.5 MG/0.5M L Solution Pen-injecto r 09/02/2023 00:00:00 0 0 [id number] 3 401 P Not Taking 03/07 00:00 :00 Trulicity 1.5 MG/0.5M L Solution Pen-injecto r 09/30/2023 00:00:00 0 4 0 [id number] 3 401 P Not Taking 12/30 00:00 :00 Trulicity 1.5 MG/0.5M L Solution Pen-injecto r 09/02/2023 00:00:00 0 0 [id number] 3 401 P Unknown Status 12/30 00:00 :00 Trulicity 1.5 MG/0.5M L Solution Pen-injecto r 09/30/2023 00:00:00 0 4 0 [id number] 3 401 P Unknown Status 12/13 00:00 :00 Trulicity 1.5 MG/0.5M L Solution Pen-injecto r 09/02/2023 00:00:00 0 0 [id number] 3 401 P Unknown Status 12/13 00:00 :00 Trulicity 1.5 MG/0.5M L Solution Pen-injecto r 09/30/2023 00:00:00 0 4 0 [id number] 3 401 P Unknown Status 10/25 00:00 :00 Trulicity 1.5 MG/0.5M L Solution Pen-injecto r 09/02/2023 00:00:00 0 0 [id number] 3 401 P Unknown Status 10/25 00:00 :00 Trulicity 1.5 MG/0.5M L Solution Pen-injecto r 09/30/2023 00:00:00 0 4 0 [id number] 3 401 P Unknown Status 10/07 00:00 :00 Trulicity 1.5 MG/0.5M L Solution Pen-injecto r 09/02/2023 00:00:00 0 0 [id number] 3 401 P Not Taking 10/07 00:00 :00 Trulicity 1.5 MG/0.5M L Solution Pen-injecto r 09/30/2023 00:00:00 0 4 0 [id number] 3 401 P Not Taking 09/27 00:00 :00 Trulicity 1.5 MG/0.5M L Solution Pen-injecto r 09/02/2023 00:00:00 0 0 [id number] 3 401 P Not Taking 09/27 00:00 :00 Trulicity 1.5 MG/0.5M L Solution Pen-injecto r 09/30/2023 00:00:00 0 4 0 [id number] 3 401 P Not Taking 07/09 00:00 :00 Trulicity 1.5 MG/0.5M L Solution Pen-injecto r 09/02/2023 00:00:00 0 0 [id number] 3 401 P Not Taking 07/09 00:00 :00 Trulicity 1.5 MG/0.5M L Solution Pen-injecto r 09/30/2023 00:00:00 0 4 0 [id number] 3 401 P Not Taking 05/24 00:00 :00 Trulicity 1.5 MG/0.5M L Solution Pen-injecto r 09/02/2023 00:00:00 0 0 [id number] 3 401 P Not Taking 05/24 00:00 :00 Trulicity 1.5 MG/0.5M L Solution Pen-injecto r 09/30/2023 00:00:00 0 4 0 [id number] 3 401 P Not Taking 05/14 00:00 :00 Trulicity 1.5 MG/0.5M L Solution Pen-injecto r 09/02/2023 00:00:00 0 0 [id number] 3 401 P Not Taking 05/14 00:00 :00 Trulicity 1.5 MG/0.5M L Solution Pen-injecto r 09/30/2023 00:00:00 0 4 0 [id number] 3 401 P Not Taking 05/05 00:00 :00 Trulicity 1.5 MG/0.5M L Solution Pen-injecto r 09/02/2023 00:00:00 0 0 [id number] 3 401 P Not Taking 05/05 00:00 :00 Trulicity 1.5 MG/0.5M L Solution Pen-injecto r 09/30/2023 00:00:00 0 4 0 [id number] 3 401 P Not Taking 04/30 00:00 :00 Trulicity 1.5 MG/0.5M L Solution Pen-injecto r 09/02/2023 00:00:00 0 0 [id number] 3 401 P Not Taking 04/30 00:00 :00 Trulicity 1.5 MG/0.5M L Solution Pen-injecto r 09/30/2023 00:00:00 0 4 0 [id number] 3 401 P Not Taking 04/27 00:00 :00 Trulicity 1.5 MG/0.5M L Solution Pen-injecto r 09/02/2023 00:00:00 0 0 [id number] 3 401 P Not Taking 04/27 00:00 :00 Trulicity 1.5 MG/0.5M L Solution Pen-injecto r 09/30/2023 00:00:00 0 4 0 [id number] 3 401 P Not Taking 04/22 00:00 :00 Trulicity 1.5 MG/0.5M L Solution Pen-injecto r 09/02/2023 00:00:00 0 0 [id number] 3 401 P Not Taking 04/22 00:00 :00 Trulicity 1.5 MG/0.5M L Solution Pen-injecto r 09/30/2023 00:00:00 0 4 0 [id number] 3 401 P Not Taking 03/29 00:00 :00 Varenicline Tartrate (Starter) 0.5 MG X 11 & 1 MG X 42 Tablet Therapy Pack 04/30/2024 00:00:00 1 1 0 [id number] 9 185 P Taking 03/07 00:00 :00 Varenicline Tartrate (Starter) 0.5 MG X 11 & 1 MG X 42 Tablet Therapy Pack 04/30/2024 00:00:00 1 1 0 [id number] 9 185 P Taking 12/30 00:00 :00 Varenicline Tartrate (Starter) 0.5 MG X 11 & 1 MG X 42 Tablet Therapy Pack 04/30/2024 00:00:00 1 1 0 [id number] 9 185 P Taking 12/13 00:00 :00 Varenicline Tartrate (Starter) 0.5 MG X 11 & 1 MG X 42 Tablet Therapy Pack 04/30/2024 00:00:00 1 1 0 [id number] 185 P Taking 10/25 00:00 :00 Varenicline Tartrate (Starter) 0.5 MG X 11 & 1 MG X 42 Tablet Therapy Pack 04/30/2024 00:00:00 1 1 0 [id number] 185 P Taking 10/07 00:00 :00 Varenicline Tartrate (Starter) 0.5 MG X 11 & 1 MG X 42 Tablet Therapy Pack 04/30/2024 00:00:00 1 1 0 [id number] 185 P Taking 09/27 00:00 :00 Varenicline Tartrate (Starter) 0.5 MG X 11 & 1 MG X 42 Tablet Therapy Pack 04/30/2024 00:00:00 1 1 0 [id number] 185 P Taking 07/09 00:00 :00 Varenicline Tartrate (Starter) 0.5 MG X 11 & 1 MG X 42 Tablet Therapy Pack 04/30/2024 00:00:00 1 1 0 [id number] 185 P Taking 05/24 00:00 :00 Varenicline Tartrate (Starter) 0.5 MG X 11 & 1 MG X 42 Tablet Therapy Pack 04/30/2024 00:00:00 1 1 0 [id number] 185 P Taking 05/14 00:00 :00 Varenicline Tartrate (Starter) 0.5 MG X 11 & 1 MG X 42 Tablet Therapy Pack 04/30/2024 00:00:00 1 1 0 [id number] 185 P Taking 05/05 00:00 :00 Varenicline Tartrate (Starter) 0.5 MG X 11 & 1 MG X 42 Tablet Therapy Pack 04/30/2024 00:00:00 1 1 0 [id number] 185 P Taking 04/30 00:00 :00 Varenicline Tartrate (Starter) 0.5 MG X 11 & 1 MG X 42 Tablet Therapy Pack 04/30/2024 00:00:00 1 1 0 [id number] 185 P Start 03/29 00:00 :00 Venlafaxine HCl ER 75 MG Capsule Extended Release 24 Hour 12/13/2024 00:00:00 1 90 0 [id number] 505 P Taking 03/07 00:00 :00 Venlafaxine HCl ER 75 MG Capsule Extended Release 24 Hour 12/13/2024 00:00:00 1 90 0 [id number] 505 P Taking 01/27 00:00 :00 Venlafaxine HCl ER 75 MG Capsule Extended Release 24 Hour 12/13/2024 00:00:00 1 90 0 [id number] 505 P Refill 12/30 00:00 :00 Venlafaxine HCl ER 37.5 MG Capsule Extended Release 24 Hour 12/13/2024 00:00:00 1 90 0 [id number] 405 P Taking 12/29 00:00 :00 Venlafaxine HCl ER 37.5 MG Capsule Extended Release 24 Hour 12/13/2024 00:00:00 1 90 0 [id number] 405 P Refill 12/13 00:00 :00 Venlafaxine HCl ER 37.5 MG Capsule Extended Release 24 Hour 12/13/2024 00:00:00 1 30 3 [id number] 405 P Start
--- OUTSIDE RECORDS SUMMARY | 2025-04-05 11:26 | XMS_ITS | Clinical Summary ---
[facility] Address [address] [place] [address] Care Team Providers Care Instructor Painting Name Role Phone Provider, No Known Primary [...] Name:Nicole Fields Payer ID:[id number] (NAIC) Type:POS Address: [facility] [id number] on file Care Teams Instructor Painting Relationship Specialty Start Date End Date Provider, [place] [address] PCP - General 11/28/16
[2025-04-05 11:28] VITALS: BP 146/71; PULSE 88; RESP 18; TEMP 37.1; O2SAT 100
== END 2025-04-05 11:32 | disposition home or self-care (01) ==
PROVIDERS: Emergency Provider Student in an Organized Health Care Education/Training Program; PCP Nurse Practitioner
DX: B02.9 Zoster without complications (principal); E78.5 Hyperlipidemia, unspecified; F17.210 Nicotine dependence, cigarettes, uncomplicated
CPT/HCPCS: 99283

== ENCOUNTER 2025-04-12 12:17 | Emergency (ER) | payer MEDICARE, SELFPAY ==
[2025-04-12] VITALS (10 sets, daily range): BP systolic 93–147; BP diastolic 62–77; PULSE 62–75; RESP 13–19; TEMP 37.1; O2SAT 95–99; BMI 23.3
--- NOTE | 2025-04-12 12:19 | ECG_ITS ---
APPROVED REPORT Exam: Resting ECG HR:73 bpm ECG Measurements Heart Rate 73 AXES VT 159 P 58 QRSd 74 QRS 34 QT 374 T 72 QTc 400 Conclusion SINUS RHYTHM WITH OCCASIONAL SUPRAVENTRICULAR PREMATURE COMPLEXES SEPTAL MYOCARDIAL INFARCTION , PROBABLY OLD [40+ ms Q WAVE IN V1/V2] ABNORMAL ECG UNCONFIRMED REPORT Electronically signed by : Florian Curry, 04/13/2025 15:49:48
--- OUTSIDE RECORDS SUMMARY | 2025-04-12 12:20 | XMS_ITS | Clinical Summary ---
[facility] [address] [place] [address] Care Team Providers Care Wellness Manager Name Role Phone Provider, No Known Primary [...] Name:Nicole Fields Payer ID:[id number] (NAIC) Type:POS Address: [facility] [id number] on file Care Teams Wellness Manager Relationship Specialty Start Date End Date Provider, [place] [address] PCP - General 11/28/16
--- NOTE | 2025-04-12 12:33 | ED_ITS ---
<Statement entered by Chiqui Curry MD - 04/13/25 15:42> I was consulted by the STEPHY, and we discussed the complexity of the problems being addressed. I approved the treatment and management plan for this patient's care in the emergency department, thus performing a substantive portion of the medical decision making. Chiqui Curry MD, TERRY, FACEP Discharge Plan Disposition Patient Disposition: Home, Self-Care Prescriptions Prescriptions: No Action trazodone 100 mg tablet 100 mg PO HS Patient Comments: TAKE 1 TABLET BY MOUTH ONCE DAILY insulin glargine [Lantus Solostar U-100 Insulin] 100 unit/mL (3 mL) insulin pen 100 unit SQ DAILY aspirin [Adult Low Dose Aspirin] 81 mg tablet,delayed release (DR/EC) 81 mg PO DAILY Qty: 30 2RF metformin 1,000 mg tablet PO nitroglycerin [Nitrostat] 0.4 mg tablet, sublingual 0.4 mg sublingual Q5M Qty: 30 2RF Rx Instructions: do not exceed 3 doses per episode atorvastatin 40 mg tablet 40 mg PO DAILY venlafaxine 75 mg capsule,extended release 24hr 75 mg PO DAILY Patient Comments: TAKE 1 CAPSULE BY MOUTH ONCE DAILY WITH FOOD hydrocodone-acetaminophen 7.5-325 mg tablet 1 tab PO Patient Comments: TAKE 1 TABLET BY MOUTH EVERY 6 HOURS NEEDED FOR 14 DAYS albuterol sulfate 90 mcg/actuation HFA aerosol inhaler 2 puff inhalation Q4H PRN (Reason: SOA) Qty: 8.5 2RF carvedilol [Coreg] 6.25 mg tablet 6.25 mg PO BID 90 Days Qty: 180 3RF Rx Instructions: must administer with a meal/food prasugrel HCl [Effient] 10 mg tablet 10 mg PO DAILY Qty: 90 3RF losartan 100 mg tablet 100 mg PO DAILY Qty: 90 3RF Stiolto Respimat 2.5-2.5 mcg/actuation mist See Rx Instructions .ROUTE .COMPLEX Qty: 12 3RF Dose Instruction: INHALE 2 PUFFS EVERY DAY Rx Instructions: INHALE 2 PUFFS EVERY DAY isosorbide mononitrate 30 mg tablet extended release 24 hr 30 mg PO DAILY 30 Days Qty: 30 3RF varenicline tartrate 0.5 mg Tablet 0.5 mg PO DAILY acyclovir 800 mg tablet 800 mg PO 5XDAY 7 Days Qty: 35 0RF Referrals Follow up/Referrals: Peter Patel MD [Primary Care Provider, Medical] - See instructions Miguel Pool MD [Staff Physician, Cardiology] - See instructions Activity Restrictions/Add. Instructions Additional Instructions/Restrictions: Call Dr. Pool's office and schedule follow-up appointment. If you develop any new or worsening symptoms, or if you become concerned for your health for any reason, return to the emergency department for evaluation. Clinical Impressions Clinical Impression: Chest pain Print Language Print Language: Urdu Discharge ED Provider: Andi Ca HPI <J Mick Curry MD - Last Filed: 04/12/25 12:35> General Chief Complaint: Chest Pain Stated Complaint: chest pain Time Seen by Provider: 04/12/25 12:20 History of Present Illness HPI narrative: Patient is a 69-year-old with a known history of coronary artery disease had 3 stents in her RCA placed within the last year followed by Dr. Pool's team on dual antiplatelet therapy including aspirin and Effient presents today currently asymptomatic but had 1 to 1-1/2 hours of chest pain that was substernal nonradiating not associated with dyspnea or diaphoresis or referred pain that happened just prior to arrival. At the moment no symptoms. No fevers chills etc. Related Data Home Medications ?Medication ?Instructions ?Recorded ?Confirmed insulin glargine 100 unit/mL (3 100 unit SQ DAILY 04/0203/15/25 mL) subcutaneous pen (Lantus Solostar U-100 Insulin) trazodone 100 mg tablet 100 mg PO HS 04/22/24 varenicline tartrate 0.5 mg tablet 0.5 mg PO DAILY 12/2303/15/25 hydrocodone 7.5 mg-acetaminophen 1 tab PO 09/15/24 325 mg tablet metformin 1,000 mg tablet mg PO 11/15/24 03/15/25 atorvastatin 40 mg tablet 40 mg PO DAILY 02/17/2503/01 venlafaxine 75 mg capsule,extended 75 mg PO DAILY 01/3003/29/25 release 24 hr Previous Rx's ?Medication ?Instructions ?Recorded aspirin 81 mg tablet,delayed 81 mg PO DAILY #30 tabs 0 05/24/24 release (Adult Low Dose Aspirin) nitroglycerin 0.4 mg sublingual 0.4 mg sublingual Q5M #30 tabs 10/04/24 tablet (Nitrostat) carvedilol 6.25 mg tablet (Coreg) 6.25 mg PO BID 90 da ys #180 tabs 10/19/24 prasugrel HCl 10 mg tablet 10 mg PO DAILY #90 tabs (Effient) losartan 100 mg tablet 100 mg PO DAILY #90 tabs albuterol sulfate 90 mcg/actuation 2 puff inhalation Q 4H PRN SOA #8.5 11/01/24 aerosol inhaler grams tiotropium 2.5 mcg-olodaterol 2.5 See Rx Instructions .Route 01/21/25 mcg/actuation mist for inhalation .COMPLEX #12 grams (Stiolto Respimat) isosorbide mononitrate 30 mg 30 mg PO DAILY 30 days #3 0 tabs 04/01/25 tablet,extended release 24 hr acyclovir 800 mg tablet 800 mg PO 5XDAY 7 days #35 t abs 04/05/25 Allergies Allergy/AdvReac Type Severity Reaction Status Date / Time acetaminophen (From Percocet) AdvReac Verified 03/15/25 10:39 oxycodone (From Percocet) AdvReac Verified 03/15/25 10:39 PFS <Chiqui Curry MD - Last Filed: 04/12/25 12:35> [facility] Disclaimer: The information contained in this section may have been updated after the patient was seen, as this information can be updated by other users. Medical History Tobacco abuse Tobacco abuse counseling Pulmonary emphysema Multiple lung nodules on CT Smoking greater than 30 pack years COPD (chronic obstructive pulmonary disease) Smoker Angina pectoris CAD in [place] artery Chest pain Diabetes mellitus Fatigue Dyspnea Typical angina Cancer Urinary tract infection Diabetes mellitus, type 2 Hyperlipidemia Hypertension Surgical History History of back surgery History of bladder surgery History of hysterectomy History of cholecystectomy Family History (Updated 03/29/25 @ 14:47 by Teresa Reese RN) Other No significant family history Social History Smoking Status: Current every day smoker tobacco type: cigarettes second hand exposure: No alcohol intake: never current occupational status: other Travel in the last 8 weeks?: None Have you lived/traveled outside US in past 30 days?: No Contact w/someone who lives/traveled outside US past 30 days?: No Exposure to someone with infectious disease in past 14 days?: No Do you have a fever (greater than 100.4 F or 38 C)?: No Have you tested positive for COVID-19?: No Exposed to someone with COVID-19 in past 14 days?: No Do you have a sore throat?: No Do you have a cough?: No Do you have any weakness?: No Do you have any diarrhea?: No Are you experiencing any unusual bleeding?: No Do you have any muscle aches/pain?: No Do you have any abdominal pain?: No Are you experiencing loss of taste or smell?: No Other Medical History Have you received the Flu Vaccine for this season: No Have you received the Pneumonia Vaccine: Yes <Andi Ca MD - Last Filed: 04/12/25 16:56> ROS Obtained: Yes Systems reviewed as appropriate & no additional complaints except as documented Physical Exam <Chiqui Curry MD - Last Filed: 04/12/25 12:35> Respiratory Respiratory exam: Present normal lung sounds bilaterally; Absent respiratory distress Cardiovascular Cardiovascular exam: Present regular rate; Absent normal rhythm <Andi Ca MD - Last Filed: 04/12/25 16:56> General General appearance: alert Neurological Exam Neurological exam: Present alert and oriented X3 HEART Score <Chiqui Curry MD - Last Filed: 04/12/25 12:35> HEART Score HEART Score assessment performed?: Yes History (anamnesis): Slightly suspicious ECG: Normal Age: >65 years Risk factors: Atherosclerosis history Troponin: </= normal limit HEART Score: 4 <Andi Ca MD - Last Filed: 04/12/25 16:56> HEART Score HEART Score: 4 Critical Care <Andi Ca MD - Last Filed: 04/12/25 16:56> Critical Care Time Critical Care Time: No Medical Decision Making <Chiqui Curry MD - Last Filed: 04/12/25 12:35> Vital Signs Vital Signs: 04/12/25 12:03 08/12/25 12:30 04/12/25 13:00 Temperature 98.7 F Temperature Source Oral Pulse Rate 69 72 Pulse Rate [Left Radial] 75 Respiratory Rate 17 13 19 Blood Pressure 95/72 L 100/68 L Blood Pressure [Right Arm] 135/77 Blood Pressure Mean [Right Arm] 96 Blood Pressure Source [Right Arm] Automatic Cuff Blood Pressure Position [Right Arm] Sitting 02 Sat by Pulse Oximetry 99 98 95 Oxygen Delivery Method Room Air 04/12/25 13:30 04/12/25 14:00 04/12/25 14:30 Temperature Temperature Source Pulse Rate 69 67 Pulse Rate [Left Radial] Respiratory Rate 13 17 17 Blood Pressure 93/62 L 121/69 118/66 Blood Pressure [Right Arm] Blood Pressure Mean [Right Arm] Blood Pressure Source [Right Arm] Blood Pressure Position [Right Arm] 02 Sat by Pulse Oximetry 97 95 Oxygen Delivery Method 04/12/25 15:40 04/12/25 16:00 04/12/25 16:30 Temperature Temperature Source Pulse Rate 67 62 67 Pulse Rate [Left Radial] Respiratory Rate Blood Pressure 125/74 139/74 147/70 H Blood Pressure [Right Arm] Blood Pressure Mean [Right Arm] Blood Pressure Source [Right Arm] Blood Pressure Position [Right Arm] 02 Sat by Pulse Oximetry 97 98 98 Oxygen Delivery Method Lab Data Labs: Lab Results 04/12/25 12:24: WBC 9.0, RBC 3.91 L, Hgb 12.1 L, Hct 34.9 L, MCV 89.3, MCH 30.9, MCHC 34.7, RDW 14.6, Plt Count 231, MPV 9.8, Neut % (Auto) 54.7, Lymph % (Auto) 36.9, Real % (Auto) 6.6, Eos % (Auto) 1.3, Baso % (Auto) 0.3, Neut # (Auto) 4.9, Lymph # (Auto) 3.3, Real # (Auto) 0.6, Eos # (Auto) 0.1, Baso # (Auto) 0.0, S odium 133 L, Potassium 3.6, Chloride 95 L, Carbon Dioxide 28, Anion Gap 13.6, B UN 22 H, Creatinine 1.10 H, Estimated Creat Clear 50, Estimated GFR 50 L, Est GFR ( Amer) 60, Glucose 116 H, Calcium 10.0, Total Bilirubin 0.5, AST 33, ALT 20, Alkaline Phosphatase 65, Troponin I < 0.01, Total Protein 7.4, Albumin 4.2, Globulin 3.2, Albumin/Globulin Ratio 1.3 04/12/25 15:41: Troponin I < 0.01 04/12/25 12:24 04/12/25 12:24 Response Orders (Tests/Meds): ORDERS Category Date Time Status CXR --portable [XR chest portable] Stat Exams 04/12/25 13:02 Completed CBC w/Auto Diff [Complete Blood Count Auto Diff] Stat Lab 04/12/25 12:24 Completed CMP [Comprehensive Metabolic Panel] Stat Lab 04/12/25 12:24 Completed Trop I [Troponin I] Stat Lab 04/12/25 12:24 Completed Troponin I Q3H Lab 04/12/25 15:41 Completed Troponin I Q3H Lab 04/12/25 18:45 Ordered ECG Data Tracing #1: Attestation: I reviewed this ECG and interpreted as documented below: ECG Narrative: Ventricular rate of 73 normal sinus rhythm no acute ischemic changes noted normal axis no significant conduction abnormalities noted MDM Narrative Medical Decision Narrative: 69-year-old with above history and physical EKG is unremarkable patient is currently asymptomatic this is not consistent with a pulmonary embolism or an ongoing emergent medical condition at the moment. It is possible that she had a cardiac event we will get serial troponins for that reason to rule out any type of myocardial injury or acute coronary syndrome. Patient is on dual antiplatelet therapy and is closely followed by our cardiology team. Patient placed in ED observation status pending second troponin. She will let us know if her symptoms return. <Andi Ca MD - Last Filed: 04/12/25 16:56> Bi Inquiry Pt receiving controlled substance: No Vital Signs Vital Signs: 04/12/25 12:03 04/12/25 12:30 04/12/25 13:00 Temperature 98.7 F Temperature Source Oral Pulse Rate 69 72 Pulse Rate [Left Radial] 75 Respiratory Rate 17 13 19 Blood Pressure 95/72 L 100/68 L Blood Pressure [Right Arm] 135/77 Blood Pressure Mean [Right Arm] 96 Blood Pressure Source [Right Arm] Automatic Cuff Blood Pressure Position [Right Arm] Sitting 02 Sat by Pulse Oximetry 99 98 95 Oxygen Delivery Method Room Air 04/12/25 13:30 04/12/25 14:00 04/12/25 14:30 Temperature Temperature Source Pulse Rate 69 67 Pulse Rate [Left Radial] Respiratory Rate 13 17 17 Blood Pressure 93/62 L 121/69 118/66 Blood Pressure [Right Arm] Blood Pressure Mean [Right Arm] Blood Pressure Source [Right Arm] Blood Pressure Position [Right Arm] 02 Sat by Pulse Oximetry 97 95 Oxygen Delivery Method 04/12/25 15:40 04/12/25 16:00 04/12/25 16:30 Temperature Temperature Source Pulse Rate 67 62 67 Pulse Rate [Left Radial] Respiratory Rate Blood Pressure 125/74 139/74 147/70 H Blood Pressure [Right Arm] Blood Pressure Mean [Right Arm] Blood Pressure Source [Right Arm] Blood Pressure Position [Right Arm] 02 Sat by Pulse Oximetry 97 98 98 Oxygen Delivery Method Lab Data Labs: Lab Results 04/12/25 12:24: WBC 9.0, RBC 3.91 L, Hgb 12.1 L, Hct 34.9 L, MCV 89.3, MCH 30.9, MCHC 34.7, RDW 14.6, Plt Count 231, MPV 9.8, Neut % (Auto) 54.7, Lymph % (Auto) 36.9, Real % (Auto) 6.6, Eos % (Auto) 1.3, Baso % (Auto) 0.3, Neut # (Auto) 4.9, Lymph # (Auto) 3.3, Real # (Auto) 0.6, Eos # (Auto) 0.1, Baso # (Auto) 0.0, S odium 133 L, Potassium 3.6, Chloride 95 L, Carbon Dioxide 28, Anion Gap 13.6, B UN 22 H, Creatinine 1.10 H, Estimated Creat Clear 50, Estimated GFR 50 L, Est GFR ( Amer) 60, Glucose 116 H, Calcium 10.0, Total Bilirubin 0.5, AST 33, ALT 20, Alkaline Phosphatase 65, Troponin I < 0.01, Total Protein 7.4, Albumin 4.2, Globulin 3.2, Albumin/Globulin Ratio 1.3 04/12/25 15:41: Troponin I < 0.01 Response Orders (Tests/Meds): ORDERS Category Date Time Status CXR --portable [XR chest portable] Stat Exams 04/12/25 13:02 Completed CBC w/Auto Diff [Complete Blood Count Auto Diff] Stat Lab 04/12/25 12:24 Completed CMP [Comprehensive Metabolic Panel] Stat Lab 04/12/25 12:24 Completed Trop I [Troponin I] Stat Lab 04/12/25 12:24 Completed Troponin I Q3H Lab 04/12/25 15:41 Completed Troponin I Q3H Lab 04/12/25 18:45 Ordered MDM Narrative Medical Decision Narrative: 69-year-old with above history and physical EKG is unremarkable patient is currently asymptomatic this is not consistent with a pulmonary embolism or an ongoing emergent medical condition at the moment. It is possible that she had a cardiac event we will get serial troponins for that reason to rule out any type of myocardial injury or acute coronary syndrome. Patient is on dual antiplatelet therapy and is closely followed by our cardiology team. Patient placed in ED observation status pending second troponin. She will let us know if her symptoms return. Andi Ca MD I assumed care of this patient at 1500 pending repeat troponin. Repeat troponin resulted at 1655 and was also negative. The remainder of the patient's workup is unremarkable. Patient has not had recurrence of symptoms while she is here. She notes that she is followed by Dr. Pool's office and did miss an appointment today. I encouraged her to follow-up with Dr. Pool's team to schedule an appointment. Return precautions were given. All questions were answered. She demonstrated understanding and was agreement this plan. She was then discharged from the emergency department in stable condition
[2025-04-12 12:35] LABS: Hematocrit 34.9 % (37.0-47.0); Hemoglobin 12.1 g/dL (12.2-16.2); Immature Granulocytes % 0.2 %; Mean Corpuscular HGB Conc 34.7 g/dL (31.8-35.4); Mean Corpuscular Hemoglobin 30.9 pg (27.0-31.2); Mean Corpuscular Volume 89.3 fl (81-99); Nucleated Red Blood Cells % 0 %; Platelet Count 231 K/mm3 (142-424); Red Blood Count 3.91 M/mm3 (4.20-5.40); Red Cell Distribution Width-SD 47.4 fL; White Blood Count 9.0 K/mm3 (4.8-10.8)
[2025-04-12 12:42] LABS: Albumin Level 4.2 g/dl (3.5-5.0); Chloride 95 mmol/L (98-107); Potassium 3.6 mmoL/L (3.5-5.1); Sodium 133 mmol/L (136-145)
[2025-04-12 12:45] LABS: Alanine Aminotransferase 20 U/L (12-78); Albumin/Globulin Ratio 1.3 (1.1-1.8); Alkaline Phosphatase 65 U/L (38-126); Anion Gap 13.6 mEq/L (5-15); Aspartate Amino Transferase 33 U/L (14-36); Bilirubin,Total 0.5 mg/dl (0.2-1.3); Blood Urea Nitrogen 22 mg/dl (7-17); Calcium 10.0 mg/dl (8.4-10.2); Carbon Dioxide 28 mmol/L (22.0-30.0); Creatinine Clearance Estimated 50 mL/min (50-200); Creatinine,Serum 1.10 mg/dl (0.52-1.04); Estimated Glomerular Filt Rate 50 ml/min (>60); GFR (African American) 60 ML/MIN (>60); Globulin 3.2 g/dL (1.3-3.2); Glucose 116 mg/dl (74-100); Total Protein,Serum 7.4 g/dl (6.3-8.2)
[2025-04-12 12:58] LABS: Troponin I < 0.01 ng/ml (0.00-0.034)
--- NOTE | 2025-04-12 13:02 | XR_ITS ---
FINAL REPORT CLINICAL HISTORY: dyspnea FINDINGS: A single PA view of the chest was obtained. There is no prior exam for comparison. The cardiac and mediastinal silhouettes are within normal limits. There are emphysematous changes. The lungs are otherwise clear. There is no effusion or pneumothorax. IMPRESSION: No radiographic evidence of acute cardiac or pulmonary disease on this single view of the chest. Reviewed, Interpreted and Dictated by [place]ia Brannon MD Transcribed by Clau Pena Authenticated and [facility]
--- NOTE | 2025-04-12 13:05 | PC.NURSE ---
patient provided warm blanket at this time
--- NOTE | 2025-04-12 14:05 | PC.NURSE ---
rounded on pt at this time. no needs reported
--- NOTE | 2025-04-12 16:30 | PC.NURSE ---
called lab about pt trop. lab stated they had to rerun it because their analyzer went down. they stated it would be 20 minutes
[2025-04-12 16:52] LABS: Troponin I < 0.01 ng/ml (0.00-0.034)
--- NOTE | 2025-04-12 16:53 | PC.NURSE ---
dr milligan at bedside to update pt and family
== END 2025-04-12 17:02 | disposition home or self-care (01) ==
PROVIDERS: Student in an Organized Health Care Education/Training Program; Emergency Provider Student in an Organized Health Care Education/Training Program; PCP Family Medicine
DX: R07.9 Chest pain, unspecified (principal); F17.210 Nicotine dependence, cigarettes, uncomplicated; J44.9 Chronic obstructive pulmonary disease, unspecified; I25.119 Atherosclerotic heart disease of native coronary artery with unspecified angina pectoris; I11.9 Hypertensive heart disease without heart failure; E78.5 Hyperlipidemia, unspecified
CPT/HCPCS: 71045; 80053; 84484; 85025; 93005; 99284

== ENCOUNTER 2025-05-05 10:43 | Outpatient (CLI) | payer MEDICARE, SELFPAY ==
--- NOTE | 2025-05-05 10:48 | XR_ITS ---
FINAL REPORT CLINICAL HISTORY: RT HIP PAIN, nki COMPARISON: None FINDINGS: RIGHT HIP Two views of the right hip demonstrate with an AP view of the pelvis no acute fracture or dislocation. The joint spaces appear normal. There is moderate joint space narrowing. Subchondral sclerosis is noted. There is osteophyte formation in the acetabular margin. No soft tissue abnormality is seen. IMPRESSION: Moderate osteoarthritis without acute bony abnormality. Reviewed, Interpreted and Dictated by Grey Prieto MD Transcribed by Natalia Cardoso Authenticated and [facility]
--- OUTSIDE RECORDS SUMMARY | 2025-05-05 10:49 | XMS_ITS | Clinical Summary ---
[facility] Address [address] [place] [address] Care Team Providers Care Teacher Counselor Name Role Phone Provider, No Known Primary [...] HEPATITIS C SCREENING 11/28/2016 COVID-19 Vaccine ( season) 2025 INFLUENZA VACCINE 06/01/2025 Insurance Member Subscriber Plan / Payer (Ef fective 2020-Present) Name:Nicole iFelds Relation to Subscriber:Self Name:Nicole Fields Payer ID:[id number] (NAIC) Type:POS Address: [facility] [id number] on file Care Teams Teacher Counselor Relationship Specialty Start Date End Date Provider, [place] [address] PCP - General 11/28/16
== END 2025-05-05 23:59 | disposition home or self-care (01) ==
LOC: RAD 10:44
PROVIDERS: PCP Family Medicine; Visit Provider Nurse Practitioner Family
DX: M16.11 Unilateral primary osteoarthritis, right hip (principal)
CPT/HCPCS: 73502

== ENCOUNTER 2025-07-06 13:13 | Outpatient (CLI) | payer MEDICARE, SELFPAY ==
--- OUTSIDE RECORDS SUMMARY | 2025-07-06 13:26 | XMS_ITS | Clinical Summary ---
Author Organization [facility] Address [address] [place] [address] Care Team Providers Care Phlebotomy Coordinator Name Role Phone Provider, No Known Primary [...] ANNUAL PHYSICAL 11/28/2016 HEPATITIS C SCREENING 11/28/2016 INFLUENZA VACCINE 04/01/2025 COVID-19 Vaccine (1 - season) 2025 Insurance Member Subscriber Plan / Payer (Ef fective 2020-Present) Name:Nicole Fields Relation to Subscriber:Self Name:Nicole Fields Payer ID:[id number] (NAIC) Type:POS Address: [facility] [id number] on file Care Teams Phlebotomy Coordinator Relationship Specialty Start Date End Date Provider, [place] [address] PCP - General 11/28/16
--- NOTE | 2025-07-06 13:30 | CT_ITS ---
FINAL REPORT TECHNIQUE: Thin section axial images were obtained through the lungs using a low-dose technique per lung cancer screening protocol. Reconstruction images were obtained using the axial data. Exam was performed using dose reduction technique. CLINICAL HISTORY: lung cancer screening current smoker 2ppd x55 years COMPARISON: None FINDINGS: CTDLvol: 2.90 DLP: 119.33 Current smoker 110 pack year history Lungs: No acute pulmonary abnormality. There is a 3 mm lingular nodule present, best seen on image #61 of series 4. There is a right middle lobe nodule, 4 mm in size, best seen on image #68 of series 4. There is also a right upper lobe 3 mm nodule, best seen on image #34 of series 4. There is evidence of remote calcified granulomatous disease. Changes of emphysema are present. Lymph nodes: No thoracic lymphadenopathy. Mediastinum: Heart size is normal. Note is made of prominent coronary artery calcifications. Pleura/pericardium: No pleural or pericardial effusion. Other: A nonobstructing stone is present in the left renal collecting system. IMPRESSION: 3 pulmonary nodules are identified, measuring up to 4 mm in size as described above. Prominent coronary artery calcifications are present. Lung RADS: 2S, the S designation for prominent coronary artery calcifications. Recommendation: 12-month follow-up LDCT. Reviewed, Interpreted and Dictated by [place] Brannon MD Transcribed by Yamini Hughes Authenticated and [facility]
== END 2025-07-06 23:59 | disposition home or self-care (01) ==
PROVIDERS: PCP Nurse Practitioner Family; Visit Provider Internal Medicine Pulmonary Disease
DX: Z12.2 Encounter for screening for malignant neoplasm of respiratory organs (principal); F17.210 Nicotine dependence, cigarettes, uncomplicated; J43.9 Emphysema, unspecified; J98.4 Other disorders of lung; R91.8 Other nonspecific abnormal finding of lung field; I25.10 Atherosclerotic heart disease of native coronary artery without angina pectoris; N20.0 Calculus of kidney
CPT/HCPCS: 71271

== ENCOUNTER 2025-08-09 06:41 | Outpatient (CLI) | payer MEDICARE, SELFPAY ==
--- NOTE | 2025-08-09 | CA_ITS ---
APPROVED REPORT Exam: Pharmacologic Technologist: Suha Lam Stress Nurse: Mag PYLE, RN Ht: 5 ft 5 in Wt: 149 lbs BSA: 1.75 m2 HR: 67 bpm BP: 147/71 mmHg Indications: Coronary artery disease, Hypertension, Fatigue, Shortness of breath. Stress Test Details Test: Lexiscan HR Resting HR: 67 bpm Max Heart Rate (APMHR): 153.052626 bpm Max HR Achieved: 92 bpm Target HR (85% APMHR): 130.506910 bpm % of APMHR: 60.13 Recovery HR: 84 bpm BP Resting BP: 147.0/71.0 mmHg Max BP: 165.0/69.0 mmHg Recovery BP: 148.0/70.0 mmHg ECG Resting ECG: Sinus rhythm Stress ECG Conclusion Lungs clear to auscultation prior to test start. Symptoms: Dyspnea Arrhythmias/Ectopy: PAC ST-T Changes: Flattening/downsloping ST segment changes. Electronically signed by : Maggie Izquierdo MD 08/11/2025 01:36:04
--- OUTSIDE RECORDS SUMMARY | 2025-08-09 06:44 | XMS_ITS | Clinical Summary ---
[facility] Address [address] [place] [address] Care Team Providers Care Paster Operator Name Role Phone Provider, No Known Primary [...] Name:Nicole Fields Payer ID:[id number] (NAIC) Type:POS Address: [facility] [id number] on file Care Teams Paster Operator Relationship Specialty Start Date End Date Provider, [place] [address] PCP - General 11/28/16
--- NOTE | 2025-08-09 07:00 | NM_ITS ---
APPROVED REPORT Exam: Nuclear Stress Test Indication: Chest pain, Fatigue, Abnormal EKG, HTN, DM, High cholesterol, Tobacco use, Family history, CAD Patient Location: Outpatient Stress Tech: Suha Lam NM Tech:Loriane Gallegos, ARRT, RT (R)(N) Ht: 5 ft 5 in Wt: 140 lbs Bra Size: 36C HR: 70 bpm BP: 147/71 mmHg BSA: 1.70 m2 TID: 1.27 BMI: 23.2 History: Chest pain, Fatigue, Abnormal EKG, HTN, DM, High cholesterol, Tobacco use, Family history, CAD Procedure: Patient received 0.4 mg of intravenous Lexiscan, resting heart rate 70 bpm, resting blood pressure 147/71 mmHg, with Lexiscan maximum heart rate achieved was 92 bpm which is % of the maximum predicted heart rate and blood pressure was 165/69 mmHg. With Lexiscan, patient denied any complaint of chest pain. Cardiac Stress and Resting SPECT Images: Cardiac Stress and Resting SPECT images were obtained using technetium 99m Myoview 32.1 mCi stress and 10.49 mCi at rest. Resting and stress imaging in supine and prone positions demonstrate no evidence of fixed or reversible perfusion defects. There is increase in transient ischemic dilatation ratio (TID 1.27), which may be suggestive of possible multivessel disease or balanced ischemia. Gated imaging demonstrates normal global LV systolic function. LVEF is calculated at 67%. Conclusion: No evidence of fixed or reversible perfusion defects. There is increase in transient ischemic dilatation ratio (TID 1.27), which may be suggestive of possible multivessel disease or balanced ischemia. Gated imaging demonstrates normal global LV systolic function. LVEF is calculated at 67%. Electronically signed by : Maggie Izquierdo MD 08/11/2025 01:35:56
[2025-08-09 08:00] VITALS: BP 147/71; PULSE 67; RESP 16
[2025-08-09] MEDS: SODIUM CHLORIDE 0.9% 10ML SYR (RAD ONLY) 10 ML IV ×2 (08:17)
[2025-08-09] MEDS: ISOTOPE MYOVIEW (PER STUDY) 1 DOSE IV (08:17)
--- NOTE | 2025-08-09 09:00 | CA_ITS ---
APPROVED REPORT EXAM: Comprehensive 2D, Doppler, and color-flow Echocardiogram Content Development Specialist: Yulissa Rabago CRT Ht: 5 ft 5 in Wt: 149lbs BSA: 1.75 BP: 171/82 mmHg Indications: Abnormal ECG, COPD, Shortness of Breath, Diabetes, Fatigue, CAD, Hyperlipidemia, Hypertension/HDD 2D Dimensions LA Volume 19.60 mL LA Volume Index 10.90 mL/m2 (M/F) 16-34 M-Mode Dimensions RVDd 1.73 cm (0.9-2.6) LA Diam 3.21 cm (1.9-4.0) LVDd 4.58 cm (3.5-5.7) LVDs 2.83 cm (3.5-5.7) IVSd 1.34 cm (0.6-1.1) PWd 0.64 cm (0.6-1.1) EF (Teich) 68.50% FS 38.20% EDV (Teich) 96.30 mL TAPSE 2.35 (<1.7) ESV (Teich) 30.30 mL LV Diastology E Decel Time 280 (160-240 msec) E/A Ratio 0.60 MED A' 12.20 cm/s LAT A' 11.80 cm/s Aortic Valve AO Peak GR. 9.10 mmHg Mitral Valve MV A Velocity 95.0 (40-130 cm/s) E/A Ratio 0.60 Pulmonary Valve PV Peak Velocity 107.0 (50-150 cm/s) Tricuspid Valve TR P. Velocity 232.00 cm/s RAP Estimate 10.00 mmHg RVSP 31.50 mmHg Left Ventricle The left ventricle is normal size. Left ventricular systolic function is normal. The left ventricular ejection fraction is within the normal range. There is increased left ventricular wall thickness. The septum is asynchronous. Transmitral Doppler flow pattern suggests impaired LV relaxation. LVEF is 60% Right Ventricle The right ventricle is normal size. The right ventricular systolic function is normal. Atria Left atrium is mildly dilated. Right atrium is mildly dilated. There is no color Doppler evidence of interatrial shunt. Aortic Valve The aortic valve is mildly thickened. There is no hemodynamically significant aortic valvular stenosis. Trace aortic regurgitation is present. Mitral Valve The mitral valve is normal in structure. No evidence of mitral valve stenosis. Mild mitral regurgitation is present. Tricuspid Valve The tricuspid valve leaflets are thin and pliable. Trace tricuspid regurgitation. There is insufficient TR jet to estimate RVSP. Pulmonic Valve The pulmonary valve is grossly normal in structure. Trace pulmonic valve regurgitation is present. Great Vessels The aortic root is normal in size. IVC is normal in size and collapses >50% with inspiration. Pericardium There is no pericardial effusion. Conclusion Normal biventricular systolic function. The septum is asynchronous. Mild biatrial dilation. Mild MR. Electronically signed by : Maggie Izquierdo MD 08/11/2025 01:40:01
== END 2025-08-09 23:59 | disposition home or self-care (01) ==
LOC: RAD 06:42
PROVIDERS: PCP Nurse Practitioner Family; Visit Provider Physician Assistant
DX: I34.0 Nonrheumatic mitral (valve) insufficiency (principal); I11.9 Hypertensive heart disease without heart failure; I49.1 Atrial premature depolarization; I25.10 Atherosclerotic heart disease of native coronary artery without angina pectoris; J44.9 Chronic obstructive pulmonary disease, unspecified; E11.9 Type 2 diabetes mellitus without complications; E78.00 Pure hypercholesterolemia, unspecified; R94.31 Abnormal electrocardiogram [ECG] [EKG]; R93.1 Abnormal findings on diagnostic imaging of heart and coronary circulation; R94.39 Abnormal result of other cardiovascular function study
CPT/HCPCS: 78452; 93017; 93018; 93306; A9502; J2785

== ENCOUNTER 2025-08-19 08:43 | Day surgery (SDC) | payer MEDICARE, SELFPAY ==
[2025-08-19] VITALS (12 sets, daily range): BP systolic 110–155; BP diastolic 58–76; PULSE 57–75; RESP 18–20; O2SAT 92–99; BMI 25.0
--- NOTE | 2025-08-19 07:11 | IR_ITS ---
APPROVED REPORT Patient Location: Outpatient PROCEDURES Left heart catheterization Left ventriculogram Selective coronary angiogram Intravascular ultrasound of the right coronary INDICATION Coronary artery disease, Abnormal Myoview, Angiographic ambiguity, In-stent restenosis Informed consent was obtained prior to the procedure. COMPLICATIONS NONE Estimated Blood Loss: LESS THAN 10 ML TECHNIQUE One percent lidocaine used to anesthetize the right anterior aspect of the wrist. The right radial artery was accessed via the Seldinger technique. A 6 [place] sheath was placed in the right radial artery. 2.5 mg of Verapamil, 800 mcg of nitroglycerin, 1mg Lidocaine and 5000 U Heparin were given through the arterial sheath. The JL3 catheter was also used to perform left heart catheterization, left ventriculogram and selective coronary angiogram. At the end of the diagnostic angiogram therapeutic Was administered giving a therapeutic ACT and the guide catheter was placed in the right coronary followed by Choice PT extra-support wire placed distally. Intravascular sound probe was advanced which demonstrated wide patency of the stents with good stent apposition. Distally in the area of interest there was mild atheromatous plaque and in-stent restenosis nothing greater than 30%. At the end of procedure the apparatus was removed the sheath was removed and hemostasis was achieved using TR banding patient was transferred to the postop boarding care in stable condition ANGIOGRAPHIC RESULTS The left main artery Normal The left anterior descending artery Widely patent with mild proximal 10 to 20% luminal regularities The circumflex artery Large codominant with mild 10% luminal regularities with a 40% stenosis and a large first obtuse marginal artery The right coronary artery Is codominant and has stents in the proximal mid to distal segment in a contiguous manner. In the mid to distal transition zone there is 30 to 40% in-stent restenosis The KHAN ventriculogram reveals Normal 65% The left ventricular end-diastolic pressure 20 mmHg IMPRESSION Patent coronary arteries as described above Normal ejection fraction Mildly elevated LVEDP PLAN 1. Medical management with aggressive risk factor modification Electronically signed by : Miguel Pool MD 08/19/2025 12:03:12
[2025-08-19 09:06] LABS: Hematocrit 38.3 % (37.0-47.0); Hemoglobin 12.8 g/dL (12.2-16.2); Immature Granulocytes % 0.2 %; Mean Corpuscular HGB Conc 33.4 g/dL (31.8-35.4); Mean Corpuscular Hemoglobin 31.8 pg (27.0-31.2); Mean Corpuscular Volume 95.0 fl (81-99); Nucleated Red Blood Cells % 0 %; Platelet Count 228 K/mm3 (142-424); Red Blood Count 4.03 M/mm3 (4.20-5.40); Red Cell Distribution Width-SD 49.0 fL; White Blood Count 8.5 K/mm3 (4.8-10.8)
[2025-08-19 09:23] LABS: Chloride 105 mmol/L (98-107); Potassium 3.8 mmoL/L (3.5-5.1); Sodium 140 mmol/L (136-145)
[2025-08-19 09:26] LABS: Anion Gap 12.8 mEq/L (5-15); Blood Urea Nitrogen 17 mg/dl (7-17); Carbon Dioxide 26 mmol/L (22.0-30.0); Creatinine Clearance Estimated 59 mL/min (50-200); Creatinine,Serum 1.00 mg/dl (0.52-1.04); Estimated Glomerular Filt Rate 55 ml/min (>60); GFR (African American) 67 ML/MIN (>60)
[2025-08-19 09:27] LABS: Calcium 9.9 mg/dl (8.4-10.2); Glucose 117 mg/dl (74-100)
[2025-08-19] MEDS: HEPARIN 1,000 UNITS/500ML NS (CATH LAB) 3000 UNIT IV (10:47)
[2025-08-19] MEDS: NITROGLYCERIN 800MCG/8ML SYR (CATH LAB) 800 MCG IA (10:48)
[2025-08-19] MEDS: VERAPAMIL 2.5MG/ML 2ML VIAL 2.5 MG IV (10:48)
[2025-08-19] MEDS: HEPARIN 1,000 UNITS/ML 10ML VIAL (CATH LAB) 5000 UNIT IV (10:48)
[2025-08-19] MEDS: 0.9 % SODIUM CHLORIDE 500 ML 25 ML IV (10:48)
[2025-08-19] MEDS: LIDOCAINE 1% 10ML MDV 10 ML IJ (10:48)
[2025-08-19] MEDS: MIDAZOLAM HCL 1MG/ML 5ML VIAL 1 MG IV (10:49)
[2025-08-19] MEDS: FENTANYL 100MCG/2ML VIAL 50 MCG IV (10:49)
[2025-08-19] MEDS: IOPAMIDOL-370 (76%);100ML BOTTLE 80 ML IV (11:57)
== END 2025-08-19 14:03 | disposition home or self-care (01) ==
LOC: CATHLAB 08:44
PROVIDERS: PCP Nurse Practitioner Family; Visit Provider Internal Medicine
PROC: 4A023N7 Measurement of Cardiac Sampling and Pressure, Left Heart, Percutaneous Approach (ICD-10-PCS; CPT 93452; principal; 2025-08-19 09:45)
DX: I25.10 Atherosclerotic heart disease of native coronary artery without angina pectoris (principal); T82.855A Stenosis of coronary artery stent, initial encounter; R93.1 Abnormal findings on diagnostic imaging of heart and coronary circulation; R94.31 Abnormal electrocardiogram [ECG] [EKG]; R94.39 Abnormal result of other cardiovascular function study; E11.9 Type 2 diabetes mellitus without complications; I10 Essential (primary) hypertension; J44.9 Chronic obstructive pulmonary disease, unspecified; E78.49 Other hyperlipidemia; F17.210 Nicotine dependence, cigarettes, uncomplicated; Z79.82 Long term (current) use of aspirin; Z79.1 Long term (current) use of non-steroidal anti-inflammatories (NSAID); Z79.84 Long term (current) use of oral hypoglycemic drugs; Z79.4 Long term (current) use of insulin; Z79.899 Other long term (current) drug therapy; Z88.5 Allergy status to narcotic agent; Z88.8 Allergy status to other drugs, medicaments and biological substances; Z95.5 Presence of coronary angioplasty implant and graft; Y84.8 Other medical procedures as the cause of abnormal reaction of the patient, or of later complication, without mention of misadventure at the time of the procedure
CPT/HCPCS: 80048; 85025; 92978; 93458; 99152; C1725; C1769; C1887; J1200; J1644; J3010; J7040; Q9967

== ENCOUNTER 2025-08-23 08:18 | Day surgery (SDC) | payer MEDICARE, SELFPAY ==
[2025-08-23] VITALS (8 sets, daily range): BP systolic 107–131; BP diastolic 48–66; PULSE 54–72; RESP 20; O2SAT 92–99; BMI 25.0
--- NOTE | 2025-08-23 07:50 | IR_ITS ---
APPROVED REPORT Patient Location: Outpatient PROCEDURES Bilateral selective renal angiogram INDICATION Renovascular hypertension, Suspect renal artery stenosis Informed consent was obtained prior to the procedure. COMPLICATIONS none Estimated Blood Loss: less than 10ml TECHNIQUE One percent lidocaine used to anesthetize the right anterior aspect of the wrist. The right radial artery was accessed via the Seldinger technique. A 6 Portuguese sheath was placed in the right radial artery. 2.5 mg of Verapamil, 800 mcg of nitroglycerin, 1mg Lidocaine and 5000 U Heparin were given through the arterial sheath. A 110 cm Poppa catheter was used to perform bilateral selective renal angiography ANGIOGRAPHIC RESULTS Left renal artery is singular and has an ostial and proximal 10% stenosis Right renal artery has a dual arterial supply with the superior branch supplying 85% of the kidney which is widely patent with mild 10% ostial stenosis. An inferior branch supplying 15% of the kidney is widely patent IMPRESSION Mild bilateral renal artery stenosis PLAN 1. Treatment of essential hypertension 2. Medical management 3. Evaluation for possible renal denervation if applicable Electronically signed by : Miguel Pool MD 08/23/2025 11:48:46
[2025-08-23 08:50] LABS: Hematocrit 38.1 % (37.0-47.0); Hemoglobin 12.5 g/dL (12.2-16.2); Immature Granulocytes % 0.2 %; Mean Corpuscular HGB Conc 32.8 g/dL (31.8-35.4); Mean Corpuscular Hemoglobin 31.3 pg (27.0-31.2); Mean Corpuscular Volume 95.3 fl (81-99); Nucleated Red Blood Cells % 0 %; Platelet Count 233 K/mm3 (142-424); Red Blood Count 4.00 M/mm3 (4.20-5.40); Red Cell Distribution Width-SD 49.3 fL; White Blood Count 8.6 K/mm3 (4.8-10.8)
[2025-08-23 08:52] LABS: Chloride 105 mmol/L (98-107); Sodium 140 mmol/L (136-145)
[2025-08-23 08:53] LABS: Potassium 3.8 mmoL/L (3.5-5.1)
[2025-08-23 08:55] LABS: Blood Urea Nitrogen 18 mg/dl (7-17); Creatinine Clearance Estimated 59 mL/min (50-200); Creatinine,Serum 0.90 mg/dl (0.52-1.04); Estimated Glomerular Filt Rate 62 ml/min (>60); GFR (African American) 76 ML/MIN (>60)
[2025-08-23 08:56] LABS: Anion Gap 10.8 mEq/L (5-15); Calcium 10.1 mg/dl (8.4-10.2); Carbon Dioxide 28 mmol/L (22.0-30.0); Glucose 108 mg/dl (74-100)
[2025-08-23] MEDS: NITROGLYCERIN 800MCG/8ML SYR (CATH LAB) 800 MCG IA (10:30)
[2025-08-23] MEDS: 0.9 % SODIUM CHLORIDE 500 ML 25 ML IV (10:30)
[2025-08-23] MEDS: VERAPAMIL 2.5MG/ML 2ML VIAL 2.5 MG IV (10:31)
[2025-08-23] MEDS: LIDOCAINE 1% 10ML MDV 10 ML IJ (10:31)
[2025-08-23] MEDS: HEPARIN 1,000 UNITS/500ML NS (CATH LAB) 3000 UNIT IV (10:31)
[2025-08-23] MEDS: HEPARIN 1,000 UNITS/ML 10ML VIAL (CATH LAB) 5000 UNIT IV (10:31)
[2025-08-23] MEDS: FENTANYL 100MCG/2ML VIAL 50 MCG IV (10:57)
[2025-08-23] MEDS: MIDAZOLAM HCL 1MG/ML 5ML VIAL 1 MG IV (10:57)
== END 2025-08-23 12:58 | disposition home or self-care (01) ==
PROVIDERS: PCP Nurse Practitioner Family; Visit Provider Internal Medicine
DX: I70.1 Atherosclerosis of renal artery (principal); I15.0 Renovascular hypertension; I25.119 Atherosclerotic heart disease of native coronary artery with unspecified angina pectoris; R93.1 Abnormal findings on diagnostic imaging of heart and coronary circulation; I10 Essential (primary) hypertension; R94.31 Abnormal electrocardiogram [ECG] [EKG]; E11.9 Type 2 diabetes mellitus without complications; J44.9 Chronic obstructive pulmonary disease, unspecified; E78.49 Other hyperlipidemia; F17.210 Nicotine dependence, cigarettes, uncomplicated; Z79.02 Long term (current) use of antithrombotics/antiplatelets; Z79.84 Long term (current) use of oral hypoglycemic drugs; Z79.82 Long term (current) use of aspirin; Z79.4 Long term (current) use of insulin; Z79.899 Other long term (current) drug therapy; Z88.5 Allergy status to narcotic agent; Z88.8 Allergy status to other drugs, medicaments and biological substances; Z95.5 Presence of coronary angioplasty implant and graft
CPT/HCPCS: 36252; 80048; 85025; 99152; C1725; C1769; J1644; J3010; J7040; Q9967